=== PATIENT | female | born 1945 | race Caucasian/White ===

== ENCOUNTER 2021-06-21 18:03 | Inpatient (IN) ==
[2021-06-21 20:02] LABS: Basophils % 0.2 % (0.0-0.8); Eosinophils # 0.1 10*3/uL (0.0-0.87); Eosinophils % 2.2 % (0.00-10.9); Hematocrit 35.9 VOL% (35.7-47.0); Hemoglobin 11.9 GM/DL (12.0-16.0); Immature Granulocytes % 0.2 %; Immature Granulocytes Absolute 0.01 #; Lymphocytes # 0.8 10*3/uL (1.4-4.0); Lymphocytes % 20.2 % (21.3-54.2); Mean Corpuscular HGB Conc 33.1 GM/DL (32-36); Mean Corpuscular Volume 88.9 FL (87-102); Mean Platelet Volume 9.6 FL (9.6-12.0); Monocytes % 7.2 % (1.7-12.7); Platelet Count 87 T/CUMM (130-400); Red Blood Count 4.04 MC/CUMM (3.8-5.5); Red Cell Distribution Width 14.2 % (9.3-17.3); White Blood Count 4.2 T/CUMM (4-12)
[2021-06-21 20:34] LABS: Albumin 3.4 G/DL (3.4-5.0); Bilirubin,Total 0.9 MG/DL (0.20-1.00); Osmolality,Calculated 276.5 MOS/KG (273-304); Potassium 4.1 MMOL/L (3.5-5.1); Total Protein 7.3 G/DL (6.4-8.2)
[2021-06-21] MEDS ORDERED: DALBAVANCIN 1,500 MG in DEXTROSE 5% 500 ML IV ONE (20:48)
[2021-06-21] MEDS ORDERED: ONDANSETRON 4 MG/2 ML VIAL ONE (22:54)
[2021-06-21] MEDS ORDERED: diphenhydrAMINE 50 MG/1 ML VIAL ONE (22:54)
[2021-06-21] MEDS ORDERED: EPINEPHrine 1 MG/ML VIAL ONE (22:56)
[2021-06-21] MEDS ORDERED: methylPREDNISolone SOD SUC 125 MG/2 ML VIAL ONE (23:11)
[2021-06-21] MEDS ORDERED: methylPREDNISolone SOD SUC 125 MG/2 ML VIAL IV STA (23:15)
[2021-06-21] MEDS ORDERED: LEVALBUTEROL 0.63 MG/3 ML NEB RESP TX ONE (23:15)
[2021-06-21] MEDS ORDERED: FAMOTIDINE 20 MG/2 ML VIAL IV ONE (23:15)
[2021-06-21] MEDS ORDERED: LEVALBUTEROL 1.25 MG/3 ML NEB RESP TX ONE (23:15)
[2021-06-21] MEDS ORDERED: SODIUM CHLORIDE 0.9% 1,000 ML IV STA (23:16)
[2021-06-21] MEDS ORDERED: FAMOTIDINE 20 MG/2 ML VIAL IV STA (23:16)
[2021-06-21] MEDS ORDERED: FUROSEMIDE 100 MG/10 ML VIAL ONE (23:31)
[2021-06-21] MEDS ORDERED: FUROSEMIDE 40 MG/4 ML VIAL IV STA (23:55)
[2021-06-22] MEDS ORDERED: EPINEPHrine 1 MG/ML VIAL SUBCUT STA (00:08)
[2021-06-22] MEDS ORDERED: diphenhydrAMINE 50 MG/1 ML VIAL IV STA (00:08)
[2021-06-22] MEDS ORDERED: ONDANSETRON 4 MG/2 ML VIAL IV STA (00:09)
[2021-06-22 00:46] LABS: ABG Base Excess -2.8 MMOL/L (-2.5-2.5); ABG HCO3 22.1 MMOL/L (20-26); ABG Oxygen Saturation 99.9 % (95-100); ABG PCO2 37.8 MM HG (35-48); ABG PH 7.374 (7.35-7.45); ABG TCO2 19.1 MMOL/L (23-27)
[2021-06-22] MEDS ORDERED: LEVALBUTEROL 0.63 MG/3 ML NEB RESP TX STA (01:00)
[2021-06-22] MEDS ORDERED: PANTOPRAZOLE 40 MG VIAL IV STA (03:21)
[2021-06-22] MEDS ORDERED: ENOXAPARIN 60 MG/0.6 ML SYRINGE SUBCUT ONE (04:00)
[2021-06-22] MEDS ORDERED: ONDANSETRON 4 MG/2 ML VIAL IV PRN (04:23)
[2021-06-22] MEDS ORDERED: LEVALBUTEROL 0.63 MG/3 ML NEB RESP TX SCH (04:23)
[2021-06-22] MEDS ORDERED: GLUCAGON 1 MG VIAL IM PRN (04:23)
[2021-06-22] MEDS ORDERED: DEXTROSE 50% 25 GM/50 ML VIAL IV PRN (04:23)
[2021-06-22 06:37] LABS: Basophils % 0.1 % (0.0-0.8); Eosinophils % 0.1 % (0.00-10.9); Hematocrit 39.6 VOL% (35.7-47.0); Hemoglobin 13.2 GM/DL (12.0-16.0); Immature Granulocytes % 0.6 %; Immature Granulocytes Absolute 0.05 #; Lymphocytes # 0.4 10*3/uL (1.4-4.0); Lymphocytes % 3.9 % (21.3-54.2); Mean Corpuscular HGB Conc 33.3 GM/DL (32-36); Mean Corpuscular Volume 88.6 FL (87-102); Mean Platelet Volume 10.1 FL (9.6-12.0); Monocytes % 1.2 % (1.7-12.7); Neutrophils % 94.1 % (38.7-73.9); Platelet Count 97 T/CUMM (130-400); Red Blood Count 4.47 MC/CUMM (3.8-5.5); Red Cell Distribution Width 14.2 % (9.3-17.3); White Blood Count 8.9 T/CUMM (4-12)
[2021-06-22] MEDS: LEVALBUTEROL 0.63 MG/3 ML NEB RESP TX SCH ×5 (07:00→23:00)
[2021-06-22 07:09] LABS: Albumin 3.3 G/DL (3.4-5.0); Band Neutrophils 2 % (0-10); Bilirubin,Total 1.6 MG/DL (0.20-1.00); Calcium 9.1 MG/DL (8.5-10.1); Eosinophils 1 % (0-10); Lymphocytes 4 % (20-55); Osmolality,Calculated 284.1 MOS/KG (273-304); Potassium 3.8 MMOL/L (3.5-5.1); Segmented Neutrophils 89 % (50-85); Total Cells Counted 100; Total Protein 7.4 G/DL (6.4-8.2)
[2021-06-22 07:10] LABS: Anisocytosis 1+; Hypochromasia Slight; Platelet Estimate Decreased
[2021-06-22] MEDS ORDERED: methylPREDNISolone SOD SUC 125 MG/2 ML VIAL IV ONE ×2 (08:39→16:00)
[2021-06-22] MEDS ORDERED: DIAZEPAM 5 MG TABLET PO ONE (08:40)
[2021-06-22] MEDS ORDERED: MAGNESIUM SULF RIDER 2 GM/50 ML PREMIX IV PRN (08:40)
[2021-06-22] MEDS ORDERED: POTASSIUM CHLORIDE RIDER 10 MEQ/100 ML PREMIX IV PRN (08:40)
[2021-06-22] MEDS ORDERED: diphenhydrAMINE 50 MG/1 ML VIAL IV ONE (08:44)
[2021-06-22] MEDS ORDERED: ASPIRIN CHEW 81 MG TABLET PO ONE (08:54)
[2021-06-22] MEDS ORDERED: METOPROLOL TARTRATE 5 MG/5 ML VIAL IV ONE (08:59)
[2021-06-22] MEDS ORDERED: methylPREDNISolone SOD SUC 125 MG/2 ML VIAL IV SCH (09:00)
[2021-06-22] MEDS ORDERED: predniSONE 20 MG TABLET PO SCH (09:00)
[2021-06-22] MEDS ORDERED: FUROSEMIDE 40 MG/4 ML VIAL IV SCH (09:00)
[2021-06-22] MEDS ORDERED: diphenhydrAMINE CAP 25 MG CAPSULE PO ONE (09:00)
[2021-06-22] MEDS: SODIUM CHLORIDE 0.9% 1,000 ML IV SCH ×2 (09:04→11:41)
[2021-06-22] MEDS: INSULIN LISPRO 100 UNIT/ML SUBCUT SCH ×3 (09:11→17:15)
[2021-06-22] MEDS ORDERED: MIDAZOLAM 2 MG/2 ML VIAL ONE (09:25)
[2021-06-22] MEDS ORDERED: fentaNYL 100 MCG/2 ML VIAL ONE (09:25)
[2021-06-22] MEDS: FAMOTIDINE INJ 40 MG in SODIUM CHLORIDE 0.9% 100 ML IV SCH (09:28)
[2021-06-22 09:29] LABS: INR 1.1; PT Patient Result 12.4 SECS (10.5-12.0)
[2021-06-22] MEDS ORDERED: PHENYLEPHRINE 50 MG/5 ML VIAL ONE (10:11)
[2021-06-22] MEDS ORDERED: PHENYLEPHRINE DRIP 40 MG/250 ML PREMIX IV PRN (10:20)
[2021-06-22] MEDS: diphenhydrAMINE CAP 25 MG CAPSULE PO SCH ×2 (13:49→18:46)
[2021-06-22 19:37] LABS: ABG Base Excess -5.5 MMOL/L (-2.5-2.5); ABG HCO3 19.9 MMOL/L (20-26); ABG Oxygen Saturation 96.4 % (95-100); ABG PCO2 31.6 MM HG (35-48); ABG PH 7.379 (7.35-7.45); ABG PO2 82.9 MM HG (80-95); ABG TCO2 16.4 MMOL/L (23-27)
[2021-06-22] MEDS ORDERED: LORazepam 2 MG/1 ML VIAL IV ONE (19:44)
[2021-06-22] MEDS ORDERED: FUROSEMIDE 40 MG/4 ML VIAL IV ONE (19:53)
[2021-06-22] MEDS: MELATONIN 3 MG TABLET PO PRN (20:23)
[2021-06-22] MEDS: ROSUVASTATIN 20 MG TABLET PO SCH (20:23)
[2021-06-22] MEDS: rOPINIRole 0.25 MG TABLET PO SCH (21:37)
[2021-06-23] MEDS: diphenhydrAMINE CAP 25 MG CAPSULE PO SCH ×2 (00:01→06:07)
[2021-06-23] MEDS: INSULIN LISPRO 100 UNIT/ML SUBCUT SCH ×5 (00:11→21:41)
[2021-06-23] MEDS: FAMOTIDINE INJ 40 MG in SODIUM CHLORIDE 0.9% 100 ML IV SCH (00:16)
[2021-06-23] MEDS: LEVALBUTEROL 0.63 MG/3 ML NEB RESP TX SCH ×6 (02:10→23:00)
[2021-06-23 03:47] LABS: Hematocrit 34.5 VOL% (35.7-47.0); Hemoglobin 11.4 GM/DL (12.0-16.0); Immature Granulocytes % 0.5 %; Immature Granulocytes Absolute 0.04 #; Lymphocytes # 0.7 10*3/uL (1.4-4.0); Lymphocytes % 7.6 % (21.3-54.2); Mean Corpuscular Volume 89.1 FL (87-102); Mean Platelet Volume 10.6 FL (9.6-12.0); Monocytes % 3.4 % (1.7-12.7); Neutrophils % 88.5 % (38.7-73.9); Platelet Count 83 T/CUMM (130-400); Red Blood Count 3.87 MC/CUMM (3.8-5.5); Red Cell Distribution Width 14.6 % (9.3-17.3); White Blood Count 8.9 T/CUMM (4-12)
[2021-06-23 04:06] LABS: Calcium 8.7 MG/DL (8.5-10.1); Osmolality,Calculated 284.4 MOS/KG (273-304); Potassium 3.7 MMOL/L (3.5-5.1)
[2021-06-23 04:11] LABS: Risk Ratio 4.06; VLDL Cholesterol 19.8 MG/DL
[2021-06-23] MEDS ORDERED: MAGNESIUM SULF RIDER 2 GM/50 ML PREMIX IV ONE (07:07)
[2021-06-23] MEDS ORDERED: POTASSIUM CHLORIDE 20 MEQ TABLET PO ONE (07:07)
[2021-06-23] MEDS ORDERED: ENOXAPARIN 60 MG/0.6 ML SYRINGE SUBCUT ONE (07:08)
[2021-06-23] MEDS ORDERED: predniSONE 20 MG TABLET PO SCH (09:00)
[2021-06-23] MEDS: ASPIRIN EC 81 MG TABLET PO SCH (10:07)
[2021-06-23] MEDS: rOPINIRole 0.25 MG TABLET PO SCH ×4 (10:08→20:09)
[2021-06-23] MEDS: ASCORBIC ACID 500 MG TABLET PO SCH (10:08)
[2021-06-23 10:09] LABS: ABG Base Excess 0.6 MMOL/L (-2.5-2.5); ABG HCO3 24.9 MMOL/L (20-26); ABG Oxygen Saturation 97.2 % (95-100); ABG PCO2 34.3 MM HG (35-48); ABG PH 7.453 (7.35-7.45); ABG PO2 84.8 MM HG (80-95); ABG TCO2 21.3 MMOL/L (23-27)
[2021-06-23] MEDS: CHLORHEXIDINE 0.12% ORAL RINSE 60 ML BOTTLE SWISH/SPIT SCH ×2 (10:50→21:42)
[2021-06-23] MEDS: CHLORHEXIDINE 4% SOLN 118 ML BOTTLE TOP SCH ×3 (10:50→21:40)
[2021-06-23] MEDS: SODIUM CHLORIDE 0.9% 1,000 ML IV SCH ×2 (11:20→23:51)
[2021-06-23] MEDS: METOPROLOL TARTRATE 25 MG TABLET PO SCH ×2 (11:59→20:09)
[2021-06-23 12:44] LABS: CKMB % 12.2 %
[2021-06-23 12:50] LABS: High Sensitive Troponin I* 21094.4 ng/L (0-54)
[2021-06-23] MEDS ORDERED: LORazepam 2 MG/1 ML VIAL IV PRN (17:05)
[2021-06-23 17:29] LABS: CKMB % 11.7 %
[2021-06-23] MEDS: ROSUVASTATIN 20 MG TABLET PO SCH (20:09)
[2021-06-23] MEDS: MELATONIN 3 MG TABLET PO PRN (20:45)
[2021-06-24 03:58] LABS: Eosinophils # 0.1 10*3/uL (0.0-0.87); Eosinophils % 0.5 % (0.00-10.9); Hematocrit 34.5 VOL% (35.7-47.0); Hemoglobin 11.1 GM/DL (12.0-16.0); Immature Granulocytes % 0.4 %; Immature Granulocytes Absolute 0.04 #; Lymphocytes # 1.2 10*3/uL (1.4-4.0); Lymphocytes % 12.6 % (21.3-54.2); Mean Corpuscular HGB Conc 32.2 GM/DL (32-36); Mean Platelet Volume 10.8 FL (9.6-12.0); Monocytes % 5.6 % (1.7-12.7); Neutrophils % 80.9 % (38.7-73.9); Platelet Count 71 T/CUMM (130-400); Red Blood Count 3.79 MC/CUMM (3.8-5.5); Red Cell Distribution Width 14.8 % (9.3-17.3); White Blood Count 9.8 T/CUMM (4-12)
[2021-06-24 04:15] LABS: Calcium 8.4 MG/DL (8.5-10.1); Osmolality,Calculated 283.8 MOS/KG (273-304); Potassium 4.3 MMOL/L (3.5-5.1)
[2021-06-24 04:17] LABS: Hypochromasia Slight; Microcytosis Slight; Platelet Estimate Decreased
[2021-06-24 04:19] LABS: CKMB % 8.3 %
[2021-06-24 04:21] LABS: High Sensitive Troponin I* 15882.8 ng/L (0-54)
[2021-06-24] MEDS ORDERED: VANCOMYCIN 500 MG VIAL ONE (04:21)
[2021-06-24] MEDS ORDERED: PAPAVERINE 60 MG/2 ML VIAL ONE (04:21)
[2021-06-24] MEDS ORDERED: VANCOMYCIN 1,000 MG VIAL ONE (04:21)
[2021-06-24] MEDS ORDERED: CEFUROXIME INJ 1,500 MG in SODIUM CHLORIDE 0.9% 100 ML IV ONE (05:00)
[2021-06-24] MEDS: LEVALBUTEROL 0.63 MG/3 ML NEB RESP TX SCH ×3 (05:00→10:50)
[2021-06-24] MEDS ORDERED: FAMOTIDINE 20 MG TABLET PO ONE (05:30)
[2021-06-24] MEDS ORDERED: LORazepam 1 MG TABLET PO ONE (05:30)
[2021-06-24] MEDS ORDERED: MINERAL OIL/PETROLATUM OPH OINT 3.5 GM TUBE ONE (05:56)
[2021-06-24] MEDS ORDERED: MIDAZOLAM 10 MG/2 ML VIAL ONE ×3 (06:08→08:39)
[2021-06-24] MEDS ORDERED: HEPARIN/NACL 0.9% 2 UNITS/ML 1,000 UNIT/500 ML BAG IV ONE (06:08)
[2021-06-24] MEDS ORDERED: CALCIUM CHLORIDE 1,000 MG/10 ML VIAL IV ONE ×2 (06:08→12:00)
[2021-06-24] MEDS ORDERED: SODIUM CHLORIDE 0.9% 250 ML IV ONE (06:08)
[2021-06-24] MEDS ORDERED: SUFentanil 250 MCG/5 ML AMP ONE (06:08)
[2021-06-24] MEDS ORDERED: SODIUM CHLORIDE 0.9% 1,000 ML IV ONE (06:08)
[2021-06-24] MEDS ORDERED: LACTATED RINGERS 1,000 ML IV ONE (06:08)
[2021-06-24] MEDS ORDERED: VECURONIUM 10 MG VIAL IV ONE ×2 (06:08→08:39)
[2021-06-24] MEDS ORDERED: LIDOCAINE 2% 5 ML VIAL ONE ×2 (06:08→12:06)
[2021-06-24] MEDS ORDERED: PHENYLEPHRINE DRIP 20 MG/250 ML PREMIX IV ONE (06:08)
[2021-06-24] MEDS ORDERED: SEVOFLURANE 1 UNIT/15 MINUTE INH ONE (06:09)
[2021-06-24 07:41] LABS: ABG Base Excess -1.6 MMOL/L (-2.5-2.5); ABG HCO3 23.1 MMOL/L (20-26); ABG Oxygen Saturation 99.9 % (95-100); ABG PCO2 35.6 MM HG (35-48); ABG PH 7.409 (7.35-7.45); ABG TCO2 20.3 MMOL/L (23-27); Glucose Heart Surgery 138 MG/DL (74-106); Hematocrit Heart Surgery 33.6 PERCENT (37-47); Hemoglobin Heart Surgery 10.9 G/DL (12.0-16.0); Ionized Calcium Arterial 1.15 MMOL/L (1.21-1.46); PCO2 Patient Temp Arterial 35.6 MMHG; PH Patient Temp Arterial 7.409; Patient Temperature 37 CELCIUS; Potassium Heart/CVR 3.8 MMOL/L (3.5-5.1); Sodium Heart/CVR 139 MMOL/L (135-145)
[2021-06-24] MEDS ORDERED: NITROPRUSSIDE 50 MG/2 ML VIAL ONE (07:44)
[2021-06-24] MEDS ORDERED: SODIUM BICARBONATE 50 MEQ/50 ML VIAL IV ONE ×2 (07:44→12:07)
[2021-06-24] MEDS ORDERED: CALCIUM CHLORIDE 1,000 MG/10 ML SYRINGE IV ONE (07:45)
[2021-06-24] MEDS ORDERED: ALBUMIN 5% 12.5 GM/250 ML VIAL IV ONE (07:45)
[2021-06-24] MEDS ORDERED: POTASSIUM CHLORIDE RIDER 20 MEQ/100 ML PREMIX IV ONE (07:45)
[2021-06-24] MEDS ORDERED: EPINEPHrine 1 MG/10 ML SYRINGE ONE (07:45)
[2021-06-24] MEDS: SODIUM CHLORIDE 0.9% 1,000 ML IV SCH (08:44)
[2021-06-24] MEDS: ASCORBIC ACID 500 MG TABLET PO SCH (08:44)
[2021-06-24] MEDS: CHLORHEXIDINE 0.12% ORAL RINSE 60 ML BOTTLE SWISH/SPIT SCH ×2 (08:44→20:43)
[2021-06-24] MEDS: METOPROLOL TARTRATE 25 MG TABLET PO SCH ×3 (08:44→21:16)
[2021-06-24] MEDS: rOPINIRole 0.25 MG TABLET PO SCH ×2 (08:44→12:08)
[2021-06-24] MEDS: INSULIN LISPRO 100 UNIT/ML SUBCUT SCH ×2 (08:44→10:50)
[2021-06-24] MEDS: ASPIRIN EC 81 MG TABLET PO SCH (08:44)
[2021-06-24 09:17] LABS: Hematocrit Heart Surgery 20.3 PERCENT (37-47); Hemoglobin Heart Surgery 6.5 G/DL (12.0-16.0); PH Patient Temp Venous 7.338; PO2 Patient Temp Venous 41.6 MM HG; Potassium Heart/CVR 4.6 MMOL/L (3.5-5.1); VBG Base Excess -0.9 MEQ/L (0-4); VBG HCO3 23.5 MEQ/L (24-28); VBG Oxygen Saturation 79.2 %; VBG PCO2 50.7 MMHG (41-51); VBG PH 7.31; VBG PO2 47.6 MMHG (17-40); VBG Total CO2 24.5 MMOL/L
[2021-06-24 09:44] LABS: Hemoglobin Heart Surgery 6.4 G/DL (12.0-16.0); PCO2 Patient Temp Venous 42.1 MM HG; PH Patient Temp Venous 7.374; PO2 Patient Temp Venous 41.4 MM HG; Potassium Heart/CVR 4.4 MMOL/L (3.5-5.1); VBG Base Excess -1.1 MEQ/L (0-4); VBG HCO3 24.8 MEQ/L (24-28); VBG Oxygen Saturation 83.8 %; VBG PH 7.331; VBG PO2 51.1 MMHG (17-40); VBG Total CO2 26.3 MMOL/L
[2021-06-24 10:18] LABS: Hematocrit Heart Surgery 28.2 PERCENT (37-47); Hemoglobin Heart Surgery 9.1 G/DL (12.0-16.0); PCO2 Patient Temp Venous 40.1 MM HG; PH Patient Temp Venous 7.36; Potassium Heart/CVR 4.4 MMOL/L (3.5-5.1); VBG Base Excess -2.4 MEQ/L (0-4); VBG HCO3 22.1 MEQ/L (24-28); VBG Oxygen Saturation 82.5 %; VBG PCO2 46.4 MMHG (41-51); VBG PH 7.318; VBG PO2 51.5 MMHG (17-40); VBG Total CO2 22.1 MMOL/L
[2021-06-24] MEDS ORDERED: SUFentanil 50 MCG/ML AMP ONE (10:20)
[2021-06-24] MEDS ORDERED: FAMOTIDINE 20 MG/2 ML VIAL IV ONE (10:23)
[2021-06-24] MEDS ORDERED: DOBUTamine 500 MG/250 ML PREMIX IV ONE ×2 (10:51→12:38)
[2021-06-24 11:18] LABS: Hematocrit Heart Surgery 22.4 PERCENT (37-47); Hemoglobin Heart Surgery 7.2 G/DL (12.0-16.0); PCO2 Patient Temp Venous 34.7 MM HG; PH Patient Temp Venous 7.403; PO2 Patient Temp Venous 33.4 MM HG; Potassium Heart/CVR 4.7 MMOL/L (3.5-5.1); VBG Base Excess -2.7 MEQ/L (0-4); VBG HCO3 21.8 MEQ/L (24-28); VBG Oxygen Saturation 65.6 %; VBG PCO2 34.7 MMHG (41-51); VBG PH 7.403; VBG PO2 33.4 MMHG (17-40); VBG Total CO2 20.5 MMOL/L
[2021-06-24 11:55] LABS: ABG Base Excess -5.1 MMOL/L (-2.5-2.5); ABG HCO3 20.2 MMOL/L (20-26); ABG PCO2 32.7 MM HG (35-48); ABG PH 7.379 (7.35-7.45); ABG TCO2 17.9 MMOL/L (23-27); Glucose Heart Surgery 338 MG/DL (74-106); Hematocrit Heart Surgery 26.7 PERCENT (37-47); Hemoglobin Heart Surgery 8.6 G/DL (12.0-16.0); Ionized Calcium Arterial 1.15 MMOL/L (1.21-1.46); PCO2 Patient Temp Arterial 32.7 MMHG; PH Patient Temp Arterial 7.379; Patient Temperature 37 CELCIUS; Sodium Heart/CVR 134 MMOL/L (135-145)
[2021-06-24] MEDS ORDERED: ALBUMIN 25% 25 GM/100 ML VIAL IV ONE (12:06)
[2021-06-24] MEDS ORDERED: MAGNESIUM SULFATE 5 GM/10 ML VIAL IV ONE (12:06)
[2021-06-24] MEDS ORDERED: methylPREDNISolone SOD SUC 1,000 MG/8 ML VIAL ONE (12:06)
[2021-06-24] MEDS ORDERED: DEXTROSE 5% KCL 20 MEQ 20 MEQ/1,000 ML BAG IV ONE (12:06)
[2021-06-24] MEDS ORDERED: HEPARIN 10,000 UNIT/10 ML VIAL ONE (12:07)
[2021-06-24] MEDS ORDERED: PROTAMINE SULFATE 250 MG/25 ML VIAL IV ONE (12:07)
[2021-06-24] MEDS ORDERED: FUROSEMIDE 20 MG/2 ML VIAL ONE (12:07)
[2021-06-24] MEDS ORDERED: MANNITOL 12.5 GM/50 ML VIAL IV ONE (12:07)
[2021-06-24] MEDS: DOBUTamine 500 MG/250 ML PREMIX IV PRN (12:45)
[2021-06-24] MEDS: SODIUM CHLORIDE 0.45% 1,000 ML IV SCH ×2 (12:50)
[2021-06-24] MEDS ORDERED: DEXTROSE 50% 25 GM/50 ML VIAL IV PRN ×2 (13:22)
[2021-06-24] MEDS ORDERED: CALCIUM CHLORIDE 1,000 MG/10 ML SYRINGE IV PRN (13:22)
[2021-06-24] MEDS ORDERED: MAGNESIUM SULF RIDER 4 GM/100 ML PREMIX IV PRN (13:22)
[2021-06-24] MEDS ORDERED: NITROPRUSSIDE 100 MG in DEXTROSE 5% 250 ML IV PRN (13:22)
[2021-06-24] MEDS ORDERED: ACETAMINOPHEN 650 MG SUPP RECTAL PRN (13:22)
[2021-06-24] MEDS ORDERED: MIDAZOLAM 2 MG/2 ML VIAL IV PRN (13:22)
[2021-06-24] MEDS ORDERED: MIDAZOLAM 10 MG/2 ML VIAL IV PRN (13:22)
[2021-06-24] MEDS ORDERED: MAGNESIUM SULF RIDER 2 GM/50 ML PREMIX IV PRN (13:22)
[2021-06-24] MEDS ORDERED: VECURONIUM 10 MG VIAL IV PRN ×2 (13:22)
[2021-06-24] MEDS ORDERED: ONDANSETRON 4 MG/2 ML VIAL IV PRN (13:22)
[2021-06-24] MEDS ORDERED: INSULIN REGULAR 100 UNIT/ML IV ONE (13:22)
[2021-06-24] MEDS ORDERED: INSULIN REGULAR 100 UNIT/ML IV PRN (13:22)
[2021-06-24 13:33] LABS: ABG Base Excess -4.3 MMOL/L (-2.5-2.5); ABG HCO3 19.1 MMOL/L (20-26); ABG Oxygen Saturation 98.8 % (95-100); ABG PCO2 29.2 MM HG (35-48); ABG PH 7.434 (7.35-7.45); ABG PO2 320.2 MM HG (80-95); Glucose Heart Surgery 298 MG/DL (74-106); Hemoglobin Heart Surgery 9.2 G/DL (12.0-16.0)
[2021-06-24 13:40] LABS: Eosinophils % 0.3 % (0.00-10.9); Hemoglobin 8.8 GM/DL (12.0-16.0); Immature Granulocytes % 1.3 %; Lymphocytes # 0.6 10*3/uL (1.4-4.0); Lymphocytes % 8.4 % (21.3-54.2); Mean Corpuscular HGB Conc 32.6 GM/DL (32-36); Mean Corpuscular Volume 92.5 FL (87-102); Mean Platelet Volume 10.3 FL (9.6-12.0); Monocytes % 5.8 % (1.7-12.7); Neutrophils % 84.2 % (38.7-73.9); Platelet Count 74 T/CUMM (130-400); Red Blood Count 2.92 MC/CUMM (3.8-5.5); Red Cell Distribution Width 14.6 % (9.3-17.3); White Blood Count 7.6 T/CUMM (4-12)
[2021-06-24 13:58] LABS: INR 1.2; PT Patient Result 13.4 SECS (10.5-12.0)
[2021-06-24 14:00] LABS: Albumin 2.8 G/DL (3.4-5.0); Bilirubin,Total 1.5 MG/DL (0.20-1.00); Calcium 8.8 MG/DL (8.5-10.1); Osmolality,Calculated 297.4 MOS/KG (273-304); Potassium 4.1 MMOL/L (3.5-5.1); Total Protein 5.4 G/DL (6.4-8.2)
[2021-06-24 14:08] LABS: CKMB % 7.2 %
[2021-06-24 14:15] LABS: High Sensitive Troponin I* 32823.7 ng/L (0-54)
[2021-06-24] MEDS: INSULIN REGULAR DRIP 100 ML IV SCH (14:15)
[2021-06-24] MEDS ORDERED: NITROGLYCERIN DRIP 50 MG/250 ML BOTTLE IV ONE (14:17)
[2021-06-24] MEDS: LACTATED RINGERS 250 ML IV PRN ×6 (14:30→23:28)
[2021-06-24] MEDS ORDERED: NITROGLYCERIN DRIP 50 MG/250 ML BOTTLE IV PRN (14:42)
[2021-06-24 14:47] LABS: ABG Base Excess -5.3 MMOL/L (-2.5-2.5); ABG HCO3 20.1 MMOL/L (20-26); ABG PCO2 32.7 MM HG (35-48); ABG PH 7.375 (7.35-7.45); ABG TCO2 17.4 MMOL/L (23-27); Glucose Heart Surgery 341 MG/DL (74-106); Hematocrit Heart Surgery 31.3 PERCENT (37-47); Hemoglobin Heart Surgery 10.1 G/DL (12.0-16.0); Potassium Heart/CVR 3.5 MMOL/L (3.5-5.1)
[2021-06-24] MEDS: POTASSIUM CHLORIDE RIDER 20 MEQ/100 ML PREMIX IV PRN ×3 (14:50→22:13)
[2021-06-24] MEDS: ALBUMIN 5% 12.5 GM/250 ML VIAL IV PRN ×4 (14:55→23:32)
[2021-06-24] MEDS: KETOROLAC 15 MG/1 ML VIAL IV SCH ×2 (15:03→20:43)
[2021-06-24 16:14] LABS: ABG HCO3 21.1 MMOL/L (20-26); ABG Oxygen Saturation 99.4 % (95-100); ABG PCO2 31.4 MM HG (35-48); ABG PH 7.411 (7.35-7.45); ABG TCO2 18.5 MMOL/L (23-27); Glucose Heart Surgery 290 MG/DL (74-106); Hematocrit Heart Surgery 25.9 PERCENT (37-47); Hemoglobin Heart Surgery 8.3 G/DL (12.0-16.0); Potassium Heart/CVR 3.8 MMOL/L (3.5-5.1)
[2021-06-24] MEDS: PHENYLEPHRINE DRIP 40 MG/250 ML PREMIX IV PRN (16:50)
[2021-06-24] MEDS: POTASSIUM CHLORIDE RIDER 10 MEQ/100 ML PREMIX IV PRN (17:15)
[2021-06-24 17:41] LABS: ABG Base Excess -5.4 MMOL/L (-2.5-2.5); ABG Oxygen Saturation 99.4 % (95-100); ABG PCO2 32.3 MM HG (35-48); ABG PH 7.378 (7.35-7.45); ABG TCO2 17.5 MMOL/L (23-27); Glucose Heart Surgery 244 MG/DL (74-106); Hematocrit Heart Surgery 28.8 PERCENT (37-47); Hemoglobin Heart Surgery 9.3 G/DL (12.0-16.0); Potassium Heart/CVR 5.2 MMOL/L (3.5-5.1)
[2021-06-24] MEDS ORDERED: FUROSEMIDE 40 MG/4 ML VIAL IV ONE (17:49)
[2021-06-24 19:54] LABS: ABG Base Excess -3.8 MMOL/L (-2.5-2.5); ABG HCO3 21.3 MMOL/L (20-26); ABG PCO2 40.4 MM HG (35-48); ABG PH 7.339 (7.35-7.45); ABG TCO2 19.6 MMOL/L (23-27); Glucose Heart Surgery 199 MG/DL (74-106); Hematocrit Heart Surgery 34.5 PERCENT (37-47); Hemoglobin Heart Surgery 11.2 G/DL (12.0-16.0); Potassium Heart/CVR 3.8 MMOL/L (3.5-5.1)
[2021-06-24] MEDS: CEFUROXIME INJ 1,500 MG in SODIUM CHLORIDE 0.9% 100 ML IV SCH (21:17)
[2021-06-24 21:46] LABS: High Sensitive Troponin I* 33044.4 ng/L (0-54)
[2021-06-24 22:09] LABS: ABG Base Excess -2.7 MMOL/L (-2.5-2.5); ABG HCO3 22.2 MMOL/L (20-26); ABG Oxygen Saturation 98.7 % (95-100); ABG PCO2 39.3 MM HG (35-48); ABG PH 7.364 (7.35-7.45); ABG TCO2 20.3 MMOL/L (23-27); Glucose Heart Surgery 143 MG/DL (74-106); Hematocrit Heart Surgery 32.6 PERCENT (37-47); Hemoglobin Heart Surgery 10.5 G/DL (12.0-16.0); Potassium Heart/CVR 3.7 MMOL/L (3.5-5.1)
[2021-06-25] MEDS: MORPHINE 10 MG/1 ML VIAL IV PRN ×3 (01:48→17:41)
[2021-06-25 01:59] LABS: ABG Base Excess -2.2 MMOL/L (-2.5-2.5); ABG HCO3 22.5 MMOL/L (20-26); ABG Oxygen Saturation 98.3 % (95-100); ABG PCO2 35.7 MM HG (35-48); ABG PH 7.399 (7.35-7.45); ABG TCO2 20.1 MMOL/L (23-27); Glucose Heart Surgery 136 MG/DL (74-106); Hematocrit Heart Surgery 31.3 PERCENT (37-47); Hemoglobin Heart Surgery 10.1 G/DL (12.0-16.0); Potassium Heart/CVR 4.1 MMOL/L (3.5-5.1)
[2021-06-25] MEDS ORDERED: FUROSEMIDE 40 MG/4 ML VIAL IV ONE ×3 (02:07→18:08)
[2021-06-25] MEDS ORDERED: METOPROLOL TARTRATE 25 MG TABLET PO ONE (02:30)
[2021-06-25] MEDS: KETOROLAC 15 MG/1 ML VIAL IV SCH ×4 (02:39→20:18)
[2021-06-25 03:29] LABS: ABG Base Excess -0.7 MMOL/L (-2.5-2.5); ABG HCO3 23.9 MMOL/L (20-26); ABG PCO2 34.5 MM HG (35-48); ABG PH 7.433 (7.35-7.45); ABG PO2 95.2 MM HG (80-95); ABG TCO2 20.8 MMOL/L (23-27); Glucose Heart Surgery 135 MG/DL (74-106); Hematocrit Heart Surgery 32.2 PERCENT (37-47); Hemoglobin Heart Surgery 10.4 G/DL (12.0-16.0); Potassium Heart/CVR 3.7 MMOL/L (3.5-5.1)
[2021-06-25 03:34] LABS: Hematocrit 30.9 VOL% (35.7-47.0); Hemoglobin 10.2 GM/DL (12.0-16.0); Immature Granulocytes % 0.6 %; Immature Granulocytes Absolute 0.03 #; Lymphocytes # 0.5 10*3/uL (1.4-4.0); Lymphocytes % 10.7 % (21.3-54.2); Mean Corpuscular Volume 88.5 FL (87-102); Mean Platelet Volume 11.1 FL (9.6-12.0); Monocytes % 4.4 % (1.7-12.7); Neutrophils % 84.3 % (38.7-73.9); Red Blood Count 3.49 MC/CUMM (3.8-5.5); Red Cell Distribution Width 14.7 % (9.3-17.3)
[2021-06-25] MEDS: POTASSIUM CHLORIDE RIDER 20 MEQ/100 ML PREMIX IV PRN (03:34)
[2021-06-25 03:40] LABS: Platelet Count 49 T/CUMM (130-400)
[2021-06-25 04:03] LABS: Hypochromasia Slight; Microcytosis Slight; Platelet Estimate Decreased
[2021-06-25 04:05] LABS: Albumin 3.1 G/DL (3.4-5.0); Bilirubin,Direct 0.32 MG/DL (0.0-0.20); Bilirubin,Total 0.9 MG/DL (0.20-1.00); Calcium 8.3 MG/DL (8.5-10.1); Potassium 3.7 MMOL/L (3.5-5.1); Total Protein 5.5 G/DL (6.4-8.2)
[2021-06-25] MEDS: ALBUMIN 5% 12.5 GM/250 ML VIAL IV PRN (04:15)
[2021-06-25] MEDS: POTASSIUM CHLORIDE RIDER 10 MEQ/100 ML PREMIX IV PRN (06:12)
[2021-06-25] MEDS ORDERED: HALOPERIDOL 5 MG/ML AMP IV ONE (06:34)
[2021-06-25 06:51] LABS: CKMB % 8.6 %
[2021-06-25 06:52] LABS: High Sensitive Troponin I* 36099.3 ng/L (0-54)
[2021-06-25] MEDS: METOPROLOL TARTRATE 25 MG TABLET PO SCH ×2 (10:11→20:24)
[2021-06-25] MEDS: CHLORHEXIDINE 0.12% ORAL RINSE 60 ML BOTTLE SWISH/SPIT SCH ×2 (10:11→20:24)
[2021-06-25] MEDS: CEFUROXIME INJ 1,500 MG in SODIUM CHLORIDE 0.9% 100 ML IV SCH ×2 (10:24→20:35)
[2021-06-25] MEDS: INSULIN LISPRO 100 UNIT/ML SUBCUT SCH ×3 (12:16→20:23)
[2021-06-25 14:00] LABS: CKMB % 8.5 %
[2021-06-25 14:03] LABS: High Sensitive Troponin I* 27458.5 ng/L (0-54)
[2021-06-25] MEDS: SODIUM CHLORIDE 0.45% 1,000 ML IV SCH ×2 (15:01→15:02)
[2021-06-25] MEDS: INSULIN REGULAR DRIP 100 ML IV SCH (15:02)
[2021-06-25 15:46] LABS: ABG Base Excess -3.5 MMOL/L (-2.5-2.5); ABG Oxygen Saturation 97.6 % (95-100); ABG PCO2 36.1 MM HG (35-48); ABG PH 7.382 (7.35-7.45); ABG PO2 112.1 MM HG (80-95); ABG TCO2 22.1 MMOL/L (23-27); Glucose Heart Surgery 151 MG/DL (74-106); Hemoglobin Heart Surgery 12.4 G/DL (12.0-16.0); Potassium Heart/CVR 4.7 MMOL/L (3.5-5.1)
[2021-06-25] MEDS: DEXMEDETOMIDINE 200 MCG in SODIUM CHLORIDE 0.9% 48 ML IV PRN ×2 (16:19→22:58)
[2021-06-25] MEDS: PHENYLEPHRINE DRIP 40 MG/250 ML PREMIX IV PRN (17:40)
[2021-06-25] MEDS ORDERED: FUROSEMIDE 40 MG/4 ML VIAL IV PRN (18:09)
[2021-06-26 00:10] LABS: ABG HCO3 20.5 MMOL/L (20-26); ABG Oxygen Saturation 97.6 % (95-100); ABG PCO2 31.7 MM HG (35-48); ABG PH 7.428 (7.35-7.45); ABG PO2 109.1 MM HG (80-95); ABG TCO2 21.4 MMOL/L (23-27); Glucose Heart Surgery 127 MG/DL (74-106); Hemoglobin Heart Surgery 12.5 G/DL (12.0-16.0)
[2021-06-26] MEDS: INSULIN LISPRO 100 UNIT/ML SUBCUT SCH ×6 (00:24→21:28)
[2021-06-26] MEDS: MORPHINE 10 MG/1 ML VIAL IV PRN ×2 (02:38→06:45)
[2021-06-26 03:09] LABS: ABG Base Excess -1.2 MMOL/L (-2.5-2.5); ABG HCO3 23.4 MMOL/L (20-26); ABG Oxygen Saturation 98.5 % (95-100); ABG PCO2 35.8 MM HG (35-48); ABG PH 7.414 (7.35-7.45); ABG TCO2 20.4 MMOL/L (23-27); Glucose Heart Surgery 125 MG/DL (74-106); Hematocrit Heart Surgery 35.2 PERCENT (37-47); Hemoglobin Heart Surgery 11.4 G/DL (12.0-16.0); Potassium Heart/CVR 3.7 MMOL/L (3.5-5.1)
[2021-06-26 03:13] LABS: Hematocrit 34.6 VOL% (35.7-47.0); Hemoglobin 11.3 GM/DL (12.0-16.0); Immature Granulocytes % 0.6 %; Immature Granulocytes Absolute 0.05 #; Lymphocytes # 1.1 10*3/uL (1.4-4.0); Lymphocytes % 13.8 % (21.3-54.2); Mean Corpuscular HGB Conc 32.7 GM/DL (32-36); Mean Corpuscular Volume 89.6 FL (87-102); Mean Platelet Volume 10.9 FL (9.6-12.0); Monocytes % 7.1 % (1.7-12.7); Neutrophils % 78.5 % (38.7-73.9); Platelet Count 68 T/CUMM (130-400); Red Blood Count 3.86 MC/CUMM (3.8-5.5); Red Cell Distribution Width 15.2 % (9.3-17.3); White Blood Count 8.1 T/CUMM (4-12)
[2021-06-26] MEDS: ALBUMIN 5% 12.5 GM/250 ML VIAL IV PRN ×3 (03:25→10:55)
[2021-06-26 03:28] LABS: Albumin 3.2 G/DL (3.4-5.0); Bilirubin,Direct 0.3 MG/DL (0.0-0.20); Bilirubin,Total 0.8 MG/DL (0.20-1.00); Calcium 8.3 MG/DL (8.5-10.1); Osmolality,Calculated 298.8 MOS/KG (273-304); Potassium 3.7 MMOL/L (3.5-5.1)
[2021-06-26 03:40] LABS: Platelet Estimate Decreased
[2021-06-26] MEDS: POTASSIUM CHLORIDE RIDER 20 MEQ/100 ML PREMIX IV PRN ×2 (04:14→09:19)
[2021-06-26] MEDS ORDERED: PHENYLEPHRINE INJ 160 MG in SODIUM CHLORIDE 0.9% 234 ML IV PRN (04:33)
[2021-06-26] MEDS: POTASSIUM CHLORIDE RIDER 10 MEQ/100 ML PREMIX IV PRN (04:45)
[2021-06-26] MEDS ORDERED: HEPARIN/NACL 0.9% 2 UNITS/ML 1,000 UNIT/500 ML BAG IV ONE (05:24)
[2021-06-26] MEDS: CHLORHEXIDINE 0.12% ORAL RINSE 60 ML BOTTLE SWISH/SPIT SCH ×2 (09:24→21:29)
[2021-06-26] MEDS: ASCORBIC ACID 500 MG TABLET NG SCH ×2 (09:31→21:32)
[2021-06-26] MEDS ORDERED: HALOPERIDOL 5 MG/ML AMP IV ONE ×2 (10:45→18:19)
[2021-06-26] MEDS: DOBUTamine 500 MG/250 ML PREMIX IV PRN (11:43)
[2021-06-26] MEDS: SODIUM CHLORIDE 0.45% 1,000 ML IV SCH (14:14)
[2021-06-26] MEDS: MORPHINE 2 MG/1 ML SYRINGE IV PRN ×2 (15:47→18:16)
[2021-06-26] MEDS ORDERED: AMIODARONE INJ 150 MG in DEXTROSE 5% 100 ML IV ONE (16:32)
[2021-06-26] MEDS ORDERED: AMIODARONE 150 MG/3 ML VIAL ONE (16:37)
[2021-06-26] MEDS ORDERED: AMIODARONE INJ 450 MG in DEXTROSE 5% 241 ML IV SCH (17:00)
[2021-06-26] MEDS: DEXMEDETOMIDINE 200 MCG in SODIUM CHLORIDE 0.9% 48 ML IV PRN (18:16)
[2021-06-26] MEDS ORDERED: LORazepam 2 MG/1 ML VIAL IV PRN (18:20)
[2021-06-26] MEDS: CITALOPRAM 20 MG TABLET PO SCH (18:30)
[2021-06-26] MEDS ORDERED: FUROSEMIDE 40 MG/4 ML VIAL IV ONE (19:27)
[2021-06-26] MEDS ORDERED: DEXMEDETOMIDINE 400 MCG in SODIUM CHLORIDE 0.9% 96 ML IV PRN (20:52)
[2021-06-26] MEDS: ACETAMINOPHEN 325 MG TABLET PO PRN (21:31)
[2021-06-26 22:02] LABS: ABG Base Excess -3.9 MMOL/L (-2.5-2.5); ABG Oxygen Saturation 93.1 % (95-100); ABG PCO2 28.1 MM HG (35-48); ABG PH 7.447 (7.35-7.45); ABG PO2 67.5 MM HG (80-95); ABG TCO2 19.8 MMOL/L (23-27); Glucose Heart Surgery 167 MG/DL (74-106); Hemoglobin Heart Surgery 11.5 G/DL (12.0-16.0); Potassium Heart/CVR 4.1 MMOL/L (3.5-5.1)
[2021-06-26] MEDS ORDERED: DILTIAZEM 25 MG/5 ML VIAL IV ONE (22:32)
[2021-06-26] MEDS: DILTIAZEM INJ 100 MG in SODIUM CHLORIDE 0.9% 100 ML IV SCH (22:58)
[2021-06-27] MEDS: AMIODARONE INJ 450 MG in DEXTROSE 5% 241 ML IV SCH ×2 (00:29→16:53)
[2021-06-27] MEDS: INSULIN LISPRO 100 UNIT/ML SUBCUT SCH ×6 (00:36→20:22)
[2021-06-27 01:13] LABS: ABG Base Excess -4.1 MMOL/L (-2.5-2.5); ABG Oxygen Saturation 95.8 % (95-100); ABG PCO2 31.4 MM HG (35-48); ABG PH 7.405 (7.35-7.45); ABG PO2 80.8 MM HG (80-95); ABG TCO2 17.7 MMOL/L (23-27); Glucose Heart Surgery 214 MG/DL (74-106); Potassium Heart/CVR 4.2 MMOL/L (3.5-5.1)
[2021-06-27 03:45] LABS: Basophils % 0.1 % (0.0-0.8); Eosinophils # 0.1 10*3/uL (0.0-0.87); Eosinophils % 0.6 % (0.00-10.9); Hematocrit 32.7 VOL% (35.7-47.0); Hemoglobin 10.8 GM/DL (12.0-16.0); Immature Granulocytes % 0.4 %; Immature Granulocytes Absolute 0.05 #; Lymphocytes # 1.3 10*3/uL (1.4-4.0); Mean Corpuscular Volume 90.3 FL (87-102); Neutrophils % 81.9 % (38.7-73.9); Platelet Count 86 T/CUMM (130-400); Red Blood Count 3.62 MC/CUMM (3.8-5.5)
[2021-06-27 03:59] LABS: Albumin 3.3 G/DL (3.4-5.0); Bilirubin,Direct 0.46 MG/DL (0.0-0.20); Bilirubin,Total 1.2 MG/DL (0.20-1.00); Osmolality,Calculated 301.1 MOS/KG (273-304); Potassium 3.9 MMOL/L (3.5-5.1); Total Protein 5.7 G/DL (6.4-8.2)
[2021-06-27 04:03] LABS: Hypochromasia Slight; Microcytosis Slight; Platelet Estimate Decreased
[2021-06-27] MEDS ORDERED: FUROSEMIDE 40 MG/4 ML VIAL IV PRN ×2 (05:37→18:10)
[2021-06-27] MEDS: POTASSIUM CHLORIDE RIDER 20 MEQ/100 ML PREMIX IV PRN ×2 (06:24→10:40)
[2021-06-27] MEDS: ASCORBIC ACID 500 MG TABLET NG SCH ×2 (08:23→21:27)
[2021-06-27] MEDS: CITALOPRAM 20 MG TABLET PO SCH (08:23)
[2021-06-27] MEDS: CHLORHEXIDINE 0.12% ORAL RINSE 60 ML BOTTLE SWISH/SPIT SCH ×2 (08:24→21:28)
[2021-06-27] MEDS: ACETAMINOPHEN 325 MG TABLET PO PRN ×2 (08:35→15:16)
[2021-06-27] MEDS ORDERED: DILTIAZEM 50 MG/10 ML VIAL IV ONE (11:10)
[2021-06-27] MEDS: DILTIAZEM INJ 100 MG in SODIUM CHLORIDE 0.9% 100 ML IV SCH (13:46)
[2021-06-27] MEDS: SODIUM CHLORIDE 0.45% 1,000 ML IV SCH (15:11)
[2021-06-27] MEDS: ALUMINUM/MAGNES/SIMETH MAX STR 30 ML UDCUP PO PRN (15:17)
[2021-06-27] MEDS: rOPINIRole 0.25 MG TABLET PO SCH ×2 (16:52→21:27)
[2021-06-27] MEDS ORDERED: FUROSEMIDE 40 MG/4 ML VIAL IV ONE ×2 (18:30→21:39)
[2021-06-27] MEDS ORDERED: diphenhydrAMINE CAP 25 MG CAPSULE PO ONE (20:00)
[2021-06-27] MEDS: ALBUTEROL/IPRATROPIUM 3 ML NEB RESP TX SCH (22:03)
[2021-06-27] MEDS: PREGABALIN 25 MG CAPSULE PO SCH (22:20)
[2021-06-27 22:41] LABS: ABG Base Excess -8.8 MMOL/L (-2.5-2.5); ABG HCO3 17.4 MMOL/L (20-26); ABG Oxygen Saturation 95.1 % (95-100); ABG PCO2 28.8 MM HG (35-48); ABG PH 7.346 (7.35-7.45); ABG TCO2 14.1 MMOL/L (23-27); Glucose Heart Surgery 235 MG/DL (74-106); Hematocrit Heart Surgery 35.5 PERCENT (37-47); Hemoglobin Heart Surgery 11.5 G/DL (12.0-16.0); Potassium Heart/CVR 4.2 MMOL/L (3.5-5.1)
[2021-06-27 22:57] LABS: Calcium 8.3 MG/DL (8.5-10.1); Osmolality,Calculated 289.4 MOS/KG (273-304); Potassium 4.2 MMOL/L (3.5-5.1)
[2021-06-27] MEDS: traMADol 50 MG TABLET PO PRN (23:52)
[2021-06-28] MEDS: INSULIN LISPRO 100 UNIT/ML SUBCUT SCH ×6 (01:11→20:06)
[2021-06-28] MEDS: DILTIAZEM INJ 100 MG in SODIUM CHLORIDE 0.9% 100 ML IV SCH ×2 (03:06→23:12)
[2021-06-28] MEDS: ALBUTEROL/IPRATROPIUM 3 ML NEB RESP TX SCH ×5 (03:30→19:30)
[2021-06-28 04:42] LABS: Basophils % 0.1 % (0.0-0.8); Eosinophils # 0.1 10*3/uL (0.0-0.87); Eosinophils % 0.3 % (0.00-10.9); Hematocrit 32.4 VOL% (35.7-47.0); Hemoglobin 10.9 GM/DL (12.0-16.0); Immature Granulocytes % 0.7 %; Immature Granulocytes Absolute 0.12 #; Lymphocytes # 1.5 10*3/uL (1.4-4.0); Lymphocytes % 9.3 % (21.3-54.2); Mean Corpuscular HGB Conc 33.6 GM/DL (32-36); Mean Corpuscular Volume 88.5 FL (87-102); Mean Platelet Volume 11.4 FL (9.6-12.0); Monocytes % 7.4 % (1.7-12.7); NRBC # 0.03 10*3/uL; Neutrophils % 82.2 % (38.7-73.9); Platelet Count 112 T/CUMM (130-400); Red Blood Count 3.66 MC/CUMM (3.8-5.5); Red Cell Distribution Width 14.9 % (9.3-17.3); White Blood Count 16.1 T/CUMM (4-12)
[2021-06-28 04:58] LABS: Calcium 8.5 MG/DL (8.5-10.1); Osmolality,Calculated 290.8 MOS/KG (273-304); Potassium 3.9 MMOL/L (3.5-5.1)
[2021-06-28] MEDS: AMIODARONE INJ 450 MG in DEXTROSE 5% 241 ML IV SCH (08:40)
[2021-06-28] MEDS: POTASSIUM CHLORIDE RIDER 20 MEQ/100 ML PREMIX IV PRN (08:41)
[2021-06-28] MEDS: CITALOPRAM 20 MG TABLET PO SCH (08:41)
[2021-06-28] MEDS: PREGABALIN 25 MG CAPSULE PO SCH ×2 (08:41→21:28)
[2021-06-28] MEDS: rOPINIRole 0.25 MG TABLET PO SCH ×4 (08:41→21:27)
[2021-06-28] MEDS: CHLORHEXIDINE 0.12% ORAL RINSE 60 ML BOTTLE SWISH/SPIT SCH ×2 (08:42→21:28)
[2021-06-28] MEDS: ASCORBIC ACID 500 MG TABLET NG SCH ×2 (08:42→21:28)
[2021-06-28] MEDS: METOPROLOL TARTRATE 25 MG TABLET PO SCH ×2 (08:42→21:28)
[2021-06-28] MEDS: APIXABAN 2.5 MG TABLET PO SCH ×2 (08:43→21:27)
[2021-06-28] MEDS ORDERED: ALPRAZolam 0.25 MG TABLET PO PRN (09:40)
[2021-06-28] MEDS ORDERED: methylPREDNISolone SOD SUC 40 MG/1 ML VIAL IV ONE (09:40)
[2021-06-28] MEDS ORDERED: methylPREDNISolone SOD SUC 40 MG/1 ML VIAL ONE (10:08)
[2021-06-28] MEDS ORDERED: POTASSIUM CHLORIDE 20 MEQ PACK PO ONE (10:48)
[2021-06-28] MEDS ORDERED: FUROSEMIDE 40 MG/4 ML VIAL IV ONE (11:29)
[2021-06-28 13:11] LABS: ABG HCO3 15.1 MMOL/L (20-26); ABG Oxygen Saturation 92.2 % (95-100); ABG PCO2 26.7 MM HG (35-48); ABG PH 7.301 (7.35-7.45); ABG PO2 73.3 MM HG (80-95); ABG TCO2 11.8 MMOL/L (23-27)
[2021-06-28] MEDS ORDERED: FUROSEMIDE 100 MG/10 ML VIAL IV ONE (15:36)
[2021-06-28] MEDS: ALBUMIN 5% 12.5 GM/250 ML VIAL IV PRN (15:46)
[2021-06-28] MEDS: DOBUTamine 500 MG/250 ML PREMIX IV PRN (15:50)
[2021-06-28] MEDS: SODIUM CHLORIDE 0.9% 1,000 ML IV SCH (16:15)
[2021-06-28] MEDS: FUROSEMIDE INJ 100 MG in SODIUM CHLORIDE 0.9% 90 ML IV SCH ×2 (17:20→21:41)
[2021-06-28] MEDS: methylPREDNISolone SOD SUC 40 MG/1 ML VIAL IV SCH (18:25)
[2021-06-28] MEDS ORDERED: AMIODARONE INJ 100 MG in DEXTROSE 5% 100 ML IV ONE (21:10)
[2021-06-28] MEDS: traMADol 50 MG TABLET PO PRN (22:40)
[2021-06-29] MEDS: INSULIN LISPRO 100 UNIT/ML SUBCUT SCH ×6 (00:16→21:16)
[2021-06-29] MEDS: ALBUTEROL/IPRATROPIUM 3 ML NEB RESP TX SCH ×7 (00:20→23:05)
[2021-06-29] MEDS: AMIODARONE INJ 450 MG in DEXTROSE 5% 241 ML IV SCH ×3 (00:20→16:00)
[2021-06-29] MEDS: FUROSEMIDE INJ 100 MG in SODIUM CHLORIDE 0.9% 90 ML IV SCH ×5 (03:06→20:36)
[2021-06-29 03:23] LABS: Basophils % 0.1 % (0.0-0.8); Hematocrit 32.4 VOL% (35.7-47.0); Hemoglobin 10.6 GM/DL (12.0-16.0); Immature Granulocytes % 1.5 %; Immature Granulocytes Absolute 0.19 #; Lymphocytes # 1.3 10*3/uL (1.4-4.0); Lymphocytes % 10.2 % (21.3-54.2); Mean Corpuscular HGB Conc 32.7 GM/DL (32-36); Mean Corpuscular Volume 90.5 FL (87-102); Mean Platelet Volume 11.5 FL (9.6-12.0); Monocytes % 5.7 % (1.7-12.7); NRBC # 0.11 10*3/uL; Neutrophils % 82.5 % (38.7-73.9); Platelet Count 109 T/CUMM (130-400); Red Blood Count 3.58 MC/CUMM (3.8-5.5); White Blood Count 12.9 T/CUMM (4-12)
[2021-06-29 03:43] LABS: Albumin 3.5 G/DL (3.4-5.0); Bilirubin,Direct 0.72 MG/DL (0.0-0.20); Bilirubin,Indirect 0.8 MG/DL (0.0-1.0); Bilirubin,Total 1.5 MG/DL (0.20-1.00); Calcium 8.6 MG/DL (8.5-10.1); Osmolality,Calculated 292.1 MOS/KG (273-304); Potassium 4.5 MMOL/L (3.5-5.1); Total Protein 6.1 G/DL (6.4-8.2)
[2021-06-29 03:52] LABS: Hypochromasia Slight; Microcytosis Slight; Platelet Estimate Decreased
[2021-06-29] MEDS: methylPREDNISolone SOD SUC 40 MG/1 ML VIAL IV SCH ×3 (03:52→18:02)
[2021-06-29] MEDS: ASCORBIC ACID 500 MG TABLET NG SCH ×2 (08:43→21:17)
[2021-06-29] MEDS: rOPINIRole 0.25 MG TABLET PO SCH ×4 (08:43→21:17)
[2021-06-29] MEDS: CITALOPRAM 20 MG TABLET PO SCH (08:43)
[2021-06-29] MEDS: APIXABAN 2.5 MG TABLET PO SCH ×2 (08:43→21:17)
[2021-06-29] MEDS: METOPROLOL TARTRATE 25 MG TABLET PO SCH (08:43)
[2021-06-29] MEDS: PREGABALIN 25 MG CAPSULE PO SCH ×2 (08:44→21:17)
[2021-06-29] MEDS: ASPIRIN CHEW 81 MG TABLET PO SCH (08:44)
[2021-06-29] MEDS: CHLORHEXIDINE 0.12% ORAL RINSE 60 ML BOTTLE SWISH/SPIT SCH ×2 (08:44→21:17)
[2021-06-29] MEDS: SODIUM CHLORIDE 0.9% 1,000 ML IV SCH (15:49)
[2021-06-29] MEDS: ALUMINUM/MAGNES/SIMETH MAX STR 30 ML UDCUP PO PRN (21:43)
[2021-06-29] MEDS: traMADol 50 MG TABLET PO PRN (21:43)
[2021-06-30] MEDS: INSULIN LISPRO 100 UNIT/ML SUBCUT SCH ×7 (00:35→20:26)
[2021-06-30] MEDS: methylPREDNISolone SOD SUC 40 MG/1 ML VIAL IV SCH ×3 (01:34→18:37)
[2021-06-30] MEDS: FUROSEMIDE INJ 100 MG in SODIUM CHLORIDE 0.9% 90 ML IV SCH ×8 (01:37→23:01)
[2021-06-30] MEDS: ALBUTEROL/IPRATROPIUM 3 ML NEB RESP TX SCH ×5 (02:50→20:02)
[2021-06-30] MEDS: AMIODARONE INJ 450 MG in DEXTROSE 5% 241 ML IV SCH (03:41)
[2021-06-30 04:25] LABS: Basophils % 0.1 % (0.0-0.8); Hematocrit 31.6 VOL% (35.7-47.0); Hemoglobin 10.5 GM/DL (12.0-16.0); Immature Granulocytes % 1.1 %; Immature Granulocytes Absolute 0.11 #; Lymphocytes # 0.8 10*3/uL (1.4-4.0); Lymphocytes % 7.7 % (21.3-54.2); Mean Corpuscular HGB Conc 33.2 GM/DL (32-36); Mean Corpuscular Volume 89.8 FL (87-102); Mean Platelet Volume 11.9 FL (9.6-12.0); Monocytes % 4.1 % (1.7-12.7); NRBC # 0.08 10*3/uL; Red Blood Count 3.52 MC/CUMM (3.8-5.5); Red Cell Distribution Width 15.1 % (9.3-17.3); White Blood Count 10.2 T/CUMM (4-12)
[2021-06-30 04:37] LABS: Calcium 8.3 MG/DL (8.5-10.1); Osmolality,Calculated 299.8 MOS/KG (273-304); Potassium 3.6 MMOL/L (3.5-5.1)
[2021-06-30 04:40] LABS: Platelet Count 86 T/CUMM (130-400)
[2021-06-30 04:48] LABS: Hypochromasia 1+; Microcytosis 1+; Platelet Estimate Decreased
[2021-06-30] MEDS: SODIUM CHLORIDE 0.9% 1,000 ML IV SCH ×3 (07:10→23:43)
[2021-06-30] MEDS: rOPINIRole 0.25 MG TABLET PO SCH ×4 (09:36→20:24)
[2021-06-30] MEDS: ASCORBIC ACID 500 MG TABLET NG SCH ×2 (09:37→20:24)
[2021-06-30] MEDS: CITALOPRAM 20 MG TABLET PO SCH (09:37)
[2021-06-30] MEDS: ASPIRIN CHEW 81 MG TABLET PO SCH (09:37)
[2021-06-30] MEDS: APIXABAN 2.5 MG TABLET PO SCH ×2 (09:37→20:23)
[2021-06-30] MEDS: AMIODARONE 200 MG TABLET PO SCH ×2 (09:37→20:23)
[2021-06-30] MEDS: PREGABALIN 25 MG CAPSULE PO SCH ×2 (09:37→20:24)
[2021-06-30] MEDS: CHLORHEXIDINE 0.12% ORAL RINSE 60 ML BOTTLE SWISH/SPIT SCH ×2 (11:41→21:00)
[2021-06-30] MEDS: FUROSEMIDE 40 MG/4 ML VIAL IV SCH (12:43)
[2021-06-30] MEDS: traMADol 50 MG TABLET PO PRN (20:25)
[2021-06-30] MEDS: ALUMINUM/MAGNES/SIMETH MAX STR 30 ML UDCUP PO PRN (20:34)
[2021-06-30] MEDS: DOBUTamine 500 MG/250 ML PREMIX IV PRN (21:01)
[2021-07-01] MEDS: traMADol 50 MG TABLET PO PRN (02:00)
[2021-07-01] MEDS: NEOMYCIN/POLYMYXIN/HC OTIC SOLN 10 ML BOTTLE BOTH EARS SCH ×3 (02:00→16:02)
[2021-07-01] MEDS: SODIUM CHLORIDE 0.9% 1,000 ML IV SCH ×2 (02:26→16:29)
[2021-07-01] MEDS: methylPREDNISolone SOD SUC 40 MG/1 ML VIAL IV SCH ×3 (02:26→17:42)
[2021-07-01] MEDS: ALBUTEROL/IPRATROPIUM 3 ML NEB RESP TX SCH ×7 (03:12→23:35)
[2021-07-01 05:04] LABS: ABG Base Excess -1.1 MMOL/L (-2.5-2.5); ABG HCO3 23.5 MMOL/L (20-26); ABG Oxygen Saturation 97.6 % (95-100); ABG PCO2 34.8 MM HG (35-48); ABG PH 7.424 (7.35-7.45); ABG PO2 98.5 MM HG (80-95); ABG TCO2 20.6 MMOL/L (23-27)
[2021-07-01] MEDS: FUROSEMIDE INJ 100 MG in SODIUM CHLORIDE 0.9% 90 ML IV SCH (05:14)
[2021-07-01 05:42] LABS: Basophils % 0.1 % (0.0-0.8); Hematocrit 30.4 VOL% (35.7-47.0); Hemoglobin 10.3 GM/DL (12.0-16.0); Immature Granulocytes % 1.2 %; Immature Granulocytes Absolute 0.14 #; Lymphocytes # 0.5 10*3/uL (1.4-4.0); Lymphocytes % 4.5 % (21.3-54.2); Mean Corpuscular HGB Conc 33.9 GM/DL (32-36); Mean Corpuscular Volume 89.7 FL (87-102); Mean Platelet Volume 11.9 FL (9.6-12.0); Monocytes % 3.3 % (1.7-12.7); NRBC # 0.06 10*3/uL; Neutrophils % 90.9 % (38.7-73.9); Platelet Count 78 T/CUMM (130-400); Red Blood Count 3.39 MC/CUMM (3.8-5.5); White Blood Count 11.3 T/CUMM (4-12)
[2021-07-01 06:01] LABS: Hypochromasia Slight; Lymphocytes 3 % (20-55); Microcytosis Slight; Nucleated Red Blood Cells 2 (0-5); Platelet Estimate Decreased; Segmented Neutrophils 93 % (50-85); Total Cells Counted 100
[2021-07-01 06:02] LABS: Calcium 8.1 MG/DL (8.5-10.1); Potassium 3.2 MMOL/L (3.5-5.1)
[2021-07-01 06:05] LABS: Albumin 3.3 G/DL (3.4-5.0); Bilirubin,Direct 0.72 MG/DL (0.0-0.20); Bilirubin,Total 1.7 MG/DL (0.20-1.00); Calcium 8.1 MG/DL (8.5-10.1); Potassium 3.3 MMOL/L (3.5-5.1); Total Protein 5.6 G/DL (6.4-8.2)
[2021-07-01] MEDS ORDERED: CLORAZEPATE 3.75 MG TABLET PO ONE (06:43)
[2021-07-01] MEDS: POTASSIUM CHLORIDE RIDER 20 MEQ/100 ML PREMIX IV PRN (07:20)
[2021-07-01] MEDS: FUROSEMIDE 40 MG/4 ML VIAL IV SCH (08:51)
[2021-07-01] MEDS: INSULIN LISPRO 100 UNIT/ML SUBCUT SCH ×4 (08:51→20:22)
[2021-07-01] MEDS: APIXABAN 2.5 MG TABLET PO SCH ×2 (08:52→20:21)
[2021-07-01] MEDS: rOPINIRole 0.25 MG TABLET PO SCH ×4 (08:52→20:21)
[2021-07-01] MEDS: PREGABALIN 25 MG CAPSULE PO SCH ×2 (08:52→20:21)
[2021-07-01] MEDS: CITALOPRAM 20 MG TABLET PO SCH (08:52)
[2021-07-01] MEDS: AMIODARONE 200 MG TABLET PO SCH ×2 (08:52→20:21)
[2021-07-01] MEDS: ASCORBIC ACID 500 MG TABLET NG SCH ×2 (08:52→20:21)
[2021-07-01] MEDS: ASPIRIN CHEW 81 MG TABLET PO SCH (08:52)
[2021-07-01] MEDS: CHLORHEXIDINE 0.12% ORAL RINSE 60 ML BOTTLE SWISH/SPIT SCH ×2 (08:53→20:25)
[2021-07-01] MEDS ORDERED: METOPROLOL TARTRATE 5 MG/5 ML VIAL IV ONE (08:54)
[2021-07-01] MEDS ORDERED: NEOMYCIN/POLYMYXIN/HC OTIC SOLN 10 ML BOTTLE BOTH EARS SCH (09:00)
[2021-07-01 09:51] LABS: INR 1.5; PT Patient Result 16.4 SECS (10.5-12.0); Partial Thromboplastin Time 29.4 SECS (23.8-32.1)
[2021-07-01] MEDS ORDERED: METOPROLOL TARTRATE 25 MG TABLET PO ONE (12:00)
[2021-07-01] MEDS ORDERED: DILTIAZEM 50 MG/10 ML VIAL IV ONE (12:10)
[2021-07-01] MEDS ORDERED: DILTIAZEM 25 MG/5 ML VIAL IV ONE (12:23)
[2021-07-01] MEDS: DILTIAZEM INJ 100 MG in SODIUM CHLORIDE 0.9% 100 ML IV SCH ×2 (12:30→19:22)
[2021-07-01] MEDS: ALUMINUM/MAGNES/SIMETH MAX STR 30 ML UDCUP PO PRN (13:06)
[2021-07-01] MEDS ORDERED: HYDROCORTISONE 25 MG SUPP RECTAL PRN (15:04)
[2021-07-01] MEDS: ZALEPLON 5 MG CAPSULE PO SCH (20:21)
[2021-07-01] MEDS: METOPROLOL TARTRATE 25 MG TABLET PO SCH (20:23)
[2021-07-01] MEDS: CLORAZEPATE 3.75 MG TABLET PO PRN (22:04)
[2021-07-01] MEDS: CIPROFLOXACIN/DEXAMETHASONE OTIC SUSP 7.5 ML BOTTLE BOTH EARS SCH (22:29)
[2021-07-02] MEDS: methylPREDNISolone SOD SUC 40 MG/1 ML VIAL IV SCH ×3 (02:34→17:19)
[2021-07-02] MEDS: DILTIAZEM INJ 100 MG in SODIUM CHLORIDE 0.9% 100 ML IV SCH ×3 (02:49→22:38)
[2021-07-02] MEDS: ALBUTEROL/IPRATROPIUM 3 ML NEB RESP TX SCH ×6 (03:08→23:10)
[2021-07-02 04:47] LABS: Calcium 8.6 MG/DL (8.5-10.1); Osmolality,Calculated 305.1 MOS/KG (273-304); Potassium 4.2 MMOL/L (3.5-5.1)
[2021-07-02 06:44] LABS: Basophils # 0.1 10*3/uL (0.0-0.2); Basophils % 0.2 % (0.0-0.8); Eosinophils % 0.1 % (0.00-10.9); Hematocrit 32.2 VOL% (35.7-47.0); Hemoglobin 10.5 GM/DL (12.0-16.0); Immature Granulocytes % 1.2 %; Immature Granulocytes Absolute 0.39 #; Mean Corpuscular HGB Conc 32.6 GM/DL (32-36); Mean Corpuscular Volume 92.5 FL (87-102); Mean Platelet Volume 11.8 FL (9.6-12.0); Monocytes % 3.5 % (1.7-12.7); NRBC # 0.36 10*3/uL; Red Blood Count 3.48 MC/CUMM (3.8-5.5); Red Cell Distribution Width 16.8 % (9.3-17.3)
[2021-07-02 06:45] LABS: White Blood Count 32.9 T/CUMM (4-12)
[2021-07-02 06:46] LABS: Platelet Count 142 T/CUMM (130-400)
[2021-07-02 07:04] LABS: Band Neutrophils 1 % (0-10); Lymphocytes 3 % (20-55); Nucleated Red Blood Cells 1 (0-5); Platelet Estimate Normal; Segmented Neutrophils 92 % (50-85); Total Cells Counted 100
[2021-07-02 08:14] LABS: Basophils # 0.1 10*3/uL (0.0-0.2); Basophils % 0.2 % (0.0-0.8); Hematocrit 32.4 VOL% (35.7-47.0); Hemoglobin 10.5 GM/DL (12.0-16.0); Immature Granulocytes Absolute 0.38 #; Lymphocytes % 2.8 % (21.3-54.2); Mean Corpuscular HGB Conc 32.4 GM/DL (32-36); Mean Corpuscular Volume 92.3 FL (87-102); Mean Platelet Volume 11.4 FL (9.6-12.0); Monocytes % 2.6 % (1.7-12.7); NRBC # 0.33 10*3/uL; Neutrophils % 93.4 % (38.7-73.9); Platelet Count 145 T/CUMM (130-400); Red Blood Count 3.51 MC/CUMM (3.8-5.5); Red Cell Distribution Width 17.1 % (9.3-17.3); White Blood Count 36.3 T/CUMM (4-12)
[2021-07-02] MEDS ORDERED: METOCLOPRAMIDE 10 MG/2 ML VIAL IV ONE (08:30)
[2021-07-02 08:47] LABS: Band Neutrophils 1 % (0-10); Macrocytosis Slight; Platelet Estimate Adequate; Polychromasia Slight; Segmented Neutrophils 98 % (50-85); Total Cells Counted 100
[2021-07-02] MEDS: PANTOPRAZOLE 40 MG TABLET PO SCH (09:17)
[2021-07-02] MEDS: rOPINIRole 0.25 MG TABLET PO SCH ×4 (09:17→20:43)
[2021-07-02] MEDS: AMIODARONE 200 MG TABLET PO SCH ×2 (09:17→20:43)
[2021-07-02] MEDS: PREGABALIN 25 MG CAPSULE PO SCH ×2 (09:17→20:43)
[2021-07-02] MEDS: APIXABAN 2.5 MG TABLET PO SCH ×2 (09:17→20:43)
[2021-07-02] MEDS: ASCORBIC ACID 500 MG TABLET NG SCH ×2 (09:18→20:43)
[2021-07-02] MEDS: CITALOPRAM 20 MG TABLET PO SCH (09:18)
[2021-07-02] MEDS: ASPIRIN CHEW 81 MG TABLET PO SCH (09:18)
[2021-07-02] MEDS: PIPERACILLIN/TAZOBACTAM 3,375 MG in SODIUM CHLORIDE 0.9% 100 ML IV SCH ×2 (09:18→20:45)
[2021-07-02] MEDS: ALBUMIN 25% 25 GM/100 ML VIAL IV SCH ×2 (09:19→16:31)
[2021-07-02] MEDS: CHLORHEXIDINE 0.12% ORAL RINSE 60 ML BOTTLE SWISH/SPIT SCH ×2 (09:19→20:43)
[2021-07-02] MEDS: METOPROLOL TARTRATE 25 MG TABLET PO SCH ×2 (09:20→20:44)
[2021-07-02] MEDS: CIPROFLOXACIN/DEXAMETHASONE OTIC SUSP 7.5 ML BOTTLE BOTH EARS SCH ×2 (09:23→20:44)
[2021-07-02 09:37] LABS: ABG Base Excess -2.5 MMOL/L (-2.5-2.5); ABG HCO3 22.2 MMOL/L (20-26); ABG Oxygen Saturation 93.6 % (95-100); ABG PCO2 30.3 MM HG (35-48); ABG PH 7.441 (7.35-7.45); ABG PO2 70.3 MM HG (80-95); ABG TCO2 18.2 MMOL/L (23-27)
[2021-07-02] MEDS: INSULIN LISPRO 100 UNIT/ML SUBCUT SCH ×4 (09:37→20:43)
[2021-07-02 09:40] LABS: Amorphous Crystals,Urine Few /HPF (Few); Bacteria,Urine Occasional /HPF (Few); Bilirubin,Urine Negative (Negative); Blood, Urine Moderate mg/dL (Negative); Calcium Oxalate Crystals,Urine Occasional /HPF (Few); Glucose,Urine (UA) Negative (Negative); Hyaline Casts,Urine 54 /LPF (0-3); Ketones,Urine Negative (Negative); Mucus,Urine Occasional /LPF (Occasional); Nitrite,Urine Negative (Negative); Protein,Urine Negative; RBC,Urine 20 /HPF (0-4); Urine Appearance CLOUDY (Clear); Urine Color Yellow (Yellow); Urine Specific Gravity 1.013 (1.001-1.035); Urine Urobilinogen < 2.0 EU/DL (0.2-1.0)
[2021-07-02] MEDS: ALUMINUM/MAGNES/SIMETH MAX STR 30 ML UDCUP PO PRN (15:02)
[2021-07-02] MEDS: DESITIN 4OZ/NYSTATIN 15 GRAM MIXTURE PASTE TOP SCH ×2 (16:32→20:44)
[2021-07-02] MEDS: ZALEPLON 5 MG CAPSULE PO SCH (20:44)
[2021-07-03] MEDS: ALBUMIN 25% 25 GM/100 ML VIAL IV SCH (00:48)
[2021-07-03] MEDS: methylPREDNISolone SOD SUC 40 MG/1 ML VIAL IV SCH ×3 (02:37→17:00)
[2021-07-03] MEDS: ALBUTEROL/IPRATROPIUM 3 ML NEB RESP TX SCH ×5 (03:14→19:44)
[2021-07-03] MEDS ORDERED: HEPARIN/NACL 0.9% 2 UNITS/ML 1,000 UNIT/500 ML BAG IV ONE (03:36)
[2021-07-03 05:01] LABS: Basophils # 0.1 10*3/uL (0.0-0.2); Basophils % 0.2 % (0.0-0.8); Hematocrit 27.5 VOL% (35.7-47.0); Hemoglobin 8.9 GM/DL (12.0-16.0); Immature Granulocytes % 0.9 %; Lymphocytes # 0.9 10*3/uL (1.4-4.0); Lymphocytes % 2.7 % (21.3-54.2); Mean Corpuscular HGB Conc 32.4 GM/DL (32-36); Mean Corpuscular Volume 93.2 FL (87-102); Mean Platelet Volume 11.8 FL (9.6-12.0); Monocytes % 1.4 % (1.7-12.7); Neutrophils % 94.8 % (38.7-73.9); Platelet Count 84 T/CUMM (130-400); Red Blood Count 2.95 MC/CUMM (3.8-5.5); Red Cell Distribution Width 16.6 % (9.3-17.3); White Blood Count 31.7 T/CUMM (4-12)
[2021-07-03 05:16] LABS: Albumin 3.7 G/DL (3.4-5.0); Bilirubin,Total 2.6 MG/DL (0.20-1.00); Calcium 8.5 MG/DL (8.5-10.1); Osmolality,Calculated 300.4 MOS/KG (273-304); Potassium 4.6 MMOL/L (3.5-5.1)
[2021-07-03 05:22] LABS: Lymphocytes 3 % (20-55); Segmented Neutrophils 95 % (50-85); Total Cells Counted 100
[2021-07-03 05:23] LABS: Hypochromasia 1+; Microcytosis 1+; Platelet Estimate Decreased
[2021-07-03] MEDS: INSULIN LISPRO 100 UNIT/ML SUBCUT SCH ×4 (08:55→21:13)
[2021-07-03] MEDS: AMIODARONE 200 MG TABLET PO SCH ×2 (09:00→20:57)
[2021-07-03] MEDS: rOPINIRole 0.25 MG TABLET PO SCH ×4 (09:00→20:56)
[2021-07-03] MEDS: PANTOPRAZOLE 40 MG TABLET PO SCH (09:00)
[2021-07-03] MEDS: ASPIRIN CHEW 81 MG TABLET PO SCH (09:00)
[2021-07-03] MEDS: ASCORBIC ACID 500 MG TABLET NG SCH ×2 (09:00→20:57)
[2021-07-03] MEDS: CITALOPRAM 20 MG TABLET PO SCH (09:00)
[2021-07-03] MEDS: PREGABALIN 25 MG CAPSULE PO SCH ×2 (09:00→20:56)
[2021-07-03] MEDS: METOPROLOL TARTRATE 25 MG TABLET PO SCH ×2 (09:00→20:56)
[2021-07-03] MEDS: APIXABAN 2.5 MG TABLET PO SCH ×2 (09:00→20:57)
[2021-07-03] MEDS: CIPROFLOXACIN/DEXAMETHASONE OTIC SUSP 7.5 ML BOTTLE BOTH EARS SCH ×2 (09:05→20:57)
[2021-07-03] MEDS: PIPERACILLIN/TAZOBACTAM 3,375 MG in SODIUM CHLORIDE 0.9% 100 ML IV SCH ×2 (09:05→22:05)
[2021-07-03] MEDS: CHLORHEXIDINE 0.12% ORAL RINSE 60 ML BOTTLE SWISH/SPIT SCH ×2 (09:20→21:13)
[2021-07-03] MEDS: DESITIN 4OZ/NYSTATIN 15 GRAM MIXTURE PASTE TOP SCH ×2 (09:45→21:13)
[2021-07-03] MEDS: FUROSEMIDE 40 MG/4 ML VIAL IV SCH (09:50)
[2021-07-03] MEDS: DILTIAZEM INJ 100 MG in SODIUM CHLORIDE 0.9% 100 ML IV SCH (12:30)
[2021-07-03] MEDS: ZALEPLON 5 MG CAPSULE PO SCH (21:14)
[2021-07-04] MEDS: methylPREDNISolone SOD SUC 40 MG/1 ML VIAL IV SCH ×3 (02:50→21:30)
[2021-07-04] MEDS: CLORAZEPATE 3.75 MG TABLET PO PRN ×3 (04:10→16:51)
[2021-07-04 04:48] LABS: Basophils % 0.1 % (0.0-0.8); Hematocrit 29.1 VOL% (35.7-47.0); Hemoglobin 9.4 GM/DL (12.0-16.0); Immature Granulocytes % 1.1 %; Immature Granulocytes Absolute 0.33 #; Lymphocytes # 0.9 10*3/uL (1.4-4.0); Lymphocytes % 2.8 % (21.3-54.2); Mean Corpuscular HGB Conc 32.3 GM/DL (32-36); Mean Corpuscular Volume 93.6 FL (87-102); Mean Platelet Volume 11.5 FL (9.6-12.0); NRBC # 0.12 10*3/uL; Platelet Count 91 T/CUMM (130-400); Red Blood Count 3.11 MC/CUMM (3.8-5.5); White Blood Count 30.6 T/CUMM (4-12)
[2021-07-04 05:08] LABS: Albumin 3.3 G/DL (3.4-5.0); Bilirubin,Total 3.2 MG/DL (0.20-1.00); Calcium 8.7 MG/DL (8.5-10.1); Osmolality,Calculated 299.7 MOS/KG (273-304); Potassium 4.6 MMOL/L (3.5-5.1); Total Protein 5.8 G/DL (6.4-8.2)
[2021-07-04 05:17] LABS: Hypochromasia Slight; Lymphocytes 4 % (20-55); Microcytosis Slight; Platelet Estimate Decreased; Segmented Neutrophils 95 % (50-85); Total Cells Counted 100
[2021-07-04 05:35] LABS: ABG Base Excess -3.7 MMOL/L (-2.5-2.5); ABG HCO3 21.3 MMOL/L (20-26); ABG Oxygen Saturation 98.6 % (95-100); ABG PCO2 33.9 MM HG (35-48); ABG PH 7.392 (7.35-7.45)
[2021-07-04] MEDS ORDERED: FUROSEMIDE 40 MG/4 ML VIAL IV ONE (06:05)
[2021-07-04] MEDS: ALBUTEROL/IPRATROPIUM 3 ML NEB RESP TX SCH ×7 (06:11→22:17)
[2021-07-04 07:08] LABS: Bacteria,Urine Occasional /HPF (Few); Bilirubin,Urine Negative (Negative); Blood, Urine Negative (Negative); Glucose,Urine (UA) Negative (Negative); Hyaline Casts,Urine 12 /LPF (0-3); Ketones,Urine Negative (Negative); Mucus,Urine Occasional /LPF (Occasional); Nitrite,Urine Negative (Negative); Protein,Urine Negative; RBC,Urine 2 /HPF (0-4); Squamous Epithelial Cell,Urine Occasional /HPF (0-10); Urine Appearance CLEAR (Clear); Urine Color Yellow (Yellow); Urine Specific Gravity 1.013 (1.001-1.035); Urine Urobilinogen < 2.0 EU/DL (0.2-1.0)
[2021-07-04] MEDS: METOPROLOL TARTRATE 25 MG TABLET PO SCH ×2 (08:11→21:33)
[2021-07-04] MEDS: PANTOPRAZOLE 40 MG TABLET PO SCH (08:12)
[2021-07-04] MEDS: AMIODARONE 200 MG TABLET PO SCH ×2 (08:12→21:33)
[2021-07-04] MEDS: ASPIRIN CHEW 81 MG TABLET PO SCH (08:12)
[2021-07-04] MEDS: ASCORBIC ACID 500 MG TABLET NG SCH ×2 (08:12→21:34)
[2021-07-04] MEDS: CITALOPRAM 20 MG TABLET PO SCH (08:13)
[2021-07-04] MEDS: PREGABALIN 25 MG CAPSULE PO SCH ×2 (08:13→21:33)
[2021-07-04] MEDS: APIXABAN 2.5 MG TABLET PO SCH ×2 (08:13→21:33)
[2021-07-04] MEDS: PIPERACILLIN/TAZOBACTAM 3,375 MG in SODIUM CHLORIDE 0.9% 100 ML IV SCH ×2 (08:14→22:15)
[2021-07-04] MEDS: rOPINIRole 0.25 MG TABLET PO SCH ×4 (08:15→21:34)
[2021-07-04] MEDS: CIPROFLOXACIN/DEXAMETHASONE OTIC SUSP 7.5 ML BOTTLE BOTH EARS SCH ×2 (08:20→21:33)
[2021-07-04] MEDS: CHLORHEXIDINE 0.12% ORAL RINSE 60 ML BOTTLE SWISH/SPIT SCH ×2 (08:21→21:33)
[2021-07-04] MEDS: INSULIN LISPRO 100 UNIT/ML SUBCUT SCH ×4 (08:43→21:33)
[2021-07-04] MEDS: DILTIAZEM INJ 100 MG in SODIUM CHLORIDE 0.9% 100 ML IV SCH (14:36)
[2021-07-04] MEDS: DESITIN 4OZ/NYSTATIN 15 GRAM MIXTURE PASTE TOP SCH ×2 (17:17→22:10)
[2021-07-04] MEDS: FUROSEMIDE 40 MG/4 ML VIAL IV SCH (17:18)
[2021-07-04] MEDS: ZALEPLON 5 MG CAPSULE PO SCH (21:34)
[2021-07-05] MEDS: ALBUTEROL/IPRATROPIUM 3 ML NEB RESP TX SCH ×6 (03:00→23:30)
[2021-07-05 04:25] LABS: Basophils % 0.1 % (0.0-0.8); Hematocrit 29.6 VOL% (35.7-47.0); Hemoglobin 9.6 GM/DL (12.0-16.0); Immature Granulocytes Absolute 0.23 #; Lymphocytes # 0.5 10*3/uL (1.4-4.0); Lymphocytes % 2.4 % (21.3-54.2); Mean Corpuscular HGB Conc 32.4 GM/DL (32-36); Mean Corpuscular Volume 93.1 FL (87-102); Mean Platelet Volume 12.3 FL (9.6-12.0); Monocytes % 2.5 % (1.7-12.7); NRBC # 0.22 10*3/uL; Platelet Count 102 T/CUMM (130-400); Red Blood Count 3.18 MC/CUMM (3.8-5.5); White Blood Count 22.6 T/CUMM (4-12)
[2021-07-05] MEDS: CLORAZEPATE 3.75 MG TABLET PO PRN (04:30)
[2021-07-05 04:32] LABS: Calcium 8.5 MG/DL (8.5-10.1); Osmolality,Calculated 304.4 MOS/KG (273-304); Potassium 4.2 MMOL/L (3.5-5.1)
[2021-07-05 04:56] LABS: Hypochromasia Slight; Lymphocytes 2 % (20-55); Nucleated Red Blood Cells 1 (0-5); Platelet Estimate Adequate; Segmented Neutrophils 98 % (50-85); Total Cells Counted 100
[2021-07-05] MEDS: ASPIRIN CHEW 81 MG TABLET PO SCH (09:30)
[2021-07-05] MEDS: rOPINIRole 0.25 MG TABLET PO SCH ×4 (09:30→20:59)
[2021-07-05] MEDS: ASCORBIC ACID 500 MG TABLET NG SCH ×2 (09:30→20:59)
[2021-07-05] MEDS: METOPROLOL TARTRATE 25 MG TABLET PO SCH ×2 (09:30→21:31)
[2021-07-05] MEDS: FUROSEMIDE 40 MG/4 ML VIAL IV SCH ×2 (09:30→15:48)
[2021-07-05] MEDS: PREGABALIN 25 MG CAPSULE PO SCH ×2 (09:30→20:59)
[2021-07-05] MEDS: AMIODARONE 200 MG TABLET PO SCH ×2 (09:31→20:59)
[2021-07-05] MEDS: PANTOPRAZOLE 40 MG TABLET PO SCH (09:31)
[2021-07-05] MEDS: methylPREDNISolone SOD SUC 40 MG/1 ML VIAL IV SCH ×2 (09:31→21:01)
[2021-07-05] MEDS: ALUMINUM/MAGNES/SIMETH MAX STR 30 ML UDCUP PO PRN (09:31)
[2021-07-05] MEDS: CITALOPRAM 20 MG TABLET PO SCH (09:31)
[2021-07-05] MEDS: CHLORHEXIDINE 0.12% ORAL RINSE 60 ML BOTTLE SWISH/SPIT SCH ×2 (09:32→21:35)
[2021-07-05] MEDS: APIXABAN 2.5 MG TABLET PO SCH ×2 (09:32→20:59)
[2021-07-05] MEDS: DESITIN 4OZ/NYSTATIN 15 GRAM MIXTURE PASTE TOP SCH ×2 (09:32→21:35)
[2021-07-05] MEDS: PIPERACILLIN/TAZOBACTAM 3,375 MG in SODIUM CHLORIDE 0.9% 100 ML IV SCH ×2 (09:32→21:00)
[2021-07-05] MEDS: INSULIN LISPRO 100 UNIT/ML SUBCUT SCH ×4 (10:20→21:29)
[2021-07-05] MEDS: DOBUTamine 500 MG/250 ML PREMIX IV SCH (10:36)
[2021-07-05] MEDS: DILTIAZEM INJ 100 MG in SODIUM CHLORIDE 0.9% 100 ML IV SCH (14:45)
[2021-07-05] MEDS: metOLazone 5 MG TABLET PO SCH (15:48)
[2021-07-05] MEDS: CIPROFLOXACIN/DEXAMETHASONE OTIC SUSP 7.5 ML BOTTLE BOTH EARS SCH ×2 (15:49→21:41)
[2021-07-05] MEDS: ZALEPLON 5 MG CAPSULE PO SCH (20:59)
[2021-07-06] MEDS: CLORAZEPATE 3.75 MG TABLET PO PRN ×2 (03:17→21:37)
[2021-07-06] MEDS: ALBUTEROL/IPRATROPIUM 3 ML NEB RESP TX SCH ×6 (03:18→23:55)
[2021-07-06 03:35] LABS: ABG Base Excess 0.4 MMOL/L (-2.5-2.5); ABG HCO3 24.7 MMOL/L (20-26); ABG Oxygen Saturation 94.1 % (95-100); ABG PH 7.429 (7.35-7.45); ABG PO2 71.1 MM HG (80-95); ABG TCO2 22.6 MMOL/L (23-27); Allen Test Positive; Pt O2 Delivery Device Other
[2021-07-06 04:24] LABS: Hematocrit 26.6 VOL% (35.7-47.0); Hemoglobin 8.5 GM/DL (12.0-16.0); Immature Granulocytes % 0.8 %; Immature Granulocytes Absolute 0.09 #; Lymphocytes # 0.2 10*3/uL (1.4-4.0); Lymphocytes % 2.2 % (21.3-54.2); Mean Corpuscular Volume 92.7 FL (87-102); Mean Platelet Volume 11.8 FL (9.6-12.0); Monocytes % 2.8 % (1.7-12.7); Neutrophils % 94.2 % (38.7-73.9); Platelet Count 55 T/CUMM (130-400); Red Blood Count 2.87 MC/CUMM (3.8-5.5); Red Cell Distribution Width 16.4 % (9.3-17.3); White Blood Count 11.1 T/CUMM (4-12)
[2021-07-06 04:45] LABS: Calcium 8.2 MG/DL (8.5-10.1); Osmolality,Calculated 314.1 MOS/KG (273-304); Potassium 3.4 MMOL/L (3.5-5.1)
[2021-07-06 04:48] LABS: Band Neutrophils 1 % (0-10); Hypochromasia 1+; Lymphocytes 2 % (20-55); Metamyelocytes 1 %; Nucleated Red Blood Cells 1 (0-5); Platelet Estimate Decreased; Segmented Neutrophils 94 % (50-85); Total Cells Counted 100
[2021-07-06] MEDS: POTASSIUM CHLORIDE RIDER 20 MEQ/100 ML PREMIX IV PRN (05:45)
[2021-07-06 06:34] LABS: Albumin 2.9 G/DL (3.4-5.0); Bilirubin,Direct 1.35 MG/DL (0.0-0.20); Bilirubin,Indirect 1.3 MG/DL (0.0-1.0); Bilirubin,Total 2.6 MG/DL (0.20-1.00); Total Protein 5.5 G/DL (6.4-8.2)
[2021-07-06] MEDS ORDERED: POTASSIUM CHLORIDE 20 MEQ TABLET PO ONE (08:28)
[2021-07-06] MEDS: FUROSEMIDE 40 MG/4 ML VIAL IV SCH ×2 (09:00→16:45)
[2021-07-06] MEDS: ALUMINUM/MAGNES/SIMETH MAX STR 30 ML UDCUP PO PRN ×3 (09:00→18:10)
[2021-07-06] MEDS: INSULIN LISPRO 100 UNIT/ML SUBCUT SCH ×4 (09:00→20:20)
[2021-07-06] MEDS: rOPINIRole 0.25 MG TABLET PO SCH ×5 (09:01→20:45)
[2021-07-06] MEDS: APIXABAN 2.5 MG TABLET PO SCH ×2 (09:01→20:44)
[2021-07-06] MEDS: methylPREDNISolone SOD SUC 40 MG/1 ML VIAL IV SCH ×2 (09:01→20:23)
[2021-07-06] MEDS: metOLazone 5 MG TABLET PO SCH (09:01)
[2021-07-06] MEDS: AMIODARONE 200 MG TABLET PO SCH ×2 (09:02→20:44)
[2021-07-06] MEDS: ASPIRIN CHEW 81 MG TABLET PO SCH (09:02)
[2021-07-06] MEDS: PANTOPRAZOLE 40 MG TABLET PO SCH ×2 (09:02→10:08)
[2021-07-06] MEDS: ASCORBIC ACID 500 MG TABLET NG SCH ×3 (09:02→20:46)
[2021-07-06] MEDS: METOPROLOL TARTRATE 25 MG TABLET PO SCH ×2 (09:02→20:43)
[2021-07-06] MEDS: CITALOPRAM 20 MG TABLET PO SCH ×2 (09:02→10:10)
[2021-07-06] MEDS: CHLORHEXIDINE 0.12% ORAL RINSE 60 ML BOTTLE SWISH/SPIT SCH ×2 (09:03→20:48)
[2021-07-06] MEDS: CIPROFLOXACIN/DEXAMETHASONE OTIC SUSP 7.5 ML BOTTLE BOTH EARS SCH ×2 (09:03→20:31)
[2021-07-06] MEDS: DESITIN 4OZ/NYSTATIN 15 GRAM MIXTURE PASTE TOP SCH ×2 (09:07→20:46)
[2021-07-06] MEDS: MEROPENEM 500 MG in SODIUM CHLORIDE 0.9% 100 ML IV SCH ×2 (09:07→20:26)
[2021-07-06] MEDS: DOBUTamine 500 MG/250 ML PREMIX IV SCH (10:07)
[2021-07-06] MEDS ORDERED: DILTIAZEM 50 MG/10 ML VIAL IV ONE (10:13)
[2021-07-06] MEDS: DILTIAZEM INJ 100 MG in SODIUM CHLORIDE 0.9% 100 ML IV SCH ×3 (10:30→19:34)
[2021-07-06] MEDS: ZALEPLON 5 MG CAPSULE PO SCH (20:42)
[2021-07-07] MEDS: ALUMINUM/MAGNES/SIMETH MAX STR 30 ML UDCUP PO PRN ×2 (00:35→21:44)
[2021-07-07] MEDS: ALBUTEROL/IPRATROPIUM 3 ML NEB RESP TX SCH ×5 (03:08→19:50)
[2021-07-07] MEDS: DILTIAZEM INJ 100 MG in SODIUM CHLORIDE 0.9% 100 ML IV SCH ×2 (05:10→12:38)
[2021-07-07 05:36] LABS: Basophils % 0.1 % (0.0-0.8); Hematocrit 27.1 VOL% (35.7-47.0); Hemoglobin 8.9 GM/DL (12.0-16.0); Immature Granulocytes % 0.8 %; Immature Granulocytes Absolute 0.12 #; Lymphocytes # 0.2 10*3/uL (1.4-4.0); Lymphocytes % 1.3 % (21.3-54.2); Mean Corpuscular HGB Conc 32.8 GM/DL (32-36); Mean Corpuscular Volume 90.9 FL (87-102); Mean Platelet Volume 12.4 FL (9.6-12.0); Monocytes % 2.7 % (1.7-12.7); NRBC # 0.16 10*3/uL; Neutrophils % 95.1 % (38.7-73.9); Platelet Count 62 T/CUMM (130-400); Red Blood Count 2.98 MC/CUMM (3.8-5.5); Red Cell Distribution Width 16.5 % (9.3-17.3); White Blood Count 15.8 T/CUMM (4-12)
[2021-07-07 05:42] LABS: Calcium 8.4 MG/DL (8.5-10.1); Osmolality,Calculated 319.1 MOS/KG (273-304); Potassium 3.6 MMOL/L (3.5-5.1)
[2021-07-07 05:54] VITALS: BP 94/48
[2021-07-07 06:16] LABS: Band Neutrophils 3 % (0-10); Lymphocytes 1 % (20-55); Macrocytosis 1+; Nucleated Red Blood Cells 1 (0-5); Platelet Estimate Decreased; Segmented Neutrophils 93 % (50-85); Target Cells Few; Total Cells Counted 100
[2021-07-07 06:17] LABS: Anisocytosis 3+
[2021-07-07] MEDS ORDERED: LOPERAMIDE 2 MG CAPSULE PO ONE (08:20)
[2021-07-07] MEDS: ASPIRIN CHEW 81 MG TABLET PO SCH (08:55)
[2021-07-07] MEDS: ASCORBIC ACID 500 MG TABLET NG SCH ×2 (08:56→21:11)
[2021-07-07] MEDS ORDERED: CLORAZEPATE 3.75 MG TABLET PO ONE (08:58)
[2021-07-07] MEDS: rOPINIRole 0.25 MG TABLET PO SCH ×4 (08:58→21:10)
[2021-07-07] MEDS: AMIODARONE 200 MG TABLET PO SCH ×2 (08:59→21:11)
[2021-07-07] MEDS: METOPROLOL TARTRATE 25 MG TABLET PO SCH (09:00)
[2021-07-07] MEDS: PANTOPRAZOLE 40 MG TABLET PO SCH (09:00)
[2021-07-07] MEDS: DESITIN 4OZ/NYSTATIN 15 GRAM MIXTURE PASTE TOP SCH ×2 (09:01→21:13)
[2021-07-07] MEDS: DOBUTamine 500 MG/250 ML PREMIX IV SCH (09:02)
[2021-07-07] MEDS: APIXABAN 2.5 MG TABLET PO SCH ×2 (09:02→21:11)
[2021-07-07] MEDS: CITALOPRAM 20 MG TABLET PO SCH (09:03)
[2021-07-07] MEDS: CLORAZEPATE 3.75 MG TABLET PO PRN (09:06)
[2021-07-07] MEDS: methylPREDNISolone SOD SUC 40 MG/1 ML VIAL IV SCH (09:09)
[2021-07-07] MEDS: FUROSEMIDE 40 MG/4 ML VIAL IV SCH ×2 (09:13→16:31)
[2021-07-07] MEDS: INSULIN LISPRO 100 UNIT/ML SUBCUT SCH ×4 (09:16→21:12)
[2021-07-07] MEDS: INSULIN GLARGINE 100 UNIT/ML SUBCUT SCH (09:18)
[2021-07-07] MEDS: MEROPENEM 500 MG in SODIUM CHLORIDE 0.9% 100 ML IV SCH ×2 (09:19→21:12)
[2021-07-07] MEDS: ALBUMIN 5% 12.5 GM/250 ML VIAL IV PRN ×2 (09:23→16:32)
[2021-07-07] MEDS: CHLORHEXIDINE 0.12% ORAL RINSE 60 ML BOTTLE SWISH/SPIT SCH ×2 (09:32→21:12)
[2021-07-07] MEDS: CIPROFLOXACIN/DEXAMETHASONE OTIC SUSP 7.5 ML BOTTLE BOTH EARS SCH ×2 (09:33→21:12)
[2021-07-07] MEDS: traMADol 50 MG TABLET PO PRN ×2 (13:04→21:11)
[2021-07-07] MEDS: CLORAZEPATE 7.5 MG TABLET PO PRN (16:34)
[2021-07-07] MEDS: ZALEPLON 5 MG CAPSULE PO SCH (21:10)
[2021-07-08] MEDS: traMADol 50 MG TABLET PO PRN (04:21)
[2021-07-08] MEDS: CLORAZEPATE 7.5 MG TABLET PO PRN (04:21)
[2021-07-08] MEDS: ALBUTEROL/IPRATROPIUM 3 ML NEB RESP TX SCH ×5 (05:25→14:45)
[2021-07-08 05:37] LABS: Basophils % 0.1 % (0.0-0.8); Hematocrit 24.9 VOL% (35.7-47.0); Immature Granulocytes % 0.8 %; Immature Granulocytes Absolute 0.14 #; Lymphocytes # 0.2 10*3/uL (1.4-4.0); Lymphocytes % 1.1 % (21.3-54.2); Mean Corpuscular HGB Conc 32.1 GM/DL (32-36); Mean Corpuscular Volume 93.3 FL (87-102); Mean Platelet Volume 12.5 FL (9.6-12.0); Monocytes % 1.9 % (1.7-12.7); NRBC # 0.09 10*3/uL; Neutrophils % 96.1 % (38.7-73.9); Platelet Count 53 T/CUMM (130-400); Red Blood Count 2.67 MC/CUMM (3.8-5.5); Red Cell Distribution Width 16.9 % (9.3-17.3); White Blood Count 18.5 T/CUMM (4-12)
[2021-07-08 05:55] LABS: Albumin 3.3 G/DL (3.4-5.0); Bilirubin,Direct 1.4 MG/DL (0.0-0.20); Bilirubin,Total 3.4 MG/DL (0.20-1.00); Total Protein 5.9 G/DL (6.4-8.2)
[2021-07-08 06:02] LABS: Anisocytosis 1+; Hypochromasia 1+; Lymphocytes 2 % (20-55); Microcytosis 1+; Nucleated Red Blood Cells 2 (0-5); Polychromasia Slight; Segmented Neutrophils 96 % (50-85); Total Cells Counted 100
[2021-07-08 06:03] LABS: Ovalocytes Slight; Platelet Estimate Decreased
[2021-07-08 06:06] LABS: Calcium 8.7 MG/DL (8.5-10.1); Osmolality,Calculated 308.8 MOS/KG (273-304); Potassium 3.3 MMOL/L (3.5-5.1)
[2021-07-08] MEDS ORDERED: DIGOXIN 0.5 MG/2 ML AMP IV ONE (07:30)
[2021-07-08] MEDS ORDERED: POTASSIUM CHLORIDE 20 MEQ PACK PO ONE (07:35)
[2021-07-08] MEDS: rOPINIRole 0.25 MG TABLET PO SCH ×2 (08:47→14:05)
[2021-07-08] MEDS: APIXABAN 2.5 MG TABLET PO SCH (08:47)
[2021-07-08] MEDS: ASCORBIC ACID 500 MG TABLET NG SCH (08:47)
[2021-07-08] MEDS: INSULIN LISPRO 100 UNIT/ML SUBCUT SCH ×2 (08:48→11:36)
[2021-07-08] MEDS: PANTOPRAZOLE 40 MG TABLET PO SCH (08:48)
[2021-07-08] MEDS: AMIODARONE 200 MG TABLET PO SCH (08:48)
[2021-07-08] MEDS: CITALOPRAM 20 MG TABLET PO SCH (08:48)
[2021-07-08] MEDS: ASPIRIN CHEW 81 MG TABLET PO SCH (08:48)
[2021-07-08] MEDS: INSULIN GLARGINE 100 UNIT/ML SUBCUT SCH (08:49)
[2021-07-08] MEDS: methylPREDNISolone SOD SUC 40 MG/1 ML VIAL IV SCH (08:50)
[2021-07-08] MEDS: CIPROFLOXACIN/DEXAMETHASONE OTIC SUSP 7.5 ML BOTTLE BOTH EARS SCH (08:51)
[2021-07-08] MEDS: CHLORHEXIDINE 0.12% ORAL RINSE 60 ML BOTTLE SWISH/SPIT SCH (08:51)
[2021-07-08] MEDS: METOPROLOL TARTRATE 25 MG TABLET PO SCH (08:51)
[2021-07-08] MEDS: FUROSEMIDE 40 MG/4 ML VIAL IV SCH (09:04)
[2021-07-08] MEDS: MEROPENEM 500 MG in SODIUM CHLORIDE 0.9% 100 ML IV SCH (09:04)
[2021-07-08] MEDS: DESITIN 4OZ/NYSTATIN 15 GRAM MIXTURE PASTE TOP SCH (09:17)
[2021-07-08] MEDS: DOBUTamine 500 MG/250 ML PREMIX IV SCH (09:19)
[2021-07-08] MEDS ORDERED: INSULIN GLARGINE 100 UNIT/ML SUBCUT ONE (11:00)
[2021-07-08] MEDS ORDERED: FUROSEMIDE 40 MG TABLET PO SCH (16:00)
[2021-07-08] MEDS ORDERED: EZETIMIBE 10 MG TABLET PO SCH (21:00)
[2021-07-09] MEDS ORDERED: methylPREDNISolone SOD SUC 40 MG/1 ML VIAL IV SCH (09:00)
[2021-07-09] MEDS ORDERED: INSULIN GLARGINE 100 UNIT/ML SUBCUT SCH (09:00)
== END 2021-07-08 16:09 | DRG 233 ==
LOC: N.ED 18:03 → N.EDINP 18:03 → N.ICU 06-22 04:16 → SUATTDRO 06-22 09:30 → N.CVR 06-24 07:18 → N.ICU 06-27 17:00
PROVIDERS: ADMIT Internal Medicine; ATTEND Internal Medicine

== ENCOUNTER 2021-07-13 15:32 | Inpatient (IN) ==
[2021-07-13 16:17] LABS: Basophils % 0.1 % (0.0-0.8); Hematocrit 30.3 VOL% (35.7-47.0); Hemoglobin 9.2 GM/DL (12.0-16.0); Immature Granulocytes % 0.5 %; Immature Granulocytes Absolute 0.13 #; Lymphocytes # 0.4 10*3/uL (1.4-4.0); Lymphocytes % 1.7 % (21.3-54.2); Mean Corpuscular HGB Conc 30.4 GM/DL (32-36); Mean Corpuscular Volume 97.4 FL (87-102); Mean Platelet Volume 13.2 FL (9.6-12.0); Monocytes % 0.7 % (1.7-12.7); NRBC # 0.02 10*3/uL; Platelet Count 52 T/CUMM (130-400); Red Blood Count 3.11 MC/CUMM (3.8-5.5); Red Cell Distribution Width 19.1 % (9.3-17.3); White Blood Count 25.3 T/CUMM (4-12)
[2021-07-13 16:20] LABS: ABG Base Excess 19.9 MMOL/L (-2.5-2.5); ABG HCO3 44.2 MMOL/L (20-26); ABG Oxygen Saturation 95.8 % (95-100); ABG PH 7.556 (7.35-7.45); ABG PO2 70.9 MM HG (80-95); ABG TCO2 41.3 MMOL/L (23-27)
[2021-07-13] MEDS ORDERED: MEROPENEM 500 MG in SODIUM CHLORIDE 0.9% 100 ML IV ONE (16:28)
[2021-07-13] MEDS ORDERED: SODIUM CHLORIDE 0.9% 500 ML IV STA (16:32)
[2021-07-13 16:43] LABS: Albumin 2.9 G/DL (3.4-5.0); Bilirubin,Total 5.8 MG/DL (0.20-1.00); Calcium 9.2 MG/DL (8.5-10.1); Total Protein 5.9 G/DL (6.4-8.2)
[2021-07-13 16:44] LABS: Osmolality,Calculated 333.3 MOS/KG (273-304); Potassium 2.8 MMOL/L (3.5-5.1)
[2021-07-13 16:47] LABS: Anisocytosis 2+; Band Neutrophils 4 % (0-10); Hypochromasia 1+; Macrocytosis 2+; Microcytosis Slight; Platelet Estimate Decreased; Polychromasia Few; Segmented Neutrophils 96 % (50-85); Target Cells 1+; Total Cells Counted 100
[2021-07-13] MEDS ORDERED: guaiFENesin/DM ER 600-30 MG TABLET PO PRN (17:36)
[2021-07-13] MEDS ORDERED: ACETAMINOPHEN 325 MG TABLET PO PRN (17:36)
[2021-07-13] MEDS ORDERED: GLUCAGON 1 MG VIAL IM PRN (17:36)
[2021-07-13] MEDS ORDERED: DEXTROSE 50% 25 GM/50 ML SYRINGE IV PRN (17:45)
[2021-07-13] MEDS ORDERED: ALBUTEROL 2.5 MG/3 ML NEB RESP TX PRN (17:45)
[2021-07-13] MEDS ORDERED: ENOXAPARIN 30 MG/0.3 ML SYRINGE SUBCUT SCH (18:00)
[2021-07-13] MEDS ORDERED: LACTATED RINGERS 500 ML IV ONE (18:04)
[2021-07-13] MEDS: POTASSIUM CHLORIDE RIDER 20 MEQ/100 ML PREMIX IV PRN ×2 (18:29→20:52)
[2021-07-13] MEDS: methylPREDNISolone SOD SUC 40 MG/1 ML VIAL IV SCH (18:29)
[2021-07-13] MEDS ORDERED: VANCOMYCIN INJ 1,000 MG in SODIUM CHLORIDE 0.9% 250 ML IV ONE (18:35)
[2021-07-13] MEDS ORDERED: DIGOXIN 0.5 MG/2 ML AMP IV ONE ×2 (19:29→21:00)
[2021-07-13] MEDS ORDERED: DIGOXIN 0.5 MG/2 ML AMP ONE (19:32)
[2021-07-13] MEDS: ALBUTEROL/IPRATROPIUM 3 ML NEB RESP TX SCH (20:00)
[2021-07-13] MEDS: INSULIN REGULAR 100 UNIT/ML SUBCUT SCH (20:43)
[2021-07-13] MEDS: LACTATED RINGERS 1,000 ML IV SCH (21:04)
[2021-07-13] MEDS: POTASSIUM CHLORIDE RIDER 10 MEQ/100 ML PREMIX IV PRN (22:25)
[2021-07-14] MEDS: ALBUTEROL/IPRATROPIUM 3 ML NEB RESP TX SCH ×4 (01:30→20:40)
[2021-07-14 04:16] LABS: Basophils % 0.1 % (0.0-0.8); Hematocrit 28.4 VOL% (35.7-47.0); Hemoglobin 8.6 GM/DL (12.0-16.0); Immature Granulocytes % 0.7 %; Immature Granulocytes Absolute 0.19 #; Lymphocytes # 0.3 10*3/uL (1.4-4.0); Lymphocytes % 1.3 % (21.3-54.2); Mean Corpuscular HGB Conc 30.3 GM/DL (32-36); Mean Corpuscular Volume 99.3 FL (87-102); Mean Platelet Volume 13.2 FL (9.6-12.0); Monocytes % 0.5 % (1.7-12.7); NRBC # 0.04 10*3/uL; Neutrophils % 97.4 % (38.7-73.9); Platelet Count 46 T/CUMM (130-400); Red Blood Count 2.86 MC/CUMM (3.8-5.5); Red Cell Distribution Width 18.9 % (9.3-17.3); White Blood Count 26.4 T/CUMM (4-12)
[2021-07-14 04:35] LABS: Albumin 2.9 G/DL (3.4-5.0); Bilirubin,Total 6.8 MG/DL (0.20-1.00); Calcium 9.2 MG/DL (8.5-10.1); Osmolality,Calculated 339.3 MOS/KG (273-304); Potassium 3.9 MMOL/L (3.5-5.1); Total Protein 5.6 G/DL (6.4-8.2)
[2021-07-14 04:37] LABS: Hypochromasia 1+; Lymphocytes 1 % (20-55); Microcytosis 1+; Platelet Estimate Decreased; Segmented Neutrophils 97 % (50-85); Total Cells Counted 100
[2021-07-14] MEDS: methylPREDNISolone SOD SUC 40 MG/1 ML VIAL IV SCH ×2 (05:13→18:34)
[2021-07-14] MEDS: MEROPENEM 500 MG in SODIUM CHLORIDE 0.9% 100 ML IV SCH ×2 (05:15→18:33)
[2021-07-14] MEDS: INSULIN REGULAR 100 UNIT/ML SUBCUT SCH ×4 (09:16→20:00)
[2021-07-14 10:03] LABS: ABG Base Excess 16.4 MMOL/L (-2.5-2.5); ABG Oxygen Saturation 88.6 % (95-100); ABG PCO2 43.9 MM HG (35-48); ABG PH 7.577 (7.35-7.45); ABG TCO2 41.3 MMOL/L (23-27); Allen Test Positive; Pt O2 Delivery Device BIPAP
[2021-07-14] MEDS ORDERED: SUCCINYLCHOLINE 200 MG/10 ML VIAL ONE (10:30)
[2021-07-14] MEDS ORDERED: ETOMIDATE 20 MG/10 ML VIAL IV ONE ×2 (10:31)
[2021-07-14] MEDS: NOREPINEPHRINE 8 MG in SODIUM CHLORIDE 0.9% 242 ML IV PRN (11:10)
[2021-07-14] MEDS: MIDAZOLAM 100 MG in SODIUM CHLORIDE 0.9% 80 ML IV PRN (11:10)
[2021-07-14 12:13] LABS: INR 1.8; PT Patient Result 19.6 SECS (10.5-12.0)
[2021-07-14 12:24] LABS: ABG Base Excess 16.5 MMOL/L (-2.5-2.5); ABG HCO3 40.5 MMOL/L (20-26); ABG PCO2 46.1 MM HG (35-48); ABG PH 7.556 (7.35-7.45); ABG TCO2 38.2 MMOL/L (23-27)
[2021-07-14] MEDS ORDERED: NOREPINEPHRINE 4 MG/4 ML VIAL IV ONE (12:32)
[2021-07-14] MEDS ORDERED: ROCURONIUM 100 MG/10 ML VIAL IV ONE (13:23)
[2021-07-14] MEDS: LACTATED RINGERS 1,000 ML IV SCH (15:52)
[2021-07-14 16:24] LABS: ABG Base Excess 16.2 MMOL/L (-2.5-2.5); ABG HCO3 40.2 MMOL/L (20-26); ABG PCO2 46.8 MM HG (35-48); ABG PH 7.548 (7.35-7.45); ABG TCO2 37.7 MMOL/L (23-27); Allen Test Positive; Pt O2 Delivery Device Ventilator
[2021-07-15] MEDS ORDERED: FUROSEMIDE 40 MG/4 ML VIAL ONE (01:30)
[2021-07-15] MEDS: ALBUTEROL/IPRATROPIUM 3 ML NEB RESP TX SCH ×4 (02:00→19:00)
[2021-07-15] MEDS: POTASSIUM CHLORIDE RIDER 20 MEQ/100 ML PREMIX IV PRN ×2 (02:56→11:48)
[2021-07-15 05:08] LABS: Basophils % 0.1 % (0.0-0.8); Hematocrit 25.8 VOL% (35.7-47.0); Immature Granulocytes % 0.9 %; Immature Granulocytes Absolute 0.18 #; Lymphocytes # 0.4 10*3/uL (1.4-4.0); Lymphocytes % 1.8 % (21.3-54.2); Mean Corpuscular HGB Conc 30.2 GM/DL (32-36); Mean Platelet Volume 14.1 FL (9.6-12.0); Monocytes % 0.4 % (1.7-12.7); NRBC # 0.07 10*3/uL; Neutrophils % 96.8 % (38.7-73.9); Red Cell Distribution Width 18.7 % (9.3-17.3)
[2021-07-15] MEDS: MEROPENEM 500 MG in SODIUM CHLORIDE 0.9% 100 ML IV SCH ×2 (05:14→19:10)
[2021-07-15] MEDS: methylPREDNISolone SOD SUC 40 MG/1 ML VIAL IV SCH ×2 (05:14→18:23)
[2021-07-15 05:20] LABS: Hemoglobin 7.8 GM/DL (12.0-16.0); Platelet Count 46 T/CUMM (130-400); Red Blood Count 2.58 MC/CUMM (3.8-5.5); White Blood Count 20.6 T/CUMM (4-12)
[2021-07-15 05:27] LABS: Albumin 2.4 G/DL (3.4-5.0); Bilirubin,Total 10.4 MG/DL (0.20-1.00); Calcium 8.9 MG/DL (8.5-10.1); Hypochromasia 2+; Lymphocytes 1 % (20-55); Microcytosis 1+; Osmolality,Calculated 361.2 MOS/KG (273-304); Platelet Estimate Decreased; Potassium 3.8 MMOL/L (3.5-5.1); Segmented Neutrophils 99 % (50-85); Total Cells Counted 100; Total Protein 5.1 G/DL (6.4-8.2)
[2021-07-15] MEDS ORDERED: LACTATED RINGERS 1,000 ML IV ONE (09:26)
[2021-07-15] MEDS ORDERED: METOPROLOL TARTRATE 5 MG/5 ML VIAL IV ONE (11:20)
[2021-07-15] MEDS ORDERED: MORPHINE 2 MG/1 ML SYRINGE ONE (11:20)
[2021-07-15] MEDS ORDERED: MORPHINE 2 MG/1 ML SYRINGE IV ONE (11:21)
[2021-07-15] MEDS: LACTATED RINGERS 1,000 ML IV SCH ×3 (11:40→22:50)
[2021-07-15] MEDS: NOREPINEPHRINE 8 MG in SODIUM CHLORIDE 0.9% 242 ML IV PRN ×2 (11:49→21:12)
[2021-07-15] MEDS: AMIODARONE 200 MG TABLET PO SCH ×2 (12:30→21:19)
[2021-07-15] MEDS: FAMOTIDINE 20 MG/2 ML VIAL IV SCH (12:30)
[2021-07-15] MEDS: INSULIN REGULAR 100 UNIT/ML SUBCUT SCH ×3 (13:00→21:18)
[2021-07-15] MEDS ORDERED: ALBUMIN 25% 25 GM/100 ML VIAL IV ONE (13:54)
[2021-07-15] MEDS ORDERED: DOBUTamine 500 MG/250 ML PREMIX IV SCH (14:00)
[2021-07-15 15:05] LABS: Calcium 8.6 MG/DL (8.5-10.1); Osmolality,Calculated 356.6 MOS/KG (273-304); Potassium 4.5 MMOL/L (3.5-5.1)
[2021-07-15 15:53] LABS: ABG Base Excess 12.3 MMOL/L (-2.5-2.5); ABG HCO3 36.1 MMOL/L (20-26); ABG PCO2 45.2 MM HG (35-48); ABG PH 7.517 (7.35-7.45); ABG TCO2 34.3 MMOL/L (23-27); Pt O2 Delivery Device Ventilator
[2021-07-15] MEDS: fentaNYL INJ 1,250 MCG in SODIUM CHLORIDE 0.9% 225 ML IV PRN (18:00)
[2021-07-15] MEDS: rOPINIRole 0.25 MG TABLET PO SCH ×3 (18:00→21:19)
[2021-07-15 19:26] LABS: Hematocrit 19.9 VOL% (35.7-47.0); Immature Granulocytes Absolute 0.11 #; Lymphocytes # 0.3 10*3/uL (1.4-4.0); Lymphocytes % 2.2 % (21.3-54.2); Mean Corpuscular HGB Conc 30.2 GM/DL (32-36); Mean Platelet Volume 14.2 FL (9.6-12.0); Monocytes % 0.5 % (1.7-12.7); NRBC # 0.06 10*3/uL; Neutrophils % 96.3 % (38.7-73.9); Red Blood Count 2.01 MC/CUMM (3.8-5.5); Red Cell Distribution Width 18.5 % (9.3-17.3); White Blood Count 11.1 T/CUMM (4-12)
[2021-07-15 19:31] LABS: Platelet Count 33 T/CUMM (130-400)
[2021-07-15 19:46] LABS: Band Neutrophils 1 % (0-10); Lymphocytes 1 % (20-55); Segmented Neutrophils 98 % (50-85); Total Cells Counted 100
[2021-07-15 19:47] LABS: Anisocytosis 1+; Hypochromasia 1+; Macrocytosis 1+; Platelet Estimate Decreased; Polychromasia 1+; Target Cells Few
[2021-07-15] MEDS ORDERED: SODIUM CHLORIDE 0.9% 1,000 ML IV PRN (20:39)
[2021-07-15] MEDS ORDERED: NOREPINEPHRINE 4 MG/4 ML VIAL IV ONE (20:55)
[2021-07-15] MEDS ORDERED: APIXABAN 2.5 MG TABLET PO SCH ×2 (21:00)
[2021-07-15] MEDS: EZETIMIBE 10 MG TABLET PO SCH (21:19)
[2021-07-16] MEDS: INSULIN REGULAR 100 UNIT/ML SUBCUT SCH ×4 (00:31→20:06)
[2021-07-16 00:57] LABS: Hematocrit 24.4 VOL% (35.7-47.0)
[2021-07-16 01:00] LABS: Hemoglobin 7.6 GM/DL (12.0-16.0)
[2021-07-16 02:14] LABS: ABG Base Excess 11.6 MMOL/L (-2.5-2.5); ABG HCO3 35.4 MMOL/L (20-26); ABG PCO2 43.2 MM HG (35-48); ABG PH 7.525 (7.35-7.45); ABG TCO2 33.3 MMOL/L (23-27)
[2021-07-16] MEDS: LACTATED RINGERS 1,000 ML IV SCH ×4 (03:19→22:51)
[2021-07-16] MEDS: ALBUTEROL/IPRATROPIUM 3 ML NEB RESP TX SCH ×4 (03:21→19:00)
[2021-07-16 03:56] LABS: Hematocrit 24.4 VOL% (35.7-47.0); Hemoglobin 7.4 GM/DL (12.0-16.0); Immature Granulocytes % 0.8 %; Immature Granulocytes Absolute 0.08 #; Lymphocytes # 0.2 10*3/uL (1.4-4.0); Lymphocytes % 1.9 % (21.3-54.2); Mean Corpuscular HGB Conc 30.3 GM/DL (32-36); Mean Corpuscular Volume 93.5 FL (87-102); Mean Platelet Volume 12.2 FL (9.6-12.0); Monocytes % 0.3 % (1.7-12.7); NRBC # 0.09 10*3/uL; Red Blood Count 2.61 MC/CUMM (3.8-5.5); White Blood Count 9.7 T/CUMM (4-12)
[2021-07-16 04:01] LABS: Platelet Count 25 T/CUMM (130-400)
[2021-07-16 04:12] LABS: Albumin 2.7 G/DL (3.4-5.0); Bilirubin,Total 9.2 MG/DL (0.20-1.00); Calcium 8.4 MG/DL (8.5-10.1); Osmolality,Calculated 348.3 MOS/KG (273-304); Total Protein 4.7 G/DL (6.4-8.2)
[2021-07-16 04:22] LABS: Hypochromasia 1+; Lymphocytes 4 % (20-55); Microcytosis 1+; Nucleated Red Blood Cells 1 (0-5); Platelet Estimate Decreased; Segmented Neutrophils 96 % (50-85); Total Cells Counted 100
[2021-07-16 04:55] LABS: Hepatitis B Core IgM Quant 0.16 Index; Hepatitis B Surface Ag Quant < 0.10 Index; Hepatitis B Surface Ag Result Non-Reactive (NonReactive); Hepatitis C Virus Ab Quant 0.06 Index; Hepatitis C Virus Ab Result Non-Reactive (NonReactive)
[2021-07-16] MEDS ORDERED: NOREPINEPHRINE 4 MG/4 ML VIAL IV ONE ×2 (05:19)
[2021-07-16] MEDS: methylPREDNISolone SOD SUC 40 MG/1 ML VIAL IV SCH ×2 (05:38→20:07)
[2021-07-16] MEDS: MEROPENEM 500 MG in SODIUM CHLORIDE 0.9% 100 ML IV SCH (06:31)
[2021-07-16] MEDS: NOREPINEPHRINE 8 MG in SODIUM CHLORIDE 0.9% 242 ML IV PRN ×2 (06:35→18:15)
[2021-07-16] MEDS: AMIODARONE 200 MG TABLET PO SCH ×2 (08:27→20:55)
[2021-07-16] MEDS: ASPIRIN CHEW 81 MG TABLET PO SCH (08:27)
[2021-07-16] MEDS: rOPINIRole 0.25 MG TABLET PO SCH ×4 (08:27→20:55)
[2021-07-16] MEDS: CITALOPRAM 20 MG TABLET PO SCH (08:27)
[2021-07-16 11:27] LABS: Basophils % 0.1 % (0.0-0.8); Hematocrit 24.8 VOL% (35.7-47.0); Hemoglobin 7.7 GM/DL (12.0-16.0); Immature Granulocytes % 0.6 %; Immature Granulocytes Absolute 0.07 #; Lymphocytes # 0.2 10*3/uL (1.4-4.0); Mean Corpuscular Volume 94.3 FL (87-102); Mean Platelet Volume 14.4 FL (9.6-12.0); Monocytes % 0.6 % (1.7-12.7); Neutrophils % 96.7 % (38.7-73.9); Red Blood Count 2.63 MC/CUMM (3.8-5.5); Red Cell Distribution Width 19.2 % (9.3-17.3); White Blood Count 10.9 T/CUMM (4-12)
[2021-07-16 11:33] LABS: Platelet Count 24 T/CUMM (130-400)
[2021-07-16 11:42] LABS: Band Neutrophils 1 % (0-10); Lymphocytes 2 % (20-55); Nucleated Red Blood Cells 2 (0-5); Platelet Estimate Decreased; Segmented Neutrophils 97 % (50-85); Total Cells Counted 100
[2021-07-16 11:43] LABS: Hypochromasia 1+; Microcytosis 1+
[2021-07-16] MEDS ORDERED: SODIUM CHLORIDE 0.9% 1,000 ML IV PRN (11:49)
[2021-07-16] MEDS: FAMOTIDINE 20 MG/2 ML VIAL IV SCH (13:30)
[2021-07-16] MEDS: fentaNYL INJ 1,250 MCG in SODIUM CHLORIDE 0.9% 225 ML IV PRN (14:20)
[2021-07-16] MEDS: DESITIN 4OZ/NYSTATIN 15 GRAM MIXTURE PASTE TOP SCH ×2 (16:57→20:55)
[2021-07-16] MEDS: ENOXAPARIN 60 MG/0.6 ML SYRINGE SUBCUT SCH (20:08)
[2021-07-16] MEDS: EZETIMIBE 10 MG TABLET PO SCH (20:55)
[2021-07-16 21:47] LABS: Basophils % 0.1 % (0.0-0.8); Hematocrit 29.3 VOL% (35.7-47.0); Hemoglobin 9.1 GM/DL (12.0-16.0); Immature Granulocytes % 0.4 %; Immature Granulocytes Absolute 0.05 #; Lymphocytes # 0.3 10*3/uL (1.4-4.0); Lymphocytes % 2.2 % (21.3-54.2); Mean Corpuscular HGB Conc 31.1 GM/DL (32-36); Mean Corpuscular Volume 93.3 FL (87-102); Monocytes % 0.5 % (1.7-12.7); NRBC # 0.09 10*3/uL; Neutrophils % 96.8 % (38.7-73.9); Red Blood Count 3.14 MC/CUMM (3.8-5.5); Red Cell Distribution Width 18.1 % (9.3-17.3); White Blood Count 11.5 T/CUMM (4-12)
[2021-07-16 21:52] LABS: Platelet Count 21 T/CUMM (130-400)
[2021-07-16 23:11] LABS: Band Neutrophils 6 % (0-10); Lymphocytes 1 % (20-55); Metamyelocytes 1 %; Segmented Neutrophils 92 % (50-85)
[2021-07-16 23:12] LABS: Howell-Jolly Bodies Few; Hypochromasia 2+; Platelet Estimate Decreased
[2021-07-16 23:13] LABS: Total Cells Counted 100
[2021-07-17] MEDS: INSULIN REGULAR 100 UNIT/ML SUBCUT SCH ×4 (00:17→18:17)
[2021-07-17] MEDS: ALBUTEROL/IPRATROPIUM 3 ML NEB RESP TX SCH ×4 (00:36→19:00)
[2021-07-17 03:39] LABS: Basophils % 0.1 % (0.0-0.8); Hematocrit 28.5 VOL% (35.7-47.0); Hemoglobin 8.8 GM/DL (12.0-16.0); Immature Granulocytes % 0.6 %; Immature Granulocytes Absolute 0.06 #; Lymphocytes # 0.3 10*3/uL (1.4-4.0); Lymphocytes % 2.4 % (21.3-54.2); Mean Corpuscular HGB Conc 30.9 GM/DL (32-36); Mean Corpuscular Volume 94.1 FL (87-102); Mean Platelet Volume 13.7 FL (9.6-12.0); Monocytes % 0.7 % (1.7-12.7); Neutrophils % 96.2 % (38.7-73.9); Red Blood Count 3.03 MC/CUMM (3.8-5.5); White Blood Count 10.7 T/CUMM (4-12)
[2021-07-17 03:48] LABS: Platelet Count 21 T/CUMM (130-400)
[2021-07-17 03:54] LABS: Albumin 2.4 G/DL (3.4-5.0); Bilirubin,Total 9.7 MG/DL (0.20-1.00); Calcium 8.2 MG/DL (8.5-10.1); Osmolality,Calculated 351.1 MOS/KG (273-304); Potassium 4.9 MMOL/L (3.5-5.1); Total Protein 4.6 G/DL (6.4-8.2)
[2021-07-17 03:56] LABS: ABG Base Excess 7.7 MMOL/L (-2.5-2.5); ABG HCO3 32.7 MMOL/L (20-26); ABG Oxygen Saturation 97.5 % (95-100); ABG PCO2 48.2 MM HG (35-48); ABG PH 7.449 (7.35-7.45); ABG PO2 102.6 MM HG (80-95); ABG TCO2 34.2 MMOL/L (23-27); Allen Test Positive; Pt O2 Delivery Device Ventilator
[2021-07-17 04:06] LABS: Nucleated Red Blood Cells 1 (0-5); Platelet Estimate Decreased; Segmented Neutrophils 99 % (50-85); Total Cells Counted 100
[2021-07-17 04:07] LABS: Hypochromasia 1+; Microcytosis 1+
[2021-07-17] MEDS: fentaNYL INJ 1,250 MCG in SODIUM CHLORIDE 0.9% 225 ML IV PRN ×2 (04:20→14:50)
[2021-07-17] MEDS: methylPREDNISolone SOD SUC 40 MG/1 ML VIAL IV SCH ×3 (06:30→22:03)
[2021-07-17] MEDS: LACTATED RINGERS 1,000 ML IV SCH (07:18)
[2021-07-17] MEDS: CITALOPRAM 20 MG TABLET PO SCH (08:48)
[2021-07-17] MEDS: ASPIRIN CHEW 81 MG TABLET PO SCH (08:48)
[2021-07-17] MEDS: rOPINIRole 0.25 MG TABLET PO SCH ×4 (08:48→22:03)
[2021-07-17] MEDS: DESITIN 4OZ/NYSTATIN 15 GRAM MIXTURE PASTE TOP SCH ×2 (08:49→22:03)
[2021-07-17] MEDS: AMIODARONE 200 MG TABLET PO SCH ×2 (08:49→22:02)
[2021-07-17] MEDS: SODIUM CHLORIDE 0.45% 1,000 ML IV SCH ×2 (12:18→21:26)
[2021-07-17] MEDS: METOCLOPRAMIDE 10 MG/2 ML VIAL IV SCH ×2 (13:22→18:17)
[2021-07-17] MEDS: INSULIN GLARGINE 100 UNIT/ML SUBCUT SCH (13:22)
[2021-07-17] MEDS: FAMOTIDINE 20 MG/2 ML VIAL IV SCH (13:23)
[2021-07-17] MEDS: ACYCLOVIR INJ 250 MG in SODIUM CHLORIDE 0.9% 100 ML IV SCH (17:55)
[2021-07-17] MEDS: ENOXAPARIN 60 MG/0.6 ML SYRINGE SUBCUT SCH (18:17)
[2021-07-17] MEDS: EZETIMIBE 10 MG TABLET PO SCH (22:03)
[2021-07-18] MEDS: METOCLOPRAMIDE 10 MG/2 ML VIAL IV SCH ×4 (01:11→17:57)
[2021-07-18] MEDS: INSULIN REGULAR 100 UNIT/ML SUBCUT SCH ×4 (01:11→17:57)
[2021-07-18] MEDS: ACYCLOVIR INJ 250 MG in SODIUM CHLORIDE 0.9% 100 ML IV SCH ×3 (01:12→17:57)
[2021-07-18] MEDS: fentaNYL INJ 1,250 MCG in SODIUM CHLORIDE 0.9% 225 ML IV PRN ×3 (01:16→23:40)
[2021-07-18] MEDS: ALBUTEROL/IPRATROPIUM 3 ML NEB RESP TX SCH ×4 (01:32→19:31)
[2021-07-18 03:05] LABS: ABG Base Excess 7.2 MMOL/L (-2.5-2.5); ABG HCO3 31.1 MMOL/L (20-26); ABG Oxygen Saturation 99.7 % (95-100); ABG PCO2 45.8 MM HG (35-48); ABG PH 7.452 (7.35-7.45); ABG TCO2 30.1 MMOL/L (23-27)
[2021-07-18 05:28] LABS: Hematocrit 24.2 VOL% (35.7-47.0); Hemoglobin 7.5 GM/DL (12.0-16.0); Immature Granulocytes % 0.5 %; Immature Granulocytes Absolute 0.03 #; Lymphocytes # 0.3 10*3/uL (1.4-4.0); Lymphocytes % 5.1 % (21.3-54.2); Mean Corpuscular Volume 94.5 FL (87-102); Monocytes % 1.1 % (1.7-12.7); Neutrophils % 93.3 % (38.7-73.9); Red Blood Count 2.56 MC/CUMM (3.8-5.5); Red Cell Distribution Width 17.7 % (9.3-17.3); White Blood Count 6.6 T/CUMM (4-12)
[2021-07-18] MEDS: SODIUM CHLORIDE 0.45% 1,000 ML IV SCH ×2 (05:47→17:56)
[2021-07-18 06:00] LABS: Albumin 2.2 G/DL (3.4-5.0); Calcium 8.1 MG/DL (8.5-10.1); Osmolality,Calculated 320.3 MOS/KG (273-304); Potassium 4.5 MMOL/L (3.5-5.1); Total Protein 4.5 G/DL (6.4-8.2)
[2021-07-18 06:15] LABS: Platelet Count 15 T/CUMM (130-400)
[2021-07-18 06:18] LABS: Band Neutrophils 1 % (0-10); Hypochromasia 1+; Lymphocytes 4 % (20-55); Microcytosis 1+; Nucleated Red Blood Cells 3 (0-5); Platelet Estimate Decreased; Segmented Neutrophils 95 % (50-85); Total Cells Counted 100
[2021-07-18] MEDS: INSULIN GLARGINE 100 UNIT/ML SUBCUT SCH (08:08)
[2021-07-18] MEDS: ASPIRIN CHEW 81 MG TABLET PO SCH (08:09)
[2021-07-18] MEDS: rOPINIRole 0.25 MG TABLET PO SCH ×4 (08:09→20:59)
[2021-07-18] MEDS: CITALOPRAM 20 MG TABLET PO SCH (08:09)
[2021-07-18] MEDS: AMIODARONE 200 MG TABLET PO SCH ×2 (08:09→20:59)
[2021-07-18] MEDS: DESITIN 4OZ/NYSTATIN 15 GRAM MIXTURE PASTE TOP SCH ×2 (08:12→21:00)
[2021-07-18] MEDS: methylPREDNISolone SOD SUC 40 MG/1 ML VIAL IV SCH ×2 (11:15→21:40)
[2021-07-18] MEDS ORDERED: NOREPINEPHRINE 8 MG in SODIUM CHLORIDE 0.9% 242 ML IV PRN (11:31)
[2021-07-18] MEDS: FAMOTIDINE 20 MG/2 ML VIAL IV SCH (13:10)
[2021-07-18] MEDS: ENOXAPARIN 60 MG/0.6 ML SYRINGE SUBCUT SCH (17:58)
[2021-07-18] MEDS: EZETIMIBE 10 MG TABLET PO SCH (20:59)
[2021-07-19] MEDS: METOCLOPRAMIDE 10 MG/2 ML VIAL IV SCH ×4 (00:11→17:52)
[2021-07-19] MEDS: INSULIN REGULAR 100 UNIT/ML SUBCUT SCH ×4 (00:12→17:52)
[2021-07-19] MEDS: ACYCLOVIR INJ 250 MG in SODIUM CHLORIDE 0.9% 100 ML IV SCH ×3 (00:12→16:16)
[2021-07-19] MEDS: ALBUTEROL/IPRATROPIUM 3 ML NEB RESP TX SCH ×4 (00:34→19:45)
[2021-07-19 03:38] LABS: ABG HCO3 25.3 MMOL/L (20-26); ABG PCO2 51.3 MM HG (35-48); ABG PH 7.335 (7.35-7.45); ABG TCO2 25.4 MMOL/L (23-27)
[2021-07-19 04:44] LABS: Basophils % 0.1 % (0.0-0.8); Hematocrit 32.2 VOL% (35.7-47.0); Hemoglobin 9.9 GM/DL (12.0-16.0); Immature Granulocytes % 0.8 %; Immature Granulocytes Absolute 0.07 #; Lymphocytes # 0.4 10*3/uL (1.4-4.0); Lymphocytes % 4.8 % (21.3-54.2); Mean Corpuscular HGB Conc 30.7 GM/DL (32-36); Mean Corpuscular Volume 92.5 FL (87-102); Monocytes % 1.4 % (1.7-12.7); NRBC # 0.15 10*3/uL; Neutrophils % 92.9 % (38.7-73.9); Red Blood Count 3.48 MC/CUMM (3.8-5.5); Red Cell Distribution Width 17.5 % (9.3-17.3); White Blood Count 9.2 T/CUMM (4-12)
[2021-07-19 04:56] LABS: INR 1.2; PT Patient Result 13.4 SECS (10.5-12.0); Partial Thromboplastin Time 32.9 SECS (23.8-32.1)
[2021-07-19 05:08] LABS: Platelet Count 14 T/CUMM (130-400)
[2021-07-19 05:10] LABS: Alanine Aminotransferase 205 U/L (13-56); Albumin 2.5 G/DL (3.4-5.0); Alkaline Phosphatase 191 U/L (45-117); Aspartate Amino Transferase 136 U/L (0-37); Blood Urea Nitrogen 119 MG/DL (7-18); Calcium 8.2 MG/DL (8.5-10.1); Carbon Dioxide 28 MMOL/L (21-32); Estimated Glom Filtration Rate 24 ML/MIN; Glucose 188 MG/DL (74-106); HDL Cholesterol < 10 MG/DL (40-60); Osmolality,Calculated 315.8 MOS/KG (273-304); Potassium 4.7 MMOL/L (3.5-5.1); Sodium 137 MMOL/L (136-145); Total Protein 5.2 G/DL (6.4-8.2); Triglycerides 411 MG/DL (2-150); VLDL Cholesterol 82.2 MG/DL
[2021-07-19 05:11] LABS: Hypochromasia 1+; Lymphocytes 3 % (20-55); Microcytosis 1+; Nucleated Red Blood Cells 4 (0-5); Platelet Estimate Decreased; Segmented Neutrophils 97 % (50-85); Total Cells Counted 100
[2021-07-19] MEDS: SODIUM CHLORIDE 0.45% 1,000 ML IV SCH (07:52)
[2021-07-19] MEDS: CITALOPRAM 20 MG TABLET PO SCH (08:53)
[2021-07-19] MEDS: AMIODARONE 200 MG TABLET PO SCH ×2 (08:53→20:59)
[2021-07-19] MEDS: rOPINIRole 0.25 MG TABLET PO SCH ×4 (08:53→20:58)
[2021-07-19] MEDS: ASPIRIN CHEW 81 MG TABLET PO SCH (08:53)
[2021-07-19] MEDS: DESITIN 4OZ/NYSTATIN 15 GRAM MIXTURE PASTE TOP SCH ×2 (08:53→20:04)
[2021-07-19] MEDS ORDERED: OMEGA 3 ACID ETHYL ESTERS 1 GM CAPSULE PO SCH (09:00)
[2021-07-19] MEDS: INSULIN GLARGINE 100 UNIT/ML SUBCUT SCH (09:11)
[2021-07-19] MEDS: methylPREDNISolone SOD SUC 40 MG/1 ML VIAL IV SCH ×2 (10:02→22:54)
[2021-07-19] MEDS: MIDAZOLAM 100 MG in SODIUM CHLORIDE 0.9% 80 ML IV PRN (10:18)
[2021-07-19] MEDS: fentaNYL INJ 1,250 MCG in SODIUM CHLORIDE 0.9% 225 ML IV PRN (11:40)
[2021-07-19] MEDS: FAMOTIDINE 20 MG/2 ML VIAL IV SCH (12:55)
[2021-07-19] MEDS ORDERED: ALBUMIN 25% 50 GM/200 ML VIAL IV ONE (13:03)
[2021-07-19] MEDS ORDERED: NOREPINEPHRINE 4 MG/4 ML VIAL IV ONE ×2 (13:17→13:25)
[2021-07-19] MEDS: NOREPINEPHRINE 8 MG in SODIUM CHLORIDE 0.9% 242 ML IV PRN (13:30)
[2021-07-19] MEDS: ENOXAPARIN 60 MG/0.6 ML SYRINGE SUBCUT SCH (17:52)
[2021-07-19] MEDS: EZETIMIBE 10 MG TABLET PO SCH (20:58)
[2021-07-20] MEDS: METOCLOPRAMIDE 10 MG/2 ML VIAL IV SCH ×4 (00:43→17:19)
[2021-07-20] MEDS: INSULIN REGULAR 100 UNIT/ML SUBCUT SCH ×4 (00:44→17:59)
[2021-07-20] MEDS: ACYCLOVIR INJ 250 MG in SODIUM CHLORIDE 0.9% 100 ML IV SCH ×3 (00:45→16:51)
[2021-07-20] MEDS: ALBUTEROL/IPRATROPIUM 3 ML NEB RESP TX SCH ×4 (01:02→19:59)
[2021-07-20 03:47] LABS: ABG Base Excess 1.2 MMOL/L (-2.5-2.5); ABG HCO3 23.2 MMOL/L (20-26); ABG Oxygen Saturation 98.7 % (95-100); ABG PCO2 26.7 MM HG (35-48); ABG PH 7.557 (7.35-7.45); ABG PO2 136.1 MM HG (80-95)
[2021-07-20 04:46] LABS: Hematocrit 21.5 VOL% (35.7-47.0); Hemoglobin 6.9 GM/DL (12.0-16.0); Immature Granulocytes % 0.9 %; Immature Granulocytes Absolute 0.03 #; Lymphocytes # 0.3 10*3/uL (1.4-4.0); Lymphocytes % 7.3 % (21.3-54.2); Mean Corpuscular HGB Conc 32.1 GM/DL (32-36); Mean Corpuscular Volume 88.8 FL (87-102); Monocytes % 1.7 % (1.7-12.7); NRBC # 0.13 10*3/uL; Neutrophils % 90.1 % (38.7-73.9); Red Blood Count 2.42 MC/CUMM (3.8-5.5); Red Cell Distribution Width 17.5 % (9.3-17.3); White Blood Count 3.4 T/CUMM (4-12)
[2021-07-20 04:52] LABS: Platelet Count 12 T/CUMM (130-400)
[2021-07-20 04:55] LABS: INR 1.4; PT Patient Result 15.1 SECS (10.5-12.0)
[2021-07-20 05:02] LABS: Albumin 2.9 G/DL (3.4-5.0); Bilirubin,Total 10.9 MG/DL (0.20-1.00); Calcium 8.1 MG/DL (8.5-10.1); Potassium 4.3 MMOL/L (3.5-5.1); Total Protein 4.8 G/DL (6.4-8.2)
[2021-07-20 05:08] LABS: Band Neutrophils 5 % (0-10); Lymphocytes 8 % (20-55); Segmented Neutrophils 84 % (50-85); Total Cells Counted 100
[2021-07-20 05:09] LABS: Hypochromasia 1+; Platelet Estimate Decreased
[2021-07-20] MEDS ORDERED: SODIUM CHLORIDE 0.9% 1,000 ML IV PRN ×2 (07:15→07:30)
[2021-07-20] MEDS: rOPINIRole 0.25 MG TABLET PO SCH ×4 (08:10→21:01)
[2021-07-20] MEDS: CITALOPRAM 20 MG TABLET PO SCH (08:11)
[2021-07-20] MEDS: AMIODARONE 200 MG TABLET PO SCH ×2 (08:11→21:01)
[2021-07-20] MEDS: DESITIN 4OZ/NYSTATIN 15 GRAM MIXTURE PASTE TOP SCH ×2 (08:11→21:05)
[2021-07-20] MEDS: ASPIRIN CHEW 81 MG TABLET PO SCH (08:11)
[2021-07-20] MEDS: INSULIN GLARGINE 100 UNIT/ML SUBCUT SCH (08:11)
[2021-07-20] MEDS: methylPREDNISolone SOD SUC 40 MG/1 ML VIAL IV SCH ×2 (09:33→22:43)
[2021-07-20] MEDS: FLUCONAZOLE INJ 200 MG/100 ML PREMIX IV SCH (10:22)
[2021-07-20] MEDS: FONDAPARINUX 7.5 MG/0.6 ML SYRINGE SUBCUT SCH (10:22)
[2021-07-20] MEDS ORDERED: FUROSEMIDE 40 MG/4 ML VIAL IV ONE (10:47)
[2021-07-20] MEDS ORDERED: FUROSEMIDE 40 MG/4 ML VIAL ONE (10:49)
[2021-07-20] MEDS: FAMOTIDINE 20 MG/2 ML VIAL IV SCH (12:12)
[2021-07-20 14:53] LABS: ABG Base Excess 0.3 MMOL/L (-2.5-2.5); ABG HCO3 24.7 MMOL/L (20-26); ABG Oxygen Saturation 98.9 % (95-100); ABG PCO2 38.4 MM HG (35-48); ABG PH 7.417 (7.35-7.45); ABG TCO2 22.5 MMOL/L (23-27); Allen Test Positive; Pt O2 Delivery Device Ventilator
[2021-07-20] MEDS: EZETIMIBE 10 MG TABLET PO SCH (21:02)
[2021-07-21] MEDS: ALBUTEROL/IPRATROPIUM 3 ML NEB RESP TX SCH ×4 (00:01→19:50)
[2021-07-21] MEDS: METOCLOPRAMIDE 10 MG/2 ML VIAL IV SCH ×3 (00:22→17:25)
[2021-07-21] MEDS: ACYCLOVIR INJ 250 MG in SODIUM CHLORIDE 0.9% 100 ML IV SCH ×3 (00:23→16:24)
[2021-07-21] MEDS: INSULIN REGULAR 100 UNIT/ML SUBCUT SCH ×5 (00:30→20:54)
[2021-07-21] MEDS ORDERED: INSULIN GLARGINE 100 UNIT/ML SUBCUT SCH (09:00)
[2021-07-21] MEDS: CITALOPRAM 20 MG TABLET PO SCH (12:53)
[2021-07-21] MEDS: ASPIRIN CHEW 81 MG TABLET PO SCH (12:53)
[2021-07-21] MEDS: AMIODARONE 200 MG TABLET PO SCH ×2 (12:53→21:07)
[2021-07-21] MEDS: DESITIN 4OZ/NYSTATIN 15 GRAM MIXTURE PASTE TOP SCH ×2 (12:54→23:16)
[2021-07-21] MEDS: rOPINIRole 0.25 MG TABLET PO SCH ×4 (12:54→21:07)
[2021-07-21] MEDS: FONDAPARINUX 7.5 MG/0.6 ML SYRINGE SUBCUT SCH (12:55)
[2021-07-21] MEDS: methylPREDNISolone SOD SUC 40 MG/1 ML VIAL IV SCH ×2 (12:55→23:15)
[2021-07-21] MEDS: FAMOTIDINE 20 MG/2 ML VIAL IV SCH (12:55)
[2021-07-21] MEDS: FLUCONAZOLE INJ 200 MG/100 ML PREMIX IV SCH (12:55)
[2021-07-21 12:56] LABS: ABG Base Excess 2.1 MMOL/L (-2.5-2.5); ABG HCO3 26.3 MMOL/L (20-26); ABG Oxygen Saturation 99.6 % (95-100); ABG PCO2 33.7 MM HG (35-48); ABG PH 7.483 (7.35-7.45)
[2021-07-21 17:00] LABS: Calcium 8.7 MG/DL (8.5-10.1)
[2021-07-21 17:01] LABS: Albumin 2.9 G/DL (3.4-5.0); Potassium 4.4 MMOL/L (3.5-5.1); Total Protein 5.4 G/DL (6.4-8.2)
[2021-07-21 17:03] LABS: Bilirubin,Total 12.1 MG/DL (0.20-1.00)
[2021-07-21] MEDS: FUROSEMIDE 40 MG/4 ML VIAL IV SCH (17:24)
[2021-07-21 17:28] LABS: Hemoglobin 10.1 GM/DL (12.0-16.0); Mean Corpuscular HGB Conc 32.6 GM/DL (32-36); Mean Corpuscular Volume 86.8 FL (87-102); Red Blood Count 3.57 MC/CUMM (3.8-5.5); Red Cell Distribution Width 17.1 % (9.3-17.3)
[2021-07-21 17:29] LABS: Platelet Count 33 T/CUMM (130-400)
[2021-07-21 17:30] LABS: Immature Granulocytes % 4.7 %; Immature Granulocytes Absolute 0.14 #; Lymphocytes # 0.2 10*3/uL (1.4-4.0); Lymphocytes % 5.1 % (21.3-54.2); Mean Platelet Volume 11.7 FL (9.6-12.0); Monocytes % 3.1 % (1.7-12.7); Neutrophils % 87.1 % (38.7-73.9)
[2021-07-21 17:31] LABS: Anisocytosis 2+; Band Neutrophils 2 % (0-10); Eosinophils 0 % (0-10); Lymphocytes 5 % (20-55); Macrocytosis Slight; Platelet Estimate Decreased; Segmented Neutrophils 88 % (50-85); Total Cells Counted 100
[2021-07-21] MEDS: METOPROLOL TARTRATE 5 MG/5 ML VIAL IV PRN (20:33)
[2021-07-21] MEDS: EZETIMIBE 10 MG TABLET PO SCH (21:07)
[2021-07-21 22:07] LABS: Basophils % 0.2 % (0.0-0.8); Hemoglobin 12.8 GM/DL (12.0-16.0); Immature Granulocytes % 1.4 %; Immature Granulocytes Absolute 0.08 #; Lymphocytes # 0.1 10*3/uL (1.4-4.0); Lymphocytes % 1.4 % (21.3-54.2); Mean Corpuscular HGB Conc 32.8 GM/DL (32-36); Mean Corpuscular Volume 85.2 FL (87-102); Mean Platelet Volume 11.6 FL (9.6-12.0); Monocytes % 2.9 % (1.7-12.7); NRBC # 0.17 10*3/uL; Neutrophils % 94.1 % (38.7-73.9); Platelet Count 41 T/CUMM (130-400); Red Blood Count 4.58 MC/CUMM (3.8-5.5); Red Cell Distribution Width 18.3 % (9.3-17.3); White Blood Count 5.5 T/CUMM (4-12)
[2021-07-21 22:29] LABS: Lymphocytes 3 % (20-55); Platelet Estimate Decreased; Segmented Neutrophils 93 % (50-85); Total Cells Counted 100
[2021-07-22] MEDS: INSULIN REGULAR 100 UNIT/ML SUBCUT SCH ×6 (00:47→20:51)
[2021-07-22] MEDS: METOCLOPRAMIDE 10 MG/2 ML VIAL IV SCH ×4 (00:47→17:56)
[2021-07-22] MEDS: ALBUTEROL/IPRATROPIUM 3 ML NEB RESP TX SCH ×4 (01:02→19:02)
[2021-07-22] MEDS: ACYCLOVIR INJ 250 MG in SODIUM CHLORIDE 0.9% 100 ML IV SCH ×3 (01:35→18:45)
[2021-07-22] MEDS: NOREPINEPHRINE 8 MG in SODIUM CHLORIDE 0.9% 242 ML IV PRN (02:11)
[2021-07-22] MEDS: fentaNYL INJ 1,250 MCG in SODIUM CHLORIDE 0.9% 225 ML IV PRN (03:06)
[2021-07-22 04:42] LABS: ABG Base Excess -0.2 MMOL/L (-2.5-2.5); ABG HCO3 23.5 MMOL/L (20-26); ABG Oxygen Saturation 94.2 % (95-100); ABG PCO2 35.3 MM HG (35-48); ABG PH 7.441 (7.35-7.45); ABG PO2 70.2 MM HG (80-95); ABG TCO2 24.6 MMOL/L (23-27)
[2021-07-22 04:57] LABS: Hematocrit 38.2 VOL% (35.7-47.0); Hemoglobin 12.7 GM/DL (12.0-16.0); Lymphocytes # 0.2 10*3/uL (1.4-4.0); Lymphocytes % 7.1 % (21.3-54.2); Mean Corpuscular HGB Conc 33.2 GM/DL (32-36); Mean Corpuscular Volume 85.3 FL (87-102); Monocytes % 3.7 % (1.7-12.7); NRBC # 0.08 10*3/uL; Neutrophils % 89.2 % (38.7-73.9); Red Blood Count 4.48 MC/CUMM (3.8-5.5); Red Cell Distribution Width 18.1 % (9.3-17.3); White Blood Count 2.4 T/CUMM (4-12)
[2021-07-22 05:06] LABS: INR 1.2; PT Patient Result 13.1 SECS (10.5-12.0)
[2021-07-22 05:07] LABS: Platelet Count 25 T/CUMM (130-400)
[2021-07-22 05:18] LABS: Band Neutrophils 3 % (0-10); Hypochromasia Slight; Lymphocytes 5 % (20-55); Nucleated Red Blood Cells 2 (0-5); Platelet Estimate Decreased; Segmented Neutrophils 86 % (50-85); Total Cells Counted 100
[2021-07-22] MEDS ORDERED: SODIUM CHLORIDE 0.9% 1,000 ML IV PRN (05:24)
[2021-07-22 05:25] LABS: Albumin 2.9 G/DL (3.4-5.0); Calcium 8.9 MG/DL (8.5-10.1); Osmolality,Calculated 311.1 MOS/KG (273-304); Potassium 3.7 MMOL/L (3.5-5.1); Total Protein 5.9 G/DL (6.4-8.2)
[2021-07-22 05:30] LABS: Bilirubin,Total 15.1 MG/DL (0.20-1.00)
[2021-07-22] MEDS: methylPREDNISolone SOD SUC 40 MG/1 ML VIAL IV SCH ×2 (09:53→22:34)
[2021-07-22] MEDS: FUROSEMIDE 40 MG/4 ML VIAL IV SCH (09:53)
[2021-07-22] MEDS: FONDAPARINUX 7.5 MG/0.6 ML SYRINGE SUBCUT SCH (09:53)
[2021-07-22] MEDS: CITALOPRAM 20 MG TABLET PO SCH (09:54)
[2021-07-22] MEDS: ASPIRIN CHEW 81 MG TABLET PO SCH (09:54)
[2021-07-22] MEDS: INSULIN GLARGINE 100 UNIT/ML SUBCUT SCH (09:54)
[2021-07-22] MEDS: FLUCONAZOLE INJ 200 MG/100 ML PREMIX IV SCH (09:55)
[2021-07-22] MEDS: DESITIN 4OZ/NYSTATIN 15 GRAM MIXTURE PASTE TOP SCH ×2 (09:56→21:26)
[2021-07-22] MEDS: rOPINIRole 0.25 MG TABLET PO SCH ×4 (10:02→20:41)
[2021-07-22] MEDS: AMIODARONE 200 MG TABLET PO SCH ×2 (10:03→20:41)
[2021-07-22] MEDS ORDERED: SODIUM HYPOCHLORITE 0.25% IRR 1 APPLIC in IV BAG 1 EACH IRRIG PRN (12:17)
[2021-07-22] MEDS: FAMOTIDINE 20 MG/2 ML VIAL IV SCH (12:43)
[2021-07-22] MEDS: MEROPENEM 500 MG in SODIUM CHLORIDE 0.9% 100 ML IV SCH (17:48)
[2021-07-22] MEDS: EZETIMIBE 10 MG TABLET PO SCH (20:40)
[2021-07-23] MEDS: METOCLOPRAMIDE 10 MG/2 ML VIAL IV SCH ×4 (00:21→19:28)
[2021-07-23] MEDS: ACYCLOVIR INJ 250 MG in SODIUM CHLORIDE 0.9% 100 ML IV SCH ×3 (00:22→16:29)
[2021-07-23] MEDS: INSULIN REGULAR 100 UNIT/ML SUBCUT SCH ×6 (00:31→21:01)
[2021-07-23] MEDS: ALBUTEROL/IPRATROPIUM 3 ML NEB RESP TX SCH ×4 (01:00→19:00)
[2021-07-23 04:09] LABS: Hematocrit 31.2 VOL% (35.7-47.0); Lymphocytes # 0.1 10*3/uL (1.4-4.0); Lymphocytes % 4.6 % (21.3-54.2); Mean Corpuscular HGB Conc 33.3 GM/DL (32-36); Mean Corpuscular Volume 84.1 FL (87-102); Mean Platelet Volume 10.8 FL (9.6-12.0); Monocytes % 3.1 % (1.7-12.7); NRBC # 0.06 10*3/uL; Neutrophils % 92.3 % (38.7-73.9); Red Blood Count 3.71 MC/CUMM (3.8-5.5); Red Cell Distribution Width 18.1 % (9.3-17.3)
[2021-07-23 04:21] LABS: ABG Base Excess 2.7 MMOL/L (-2.5-2.5); ABG HCO3 25.5 MMOL/L (20-26); ABG Oxygen Saturation 98.6 % (95-100); ABG PCO2 33.3 MM HG (35-48); ABG PH 7.502 (7.35-7.45); ABG TCO2 26.5 MMOL/L (23-27)
[2021-07-23 04:28] LABS: Hemoglobin 10.4 GM/DL (12.0-16.0)
[2021-07-23 04:30] LABS: Platelet Count 14 T/CUMM (130-400)
[2021-07-23 04:37] LABS: Band Neutrophils 5 % (0-10); Hypochromasia Slight; Lymphocytes 5 % (20-55); Microcytosis Slight; Nucleated Red Blood Cells 3 (0-5); Platelet Estimate Decreased; Segmented Neutrophils 89 % (50-85); Total Cells Counted 100
[2021-07-23 04:38] LABS: Albumin 2.3 G/DL (3.4-5.0); Calcium 8.5 MG/DL (8.5-10.1); Osmolality,Calculated 315.5 MOS/KG (273-304); Potassium 3.1 MMOL/L (3.5-5.1); Total Protein 5.2 G/DL (6.4-8.2)
[2021-07-23 04:40] LABS: Bilirubin,Total 13.9 MG/DL (0.20-1.00)
[2021-07-23] MEDS: POTASSIUM CHLORIDE RIDER 10 MEQ/100 ML PREMIX IV PRN ×7 (04:48→23:17)
[2021-07-23] MEDS ORDERED: SODIUM CHLORIDE 0.9% 1,000 ML IV PRN (04:56)
[2021-07-23] MEDS: MEROPENEM 500 MG in SODIUM CHLORIDE 0.9% 100 ML IV SCH ×2 (05:12→16:29)
[2021-07-23] MEDS ORDERED: FONDAPARINUX 7.5 MG/0.6 ML SYRINGE SUBCUT SCH (09:00)
[2021-07-23] MEDS: INSULIN GLARGINE 100 UNIT/ML SUBCUT SCH (09:47)
[2021-07-23] MEDS: rOPINIRole 0.25 MG TABLET PO SCH ×4 (09:47→21:01)
[2021-07-23] MEDS: FUROSEMIDE 40 MG/4 ML VIAL IV SCH (09:47)
[2021-07-23] MEDS: AMIODARONE 200 MG TABLET PO SCH ×2 (09:48→21:01)
[2021-07-23] MEDS: CITALOPRAM 20 MG TABLET PO SCH (09:48)
[2021-07-23] MEDS: FLUCONAZOLE INJ 200 MG/100 ML PREMIX IV SCH (10:30)
[2021-07-23] MEDS: ASPIRIN CHEW 81 MG TABLET PO SCH (10:30)
[2021-07-23] MEDS: DESITIN 4OZ/NYSTATIN 15 GRAM MIXTURE PASTE TOP SCH ×2 (10:30→21:12)
[2021-07-23] MEDS: methylPREDNISolone SOD SUC 40 MG/1 ML VIAL IV SCH ×2 (12:34→22:35)
[2021-07-23] MEDS: FAMOTIDINE 20 MG/2 ML VIAL IV SCH (12:35)
[2021-07-23] MEDS: fentaNYL INJ 1,250 MCG in SODIUM CHLORIDE 0.9% 225 ML IV PRN (13:09)
[2021-07-23 20:17] LABS: Basophils % 0.3 % (0.0-0.8); Hematocrit 25.7 VOL% (35.7-47.0); Hemoglobin 8.6 GM/DL (12.0-16.0); Immature Granulocytes % 0.3 %; Immature Granulocytes Absolute 0.01 #; Lymphocytes # 0.1 10*3/uL (1.4-4.0); Lymphocytes % 3.7 % (21.3-54.2); Mean Corpuscular HGB Conc 33.5 GM/DL (32-36); Mean Corpuscular Volume 84.8 FL (87-102); Mean Platelet Volume 10.4 FL (9.6-12.0); Monocytes % 2.8 % (1.7-12.7); NRBC # 0.08 10*3/uL; Neutrophils % 92.9 % (38.7-73.9); Platelet Count 45 T/CUMM (130-400); Red Blood Count 3.03 MC/CUMM (3.8-5.5); Red Cell Distribution Width 18.4 % (9.3-17.3); White Blood Count 3.3 T/CUMM (4-12)
[2021-07-23] MEDS: EZETIMIBE 10 MG TABLET PO SCH (21:00)
[2021-07-23 21:03] LABS: Lymphocytes 2 % (20-55); Myelocytes 2 %; Nucleated Red Blood Cells 2 (0-5); Segmented Neutrophils 95 % (50-85); Total Cells Counted 100
[2021-07-23 21:04] LABS: Anisocytosis 2+
[2021-07-23 21:05] LABS: Platelet Estimate Increased; Polychromasia 1+; Toxic Granulation 2+
[2021-07-23] MEDS: valACYclovir 500 MG TABLET PO SCH (21:24)
[2021-07-24] MEDS: fentaNYL INJ 1,250 MCG in SODIUM CHLORIDE 0.9% 225 ML IV PRN ×3 (00:55→17:05)
[2021-07-24] MEDS: ALBUTEROL/IPRATROPIUM 3 ML NEB RESP TX SCH ×4 (01:00→19:40)
[2021-07-24] MEDS: METOCLOPRAMIDE 10 MG/2 ML VIAL IV SCH ×4 (01:25→17:00)
[2021-07-24] MEDS: POTASSIUM CHLORIDE RIDER 10 MEQ/100 ML PREMIX IV PRN (01:26)
[2021-07-24] MEDS: INSULIN REGULAR 100 UNIT/ML SUBCUT SCH ×6 (01:26→22:20)
[2021-07-24 01:37] LABS: Basophils % 0.2 % (0.0-0.8); Hematocrit 31.8 VOL% (35.7-47.0); Immature Granulocytes % 0.2 %; Immature Granulocytes Absolute 0.01 #; Lymphocytes # 0.1 10*3/uL (1.4-4.0); Lymphocytes % 1.8 % (21.3-54.2); Mean Corpuscular HGB Conc 32.7 GM/DL (32-36); Mean Corpuscular Volume 85.7 FL (87-102); Mean Platelet Volume 12.5 FL (9.6-12.0); NRBC # 0.12 10*3/uL; Neutrophils % 95.8 % (38.7-73.9); Red Blood Count 3.71 MC/CUMM (3.8-5.5); Red Cell Distribution Width 19.1 % (9.3-17.3); White Blood Count 6.5 T/CUMM (4-12)
[2021-07-24 01:56] LABS: Hemoglobin 10.4 GM/DL (12.0-16.0); Platelet Count 38 T/CUMM (130-400)
[2021-07-24 01:59] LABS: Band Neutrophils 1 % (0-10); Lymphocytes 1 % (20-55); Nucleated Red Blood Cells 5 (0-5); Platelet Estimate Decreased; Segmented Neutrophils 96 % (50-85); Total Cells Counted 100
[2021-07-24 03:24] LABS: ABG HCO3 27.7 MMOL/L (20-26); ABG Oxygen Saturation 99.4 % (95-100); ABG PCO2 48.2 MM HG (35-48); ABG PH 7.377 (7.35-7.45); ABG PO2 325.7 MM HG (80-95); ABG TCO2 29.2 MMOL/L (23-27)
[2021-07-24 04:43] LABS: Hematocrit 27.7 VOL% (35.7-47.0); Hemoglobin 9.1 GM/DL (12.0-16.0); Immature Granulocytes % 0.4 %; Immature Granulocytes Absolute 0.02 #; Lymphocytes # 0.2 10*3/uL (1.4-4.0); Lymphocytes % 2.8 % (21.3-54.2); Mean Corpuscular HGB Conc 32.9 GM/DL (32-36); Mean Platelet Volume 11.3 FL (9.6-12.0); Monocytes % 2.2 % (1.7-12.7); NRBC # 0.09 10*3/uL; Neutrophils % 94.6 % (38.7-73.9); Red Blood Count 3.22 MC/CUMM (3.8-5.5); Red Cell Distribution Width 18.6 % (9.3-17.3); White Blood Count 5.4 T/CUMM (4-12)
[2021-07-24] MEDS: MEROPENEM 500 MG in SODIUM CHLORIDE 0.9% 100 ML IV SCH ×2 (04:54→17:04)
[2021-07-24 04:58] LABS: Albumin 2.1 G/DL (3.4-5.0); Calcium 8.4 MG/DL (8.5-10.1); Osmolality,Calculated 315.3 MOS/KG (273-304); Potassium 4.1 MMOL/L (3.5-5.1); Total Protein 5.1 G/DL (6.4-8.2)
[2021-07-24 05:13] LABS: Platelet Count 26 T/CUMM (130-400)
[2021-07-24 05:22] LABS: Bilirubin,Total 15.3 MG/DL (0.20-1.00)
[2021-07-24 05:41] LABS: Hypochromasia 1+; Lymphocytes 6 % (20-55); Microcytosis 1+; Nucleated Red Blood Cells 1 (0-5); Platelet Estimate Decreased; Segmented Neutrophils 94 % (50-85); Total Cells Counted 100
[2021-07-24] MEDS: FUROSEMIDE 40 MG/4 ML VIAL IV SCH (08:40)
[2021-07-24] MEDS: rOPINIRole 0.25 MG TABLET PO SCH ×4 (08:47→21:32)
[2021-07-24] MEDS: valACYclovir 500 MG TABLET PO SCH ×2 (08:47→21:32)
[2021-07-24] MEDS: CITALOPRAM 20 MG TABLET PO SCH (08:48)
[2021-07-24] MEDS: INSULIN GLARGINE 100 UNIT/ML SUBCUT SCH (08:48)
[2021-07-24] MEDS: AMIODARONE 200 MG TABLET PO SCH ×2 (08:48→22:20)
[2021-07-24] MEDS: DESITIN 4OZ/NYSTATIN 15 GRAM MIXTURE PASTE TOP SCH ×2 (08:49→21:33)
[2021-07-24] MEDS: FLUCONAZOLE INJ 200 MG/100 ML PREMIX IV SCH (09:13)
[2021-07-24] MEDS: methylPREDNISolone SOD SUC 40 MG/1 ML VIAL IV SCH ×2 (09:40→22:20)
[2021-07-24] MEDS: FAMOTIDINE 20 MG/2 ML VIAL IV SCH (12:18)
[2021-07-24] MEDS: MIDAZOLAM 100 MG in SODIUM CHLORIDE 0.9% 80 ML IV PRN (13:33)
[2021-07-24] MEDS: EZETIMIBE 10 MG TABLET PO SCH (21:32)
[2021-07-25] MEDS: METOCLOPRAMIDE 10 MG/2 ML VIAL IV SCH ×4 (00:06→19:46)
[2021-07-25] MEDS: INSULIN REGULAR 100 UNIT/ML SUBCUT SCH ×6 (00:20→20:52)
[2021-07-25] MEDS: fentaNYL INJ 1,250 MCG in SODIUM CHLORIDE 0.9% 225 ML IV PRN ×3 (00:23→18:40)
[2021-07-25] MEDS: ALBUTEROL/IPRATROPIUM 3 ML NEB RESP TX SCH ×4 (00:30→19:00)
[2021-07-25 04:12] LABS: ABG Base Excess 3.4 MMOL/L (-2.5-2.5); ABG HCO3 27.5 MMOL/L (20-26); ABG Oxygen Saturation 99.6 % (95-100); ABG PCO2 41.7 MM HG (35-48); ABG PH 7.434 (7.35-7.45); ABG TCO2 25.5 MMOL/L (23-27); Allen Test Positive; Pt O2 Delivery Device Ventilator
[2021-07-25 05:10] LABS: Hemoglobin 8.7 GM/DL (12.0-16.0); Immature Granulocytes % 0.4 %; Immature Granulocytes Absolute 0.02 #; Lymphocytes # 0.1 10*3/uL (1.4-4.0); Mean Corpuscular HGB Conc 32.2 GM/DL (32-36); Mean Corpuscular Volume 86.8 FL (87-102); Monocytes % 1.8 % (1.7-12.7); NRBC # 0.08 10*3/uL; Neutrophils % 95.8 % (38.7-73.9); Red Blood Count 3.11 MC/CUMM (3.8-5.5); Red Cell Distribution Width 19.1 % (9.3-17.3); White Blood Count 5.6 T/CUMM (4-12)
[2021-07-25 05:13] LABS: Platelet Count 15 T/CUMM (130-400)
[2021-07-25 05:32] LABS: Albumin 1.9 G/DL (3.4-5.0); Calcium 8.6 MG/DL (8.5-10.1); Osmolality,Calculated 317.1 MOS/KG (273-304); Potassium 4.2 MMOL/L (3.5-5.1); Total Protein 4.8 G/DL (6.4-8.2)
[2021-07-25 05:34] LABS: Bilirubin,Total 15.3 MG/DL (0.20-1.00)
[2021-07-25 05:36] LABS: Lymphocytes 4 % (20-55); Platelet Estimate Decreased; Segmented Neutrophils 94 % (50-85); Total Cells Counted 100
[2021-07-25 05:37] LABS: Hypochromasia 1+; Microcytosis 1+
[2021-07-25] MEDS: MEROPENEM 500 MG in SODIUM CHLORIDE 0.9% 100 ML IV SCH (07:10)
[2021-07-25] MEDS: rOPINIRole 0.25 MG TABLET PO SCH ×4 (09:23→20:52)
[2021-07-25] MEDS: FUROSEMIDE 40 MG/4 ML VIAL IV SCH (09:23)
[2021-07-25] MEDS: valACYclovir 500 MG TABLET PO SCH ×2 (09:23→20:52)
[2021-07-25] MEDS: AMIODARONE 200 MG TABLET PO SCH ×2 (09:24→20:52)
[2021-07-25] MEDS: CITALOPRAM 20 MG TABLET PO SCH (09:24)
[2021-07-25] MEDS: INSULIN GLARGINE 100 UNIT/ML SUBCUT SCH (09:24)
[2021-07-25] MEDS: DESITIN 4OZ/NYSTATIN 15 GRAM MIXTURE PASTE TOP SCH ×2 (09:25→20:52)
[2021-07-25] MEDS: FLUCONAZOLE INJ 200 MG/100 ML PREMIX IV SCH (09:26)
[2021-07-25] MEDS: NOREPINEPHRINE 8 MG in SODIUM CHLORIDE 0.9% 242 ML IV PRN (09:55)
[2021-07-25] MEDS: methylPREDNISolone SOD SUC 40 MG/1 ML VIAL IV SCH ×2 (12:13→22:44)
[2021-07-25] MEDS: FAMOTIDINE 20 MG/2 ML VIAL IV SCH (12:13)
[2021-07-25] MEDS: cefTRIAXone 1,000 MG in SODIUM CHLORIDE 0.9% 100 ML IV SCH (12:14)
[2021-07-25 18:56] LABS: HIT Interpretation Negative (Negative)
[2021-07-25] MEDS: EZETIMIBE 10 MG TABLET PO SCH (20:52)
[2021-07-26] MEDS: fentaNYL INJ 1,250 MCG in SODIUM CHLORIDE 0.9% 225 ML IV PRN ×3 (02:51→20:45)
[2021-07-26] MEDS: METOCLOPRAMIDE 10 MG/2 ML VIAL IV SCH ×4 (03:25→18:21)
[2021-07-26] MEDS: INSULIN REGULAR 100 UNIT/ML SUBCUT SCH ×6 (03:28→23:49)
[2021-07-26] MEDS: ALBUTEROL/IPRATROPIUM 3 ML NEB RESP TX SCH ×5 (04:00→21:00)
[2021-07-26 04:26] LABS: ABG Base Excess 1.7 MMOL/L (-2.5-2.5); ABG HCO3 25.9 MMOL/L (20-26); ABG PCO2 54.1 MM HG (35-48); ABG TCO2 26.1 MMOL/L (23-27)
[2021-07-26 05:25] LABS: Basophils % 0.1 % (0.0-0.8); Hematocrit 32.5 VOL% (35.7-47.0); Hemoglobin 10.5 GM/DL (12.0-16.0); Immature Granulocytes % 0.5 %; Immature Granulocytes Absolute 0.04 #; Lymphocytes # 0.1 10*3/uL (1.4-4.0); Lymphocytes % 1.9 % (21.3-54.2); Mean Corpuscular HGB Conc 32.3 GM/DL (32-36); Mean Corpuscular Volume 87.4 FL (87-102); NRBC # 0.07 10*3/uL; Neutrophils % 95.5 % (38.7-73.9); Red Blood Count 3.72 MC/CUMM (3.8-5.5); Red Cell Distribution Width 19.9 % (9.3-17.3); White Blood Count 7.4 T/CUMM (4-12)
[2021-07-26 05:30] LABS: Platelet Count 17 T/CUMM (130-400)
[2021-07-26 05:49] LABS: Albumin 2.1 G/DL (3.4-5.0); Calcium 8.9 MG/DL (8.5-10.1); Osmolality,Calculated 315.1 MOS/KG (273-304); Total Protein 5.8 G/DL (6.4-8.2)
[2021-07-26 05:55] LABS: Band Neutrophils 1 % (0-10); Hypochromasia Slight; Lymphocytes 3 % (20-55); Platelet Estimate Decreased; Segmented Neutrophils 93 % (50-85); Total Cells Counted 100
[2021-07-26 05:58] LABS: Bilirubin,Total 17.9 MG/DL (0.20-1.00)
[2021-07-26] MEDS: CITALOPRAM 20 MG TABLET PO SCH (08:38)
[2021-07-26] MEDS: FUROSEMIDE 40 MG/4 ML VIAL IV SCH (08:38)
[2021-07-26] MEDS: rOPINIRole 0.25 MG TABLET PO SCH ×4 (08:38→21:50)
[2021-07-26] MEDS: valACYclovir 500 MG TABLET PO SCH ×2 (08:38→21:50)
[2021-07-26] MEDS: AMIODARONE 200 MG TABLET PO SCH (08:38)
[2021-07-26] MEDS: INSULIN GLARGINE 100 UNIT/ML SUBCUT SCH (08:39)
[2021-07-26] MEDS: DESITIN 4OZ/NYSTATIN 15 GRAM MIXTURE PASTE TOP SCH ×2 (08:39→21:50)
[2021-07-26] MEDS: cefTRIAXone 1,000 MG in SODIUM CHLORIDE 0.9% 100 ML IV SCH (09:21)
[2021-07-26] MEDS: FLUCONAZOLE INJ 200 MG/100 ML PREMIX IV SCH (10:14)
[2021-07-26] MEDS: methylPREDNISolone SOD SUC 40 MG/1 ML VIAL IV SCH ×2 (10:14→21:46)
[2021-07-26] MEDS: FAMOTIDINE 20 MG/2 ML VIAL IV SCH (11:56)
[2021-07-26] MEDS: EZETIMIBE 10 MG TABLET PO SCH (21:50)
[2021-07-27] MEDS: METOCLOPRAMIDE 10 MG/2 ML VIAL IV SCH ×4 (00:39→18:12)
[2021-07-27] MEDS: INSULIN REGULAR 100 UNIT/ML SUBCUT SCH ×6 (01:30→20:09)
[2021-07-27 03:59] LABS: ABG Base Excess 2.5 MMOL/L (-2.5-2.5); ABG HCO3 26.7 MMOL/L (20-26); ABG Oxygen Saturation 99.1 % (95-100); ABG PCO2 36.3 MM HG (35-48); ABG PH 7.464 (7.35-7.45); ABG TCO2 22.7 MMOL/L (23-27)
[2021-07-27 04:03] LABS: Basophils % 0.2 % (0.0-0.8); Hematocrit 27.4 VOL% (35.7-47.0); Immature Granulocytes % 0.5 %; Immature Granulocytes Absolute 0.03 #; Lymphocytes # 0.1 10*3/uL (1.4-4.0); Lymphocytes % 2.3 % (21.3-54.2); Mean Corpuscular HGB Conc 32.8 GM/DL (32-36); Mean Corpuscular Volume 86.2 FL (87-102); Monocytes % 1.8 % (1.7-12.7); NRBC # 0.04 10*3/uL; Neutrophils % 95.2 % (38.7-73.9); Red Blood Count 3.18 MC/CUMM (3.8-5.5); Red Cell Distribution Width 19.4 % (9.3-17.3); White Blood Count 6.1 T/CUMM (4-12)
[2021-07-27 04:07] LABS: Platelet Count 13 T/CUMM (130-400)
[2021-07-27 04:15] LABS: INR 1.3; PT Patient Result 13.9 SECS (10.5-12.0); Partial Thromboplastin Time 31.1 SECS (23.8-32.1)
[2021-07-27 04:21] LABS: Albumin 1.8 G/DL (3.4-5.0); Calcium 8.3 MG/DL (8.5-10.1); Osmolality,Calculated 322.8 MOS/KG (273-304); Potassium 4.1 MMOL/L (3.5-5.1)
[2021-07-27 04:22] LABS: Bilirubin,Total 15.4 MG/DL (0.20-1.00)
[2021-07-27 04:25] LABS: Lymphocytes 3 % (20-55); Platelet Estimate Decreased; Segmented Neutrophils 96 % (50-85); Total Cells Counted 100
[2021-07-27 04:26] LABS: Hypochromasia 1+; Microcytosis 1+
[2021-07-27] MEDS: fentaNYL INJ 1,250 MCG in SODIUM CHLORIDE 0.9% 225 ML IV PRN ×2 (05:02→13:04)
[2021-07-27] MEDS ORDERED: MIDAZOLAM 100 MG in SODIUM CHLORIDE 0.9% 80 ML IV SCH (05:30)
[2021-07-27] MEDS: ALBUTEROL/IPRATROPIUM 3 ML NEB RESP TX SCH ×3 (07:07→19:00)
[2021-07-27] MEDS: MIDAZOLAM 100 MG in SODIUM CHLORIDE 0.9% 80 ML IV PRN (08:15)
[2021-07-27] MEDS: rOPINIRole 0.25 MG TABLET PO SCH ×4 (09:36→20:10)
[2021-07-27] MEDS: INSULIN GLARGINE 100 UNIT/ML SUBCUT SCH (09:36)
[2021-07-27] MEDS: CITALOPRAM 20 MG TABLET PO SCH (09:36)
[2021-07-27] MEDS: valACYclovir 500 MG TABLET PO SCH ×2 (09:36→20:09)
[2021-07-27] MEDS: methylPREDNISolone SOD SUC 40 MG/1 ML VIAL IV SCH ×2 (09:37→21:53)
[2021-07-27] MEDS: cefTRIAXone 1,000 MG in SODIUM CHLORIDE 0.9% 100 ML IV SCH (09:37)
[2021-07-27] MEDS: FLUCONAZOLE INJ 200 MG/100 ML PREMIX IV SCH (09:38)
[2021-07-27] MEDS: DESITIN 4OZ/NYSTATIN 15 GRAM MIXTURE PASTE TOP SCH ×2 (10:50→20:10)
[2021-07-27] MEDS: ALBUMIN 25% 12.5 GM/50 ML VIAL IV SCH ×2 (11:39→18:13)
[2021-07-27] MEDS: FAMOTIDINE 20 MG/2 ML VIAL IV SCH (13:04)
[2021-07-27] MEDS: NOREPINEPHRINE 8 MG in SODIUM CHLORIDE 0.9% 242 ML IV PRN (17:00)
[2021-07-27] MEDS: EZETIMIBE 10 MG TABLET PO SCH (20:10)
[2021-07-28] MEDS: ALBUMIN 25% 12.5 GM/50 ML VIAL IV SCH ×3 (00:30→16:52)
[2021-07-28] MEDS: METOCLOPRAMIDE 10 MG/2 ML VIAL IV SCH ×4 (00:30→17:01)
[2021-07-28] MEDS: INSULIN REGULAR 100 UNIT/ML SUBCUT SCH ×6 (00:31→19:58)
[2021-07-28] MEDS: ALBUTEROL/IPRATROPIUM 3 ML NEB RESP TX SCH ×4 (01:00→19:00)
[2021-07-28] MEDS: fentaNYL INJ 1,250 MCG in SODIUM CHLORIDE 0.9% 225 ML IV PRN ×2 (01:10→13:33)
[2021-07-28 03:49] LABS: Basophils % 0.2 % (0.0-0.8); Hematocrit 22.4 VOL% (35.7-47.0); Hemoglobin 7.3 GM/DL (12.0-16.0); Immature Granulocytes % 3.1 %; Immature Granulocytes Absolute 0.14 #; Lymphocytes # 0.1 10*3/uL (1.4-4.0); Mean Corpuscular HGB Conc 32.6 GM/DL (32-36); Mean Corpuscular Volume 87.5 FL (87-102); Monocytes % 1.5 % (1.7-12.7); NRBC # 0.04 10*3/uL; Neutrophils % 93.2 % (38.7-73.9); Red Blood Count 2.56 MC/CUMM (3.8-5.5); Red Cell Distribution Width 19.7 % (9.3-17.3); White Blood Count 4.6 T/CUMM (4-12)
[2021-07-28 03:54] LABS: Platelet Count 11 T/CUMM (130-400)
[2021-07-28 04:05] LABS: Albumin 2.3 G/DL (3.4-5.0); Calcium 8.1 MG/DL (8.5-10.1); Osmolality,Calculated 327.6 MOS/KG (273-304); Total Protein 4.9 G/DL (6.4-8.2)
[2021-07-28 04:06] LABS: Bilirubin,Total 13.9 MG/DL (0.20-1.00)
[2021-07-28 04:08] LABS: Lymphocytes 1 % (20-55); Nucleated Red Blood Cells 2 (0-5); Segmented Neutrophils 96 % (50-85); Total Cells Counted 100
[2021-07-28 04:09] LABS: Hypochromasia 1+; Microcytosis 1+; Platelet Estimate Decreased
[2021-07-28 04:30] LABS: ABG Base Excess 1.6 MMOL/L (-2.5-2.5); ABG HCO3 25.8 MMOL/L (20-26); ABG Oxygen Saturation 99.5 % (95-100); ABG PCO2 36.9 MM HG (35-48); ABG PH 7.448 (7.35-7.45); ABG TCO2 23.9 MMOL/L (23-27)
[2021-07-28] MEDS: rOPINIRole 0.25 MG TABLET PO SCH ×4 (09:16→21:53)
[2021-07-28] MEDS: INSULIN GLARGINE 100 UNIT/ML SUBCUT SCH (09:16)
[2021-07-28] MEDS: DESITIN 4OZ/NYSTATIN 15 GRAM MIXTURE PASTE TOP SCH ×2 (09:16→21:53)
[2021-07-28] MEDS: valACYclovir 500 MG TABLET PO SCH ×2 (09:16→21:53)
[2021-07-28] MEDS: CITALOPRAM 20 MG TABLET PO SCH (09:16)
[2021-07-28] MEDS: cefTRIAXone 1,000 MG in SODIUM CHLORIDE 0.9% 100 ML IV SCH (09:30)
[2021-07-28] MEDS: methylPREDNISolone SOD SUC 40 MG/1 ML VIAL IV SCH ×2 (09:30→21:52)
[2021-07-28] MEDS ORDERED: LACTATED RINGERS 500 ML IV ONE (10:14)
[2021-07-28] MEDS: FAMOTIDINE 20 MG/2 ML VIAL IV SCH (12:22)
[2021-07-28] MEDS: EZETIMIBE 10 MG TABLET PO SCH (21:53)
[2021-07-29] MEDS: INSULIN REGULAR 100 UNIT/ML SUBCUT SCH ×6 (00:31→20:12)
[2021-07-29] MEDS: METOCLOPRAMIDE 10 MG/2 ML VIAL IV SCH ×4 (00:31→17:32)
[2021-07-29] MEDS: ALBUMIN 25% 12.5 GM/50 ML VIAL IV SCH ×3 (00:31→17:34)
[2021-07-29] MEDS: ALBUTEROL/IPRATROPIUM 3 ML NEB RESP TX SCH ×4 (01:00→19:30)
[2021-07-29] MEDS: MIDAZOLAM 100 MG in SODIUM CHLORIDE 0.9% 80 ML IV PRN (02:25)
[2021-07-29] MEDS: fentaNYL INJ 1,250 MCG in SODIUM CHLORIDE 0.9% 225 ML IV PRN ×3 (03:08→17:38)
[2021-07-29 03:28] LABS: Hematocrit 24.3 VOL% (35.7-47.0); Hemoglobin 7.9 GM/DL (12.0-16.0); Immature Granulocytes % 0.9 %; Immature Granulocytes Absolute 0.06 #; Lymphocytes # 0.2 10*3/uL (1.4-4.0); Lymphocytes % 2.4 % (21.3-54.2); Mean Corpuscular HGB Conc 32.5 GM/DL (32-36); Mean Corpuscular Volume 89.7 FL (87-102); Monocytes % 1.5 % (1.7-12.7); NRBC # 0.04 10*3/uL; Neutrophils % 95.2 % (38.7-73.9); Red Blood Count 2.71 MC/CUMM (3.8-5.5); Red Cell Distribution Width 21.2 % (9.3-17.3)
[2021-07-29 03:41] LABS: White Blood Count 6.8 T/CUMM (4-12)
[2021-07-29 03:43] LABS: Platelet Count 13 T/CUMM (130-400)
[2021-07-29 03:49] LABS: Hypochromasia 1+; Lymphocytes 2 % (20-55); Microcytosis 1+; Platelet Estimate Decreased; Segmented Neutrophils 97 % (50-85); Total Cells Counted 100
[2021-07-29 03:50] LABS: Albumin 3.1 G/DL (3.4-5.0); Calcium 8.5 MG/DL (8.5-10.1); Osmolality,Calculated 332.4 MOS/KG (273-304); Potassium 4.1 MMOL/L (3.5-5.1); Total Protein 5.7 G/DL (6.4-8.2)
[2021-07-29 03:52] LABS: Bilirubin,Total 14.7 MG/DL (0.20-1.00)
[2021-07-29 05:01] LABS: ABG Base Excess -0.3 MMOL/L (-2.5-2.5); ABG Oxygen Saturation 99.1 % (95-100); ABG PCO2 37.3 MM HG (35-48); ABG PH 7.426 (7.35-7.45); ABG PO2 196.9 MM HG (80-95); ABG TCO2 25.1 MMOL/L (23-27)
[2021-07-29] MEDS: INSULIN GLARGINE 100 UNIT/ML SUBCUT SCH (08:49)
[2021-07-29] MEDS: CITALOPRAM 20 MG TABLET PO SCH (08:50)
[2021-07-29] MEDS: rOPINIRole 0.25 MG TABLET PO SCH ×4 (08:50→20:11)
[2021-07-29] MEDS: valACYclovir 500 MG TABLET PO SCH ×2 (08:50→20:12)
[2021-07-29] MEDS: DESITIN 4OZ/NYSTATIN 15 GRAM MIXTURE PASTE TOP SCH ×2 (09:00→20:12)
[2021-07-29] MEDS ORDERED: SODIUM CHLORIDE 0.9% 1,000 ML IV PRN (10:03)
[2021-07-29] MEDS: methylPREDNISolone SOD SUC 40 MG/1 ML VIAL IV SCH ×2 (10:44→21:41)
[2021-07-29] MEDS: FAMOTIDINE 20 MG/2 ML VIAL IV SCH (12:36)
[2021-07-29] MEDS: cefTRIAXone 1,000 MG in SODIUM CHLORIDE 0.9% 100 ML IV SCH (12:38)
[2021-07-29] MEDS: EZETIMIBE 10 MG TABLET PO SCH (20:11)
[2021-07-30] MEDS: ALBUTEROL/IPRATROPIUM 3 ML NEB RESP TX SCH ×4 (00:12→19:55)
[2021-07-30] MEDS: INSULIN REGULAR 100 UNIT/ML SUBCUT SCH ×6 (00:44→20:06)
[2021-07-30] MEDS: METOCLOPRAMIDE 10 MG/2 ML VIAL IV SCH ×4 (00:44→17:35)
[2021-07-30] MEDS: fentaNYL INJ 1,250 MCG in SODIUM CHLORIDE 0.9% 225 ML IV PRN ×2 (00:47→08:30)
[2021-07-30] MEDS: ALBUMIN 25% 12.5 GM/50 ML VIAL IV SCH ×3 (02:00→17:37)
[2021-07-30 03:26] LABS: ABG Base Excess -1.8 MMOL/L (-2.5-2.5); ABG HCO3 22.8 MMOL/L (20-26); ABG Oxygen Saturation 95.9 % (95-100); ABG PCO2 51.5 MM HG (35-48); ABG PH 7.291 (7.35-7.45); ABG PO2 86.4 MM HG (80-95); ABG TCO2 23.7 MMOL/L (23-27); Allen Test Positive; Pt O2 Delivery Device Ventilator
[2021-07-30 04:22] LABS: Hematocrit 21.3 VOL% (35.7-47.0); Hemoglobin 6.7 GM/DL (12.0-16.0); Immature Granulocytes % 1.5 %; Immature Granulocytes Absolute 0.07 #; Lymphocytes # 0.1 10*3/uL (1.4-4.0); Lymphocytes % 1.9 % (21.3-54.2); Mean Corpuscular HGB Conc 31.5 GM/DL (32-36); Mean Corpuscular Volume 92.2 FL (87-102); Mean Platelet Volume 11.4 FL (9.6-12.0); Monocytes % 1.3 % (1.7-12.7); NRBC # 0.05 10*3/uL; Neutrophils % 95.3 % (38.7-73.9); Red Blood Count 2.31 MC/CUMM (3.8-5.5); Red Cell Distribution Width 21.6 % (9.3-17.3); White Blood Count 4.6 T/CUMM (4-12)
[2021-07-30 04:28] LABS: Platelet Count 21 T/CUMM (130-400)
[2021-07-30 04:38] LABS: Albumin 3.3 G/DL (3.4-5.0); Bilirubin,Total 11.8 MG/DL (0.20-1.00); Calcium 8.3 MG/DL (8.5-10.1); Total Protein 5.9 G/DL (6.4-8.2)
[2021-07-30] MEDS ORDERED: SODIUM CHLORIDE 0.9% 1,000 ML IV PRN ×3 (04:38→05:17)
[2021-07-30 04:44] LABS: Hypochromasia 2+; Lymphocytes 3 % (20-55); Microcytosis 1+; Nucleated Red Blood Cells 1 (0-5); Platelet Estimate Decreased; Segmented Neutrophils 96 % (50-85); Total Cells Counted 100
[2021-07-30] MEDS: MIDAZOLAM 100 MG in SODIUM CHLORIDE 0.9% 80 ML IV PRN (08:14)
[2021-07-30] MEDS: INSULIN GLARGINE 100 UNIT/ML SUBCUT SCH (08:47)
[2021-07-30] MEDS: valACYclovir 500 MG TABLET PO SCH ×2 (08:47→20:07)
[2021-07-30] MEDS: rOPINIRole 0.25 MG TABLET PO SCH ×4 (08:47→20:07)
[2021-07-30] MEDS: DESITIN 4OZ/NYSTATIN 15 GRAM MIXTURE PASTE TOP SCH ×2 (08:48→21:48)
[2021-07-30] MEDS: CITALOPRAM 20 MG TABLET PO SCH (08:48)
[2021-07-30] MEDS ORDERED: fentaNYL INJ 1,250 MCG in SODIUM CHLORIDE 0.9% 225 ML IV PRN (08:57)
[2021-07-30] MEDS: methylPREDNISolone SOD SUC 40 MG/1 ML VIAL IV SCH ×2 (10:00→22:37)
[2021-07-30] MEDS ORDERED: MIDAZOLAM 100 MG in DEXTROSE 5% 80 ML IV PRN (10:35)
[2021-07-30] MEDS ORDERED: POTASSIUM BICARB EFFERVESCENT 20 MEQ TAB.EFF PER TUBE PRN (10:54)
[2021-07-30] MEDS: FAMOTIDINE 20 MG/2 ML VIAL IV SCH (12:43)
[2021-07-30] MEDS: cefTRIAXone 1,000 MG in SODIUM CHLORIDE 0.9% 100 ML IV SCH (12:47)
[2021-07-30 13:03] LABS: Hematocrit 23.1 VOL% (35.7-47.0); Hemoglobin 7.4 GM/DL (12.0-16.0)
[2021-07-30] MEDS: fentaNYL INJ 1,250 MCG in DEXTROSE 5% 225 ML IV PRN ×2 (13:08→20:08)
[2021-07-30 18:30] LABS: Hematocrit 20.9 VOL% (35.7-47.0); Hemoglobin 6.6 GM/DL (12.0-16.0)
[2021-07-30] MEDS: EZETIMIBE 10 MG TABLET PO SCH (20:07)
[2021-07-31] MEDS: METOCLOPRAMIDE 10 MG/2 ML VIAL IV SCH ×5 (00:48→23:57)
[2021-07-31] MEDS: ALBUTEROL/IPRATROPIUM 3 ML NEB RESP TX SCH ×4 (01:29→19:30)
[2021-07-31] MEDS: ALBUMIN 25% 12.5 GM/50 ML VIAL IV SCH ×3 (01:40→18:42)
[2021-07-31] MEDS: fentaNYL INJ 1,250 MCG in DEXTROSE 5% 225 ML IV PRN ×2 (03:23→11:08)
[2021-07-31] MEDS: NOREPINEPHRINE 8 MG in SODIUM CHLORIDE 0.9% 242 ML IV PRN (03:27)
[2021-07-31 04:00] LABS: ABG Base Excess -1.3 MMOL/L (-2.5-2.5); ABG Oxygen Saturation 97.4 % (95-100); ABG PCO2 43.2 MM HG (35-48); ABG PH 7.363 (7.35-7.45); ABG PO2 106.3 MM HG (80-95); ABG TCO2 25.3 MMOL/L (23-27); Allen Test Positive; Pt O2 Delivery Device Ventilator
[2021-07-31 04:42] LABS: Hematocrit 24.2 VOL% (35.7-47.0); Hemoglobin 7.7 GM/DL (12.0-16.0); Immature Granulocytes % 1.9 %; Immature Granulocytes Absolute 0.14 #; Lymphocytes # 0.1 10*3/uL (1.4-4.0); Lymphocytes % 1.9 % (21.3-54.2); Mean Corpuscular HGB Conc 31.8 GM/DL (32-36); Mean Corpuscular Volume 89.6 FL (87-102); Mean Platelet Volume 12.3 FL (9.6-12.0); Monocytes % 1.7 % (1.7-12.7); NRBC # 0.12 10*3/uL; Neutrophils % 94.5 % (38.7-73.9); White Blood Count 7.2 T/CUMM (4-12)
[2021-07-31 04:47] LABS: Platelet Count 17 T/CUMM (130-400)
[2021-07-31 05:00] LABS: Band Neutrophils 1 % (0-10); Hypochromasia 1+; Lymphocytes 3 % (20-55); Nucleated Red Blood Cells 1 (0-5); Segmented Neutrophils 94 % (50-85); Total Cells Counted 100
[2021-07-31 05:01] LABS: Anisocytosis 1+; Microcytosis 1+; Platelet Estimate Decreased; Target Cells Slight
[2021-07-31 05:02] LABS: Polychromasia Slight
[2021-07-31 05:03] LABS: Albumin 3.6 G/DL (3.4-5.0); Calcium 8.6 MG/DL (8.5-10.1); Osmolality,Calculated 330.4 MOS/KG (273-304); Potassium 3.8 MMOL/L (3.5-5.1); Total Protein 5.9 G/DL (6.4-8.2)
[2021-07-31] MEDS: INSULIN REGULAR 100 UNIT/ML SUBCUT SCH ×6 (05:13→21:15)
[2021-07-31] MEDS: rOPINIRole 0.25 MG TABLET PO SCH ×4 (08:39→20:38)
[2021-07-31] MEDS: valACYclovir 500 MG TABLET PO SCH ×2 (08:40→20:38)
[2021-07-31] MEDS: CITALOPRAM 20 MG TABLET PO SCH (08:40)
[2021-07-31] MEDS: DESITIN 4OZ/NYSTATIN 15 GRAM MIXTURE PASTE TOP SCH ×2 (08:42→20:38)
[2021-07-31] MEDS: INSULIN GLARGINE 100 UNIT/ML SUBCUT SCH (10:56)
[2021-07-31 10:58] VITALS: BP 113/61
[2021-07-31] MEDS: methylPREDNISolone SOD SUC 40 MG/1 ML VIAL IV SCH ×2 (11:09→22:25)
[2021-07-31] MEDS: FAMOTIDINE 20 MG/2 ML VIAL IV SCH (11:09)
[2021-07-31] MEDS: cefTRIAXone 1,000 MG in SODIUM CHLORIDE 0.9% 100 ML IV SCH (11:10)
[2021-07-31] MEDS: EZETIMIBE 10 MG TABLET PO SCH (20:38)
[2021-07-31] MEDS: METOPROLOL TARTRATE 5 MG/5 ML VIAL IV PRN (22:25)
[2021-08-01] MEDS: INSULIN REGULAR 100 UNIT/ML SUBCUT SCH ×3 (00:13→09:30)
[2021-08-01] MEDS: ALBUTEROL/IPRATROPIUM 3 ML NEB RESP TX SCH ×3 (00:28→14:08)
[2021-08-01] MEDS: ALBUMIN 25% 12.5 GM/50 ML VIAL IV SCH ×2 (01:43→09:42)
[2021-08-01 04:17] LABS: Basophils % 0.1 % (0.0-0.8); Hematocrit 23.2 VOL% (35.7-47.0); Hemoglobin 7.6 GM/DL (12.0-16.0); Immature Granulocytes % 2.4 %; Immature Granulocytes Absolute 0.18 #; Lymphocytes # 0.2 10*3/uL (1.4-4.0); Lymphocytes % 2.4 % (21.3-54.2); Mean Corpuscular HGB Conc 32.8 GM/DL (32-36); Mean Corpuscular Volume 88.9 FL (87-102); Monocytes % 1.8 % (1.7-12.7); NRBC # 0.21 10*3/uL; Neutrophils % 93.3 % (38.7-73.9); Red Blood Count 2.61 MC/CUMM (3.8-5.5); Red Cell Distribution Width 21.1 % (9.3-17.3); White Blood Count 7.7 T/CUMM (4-12)
[2021-08-01 04:24] LABS: Platelet Count 19 T/CUMM (130-400)
[2021-08-01 04:34] LABS: ABG Base Excess -2.2 MMOL/L (-2.5-2.5); ABG HCO3 22.5 MMOL/L (20-26); ABG Oxygen Saturation 96.3 % (95-100); ABG PCO2 34.5 MM HG (35-48); ABG PH 7.412 (7.35-7.45); ABG PO2 76.4 MM HG (80-95); ABG TCO2 20.7 MMOL/L (23-27)
[2021-08-01 04:35] LABS: Albumin 3.7 G/DL (3.4-5.0); Calcium 8.3 MG/DL (8.5-10.1); Hypochromasia 1+; Lymphocytes 1 % (20-55); Microcytosis 1+; Nucleated Red Blood Cells 4 (0-5); Osmolality,Calculated 338.9 MOS/KG (273-304); Platelet Estimate Decreased; Potassium 4.4 MMOL/L (3.5-5.1); Segmented Neutrophils 98 % (50-85); Total Cells Counted 100; Total Protein 5.6 G/DL (6.4-8.2)
[2021-08-01 04:45] LABS: Bilirubin,Total 13.9 MG/DL (0.20-1.00)
[2021-08-01] MEDS: METOCLOPRAMIDE 10 MG/2 ML VIAL IV SCH (05:44)
[2021-08-01] MEDS: rOPINIRole 0.25 MG TABLET PO SCH (09:38)
[2021-08-01] MEDS: CITALOPRAM 20 MG TABLET PO SCH (09:39)
[2021-08-01] MEDS: methylPREDNISolone SOD SUC 40 MG/1 ML VIAL IV SCH (09:39)
[2021-08-01] MEDS: valACYclovir 500 MG TABLET PO SCH (09:39)
[2021-08-01] MEDS: INSULIN GLARGINE 100 UNIT/ML SUBCUT SCH (09:41)
[2021-08-01] MEDS: DESITIN 4OZ/NYSTATIN 15 GRAM MIXTURE PASTE TOP SCH (09:42)
[2021-08-01] MEDS ORDERED: LORazepam 2 MG/1 ML VIAL IV PRN (10:38)
[2021-08-01] MEDS ORDERED: MORPHINE 2 MG/1 ML SYRINGE IV PRN (10:38)
[2021-08-01] MEDS ORDERED: HYDROmorphone 2 MG/1 ML VIAL IV PRN (11:05)
[2021-08-01] MEDS ORDERED: LORazepam 2 MG/1 ML VIAL ONE ×8 (12:08→16:32)
[2021-08-01] MEDS: LORazepam 2 MG/1 ML VIAL IV PRN ×8 (12:10→16:36)
[2021-08-01] MEDS: HYDROmorphone 2 MG/1 ML VIAL IV PRN ×4 (13:02→16:38)
== END 2021-08-01 17:11 | disposition expired | DRG 870 ==
LOC: EDBD → EDUNIT# → N.ED 15:32 → N.EDINP 17:37 → SUATTDRO 17:37 → N.CC 18:03 → N.ICU 07-31 19:02
PROVIDERS: ADMIT Internal Medicine; ATTEND Family Medicine